=== PATIENT | male | born 1965 | race Caucasian/White ===

== ENCOUNTER 2022-10-04 22:54 | Emergency (ER) | payer MEDICARE, SELFPAY ==
--- NOTE | ~2022-10-04 | XR_ITS ---
EXAMINATION: XR FINGER, RIGHT CLINICAL INFORMATION: Second finger trauma COMPARISON: None available. TECHNIQUE: Three views of the right hand second digit. FINDINGS: No fracture or dislocation. Alignment maintained. Joint spaces are maintained. The soft tissues are unremarkable. XR/XR finger RT min 2V IMPRESSION: No fracture or malalignment.
[2022-10-04 23:07] VITALS: BP 171/93; PULSE 61; RESP 16; TEMP 36.6; O2SAT 94; BMI 36.3
[2022-10-05] MEDS: Diphth,Pertus(ACell),Tet Adult 0.5 ML SYRINGE IM (00:58)
--- NOTE | 2022-10-05 01:00 | ED.GENADULT ---
HPI - General Adult General Chief complaint: Wound/Laceration Stated complaint: Lac on Finger Time Seen by Provider: 10/05/22 00:47 Source: patient, RN notes reviewed and old records reviewed Mode of arrival: ambulatory Limitations: no limitations History of Present Illness HPI narrative: 57-year-old male presents for evaluation of right index finger pain. The patient slammed his right index finger in a door at 6:30 p.m. last night. He complains of pain that radiates from his right index finger tip up his right arm His pain is 8/10. He is able to flex and extend the finger He sustained a laceration to the tip of the finger He is unsure of his last tetanus shot Related Data Allergies Allergy/AdvReac Type Severity Reaction Status Date / Time No Known Allergies Allergy Verified 10/04/22 23:11 Review of Systems Musculoskeletal: Comments: Pain to right 2nd finger Integumentary/Breasts: Comments: Open wound to tip of right 2nd finger PMFSH Social History Social History Advance Directives: No Advance Directives Information Provided: Yes Physical Exam ED Vital Signs: Vital Signs - 24 hr 10/04/22 23:07 Temperature 97.8 F Pulse Rate 61 Respiratory Rate 16 Blood Pressure 171/93 H Pulse Oximetry 94 Oxygen Delivery Method Room Air BMI result Body Mass Index 36.3 Const General: healthy appearing, comfortable, no acute distress, alert and awake Nutritional Appearance: well nourished Orientation/consciousness: patient oriented x3 Resp Effort & Inspection: normal respiratory effort, able to speak in complete sentences and not labored Neuro General: patient oriented x3 Cranial nerves: Yes Bilaterally intact EOM present Cognition (Neuro): normal cognition Extrem Other: Patient has a 2 cm flap of skin missing from the very tip of the right 2nd finger. This is an avulsion, no laceration amenable to sutures. There is no visible bone underneath. Patient has some tenderness to the right 2nd the IP and PIP joints. No tenderness the right 2nd MCP joint. Course Reevaluation(s) Reevaluation #1: Patient re-evaluated after cleaning the wound will better. There is only an avulsion, the soft tissue underneath is actually intact in just the skin is missing. We will wrap the finger. He will be given a dose of ibuprofen. There is no fracture seen on x-ray, Medications Administered Discontinued Medications Generic Name Dose Route Start Last Admin Trade Name Freq PRN Reason Stop Dose Admin Diphtheria/Tetanus/Acell Pertussis 0.5 ml 10/05/22 00:53 10/05/22 00:58 Diphth,Pertus(Acell),Tet Adult 0.5 Ml Syringe IM 10/05/22 00:54 0.5 ml .ONCE ONE Administration Medical Decision Making Medical Decision Making MDM Narrative: Clinically the patient has an avulsion injury. Will get an x-ray to rule out open fracture. Patient's tetanus was updated as he cannot remember the last time he had 1. Will have the patient soak the tip of his finger, so walk-in clinic to been better evaluate to make sure there is no area that can be sutured. Differential Diagnosis Avulsion injury Laceration Finger fracture Dislocation Open fracture Discharge Plan Discharge Clinical Impression: Avulsion of skin Patient Disposition: Home, Self-Care Instructions: Skin Avulsion (ED) Additional Instructions: Your x-ray did not show any fractures. There is a piece of skin missing from the tip of the finger that cannot be replaced. This will eventually scar over Use ibuprofen/Tylenol for the pain. You may apply topical antibiotic to the wound Your tetanus shot was updated today
--- NOTE | 2022-10-05 01:04 | PC.NURSE ---
Pt soaking finger in warm water per PA
[2022-10-05] MEDS: Ibuprofen 800 MG TABLET PO (01:40)
== END 2022-10-05 01:48 | disposition home or self-care (01) ==
PROVIDERS: Emergency Provider Emergency Medicine
DX: S61.210A Laceration without foreign body of right index finger without damage to nail, initial encounter (principal); W23.1XXA Caught, crushed, jammed, or pinched between stationary objects, initial encounter; Y93.9 Activity, unspecified; Y92.9 Unspecified place or not applicable; Y99.9 Unspecified external cause status
CPT/HCPCS: 73140; 90471; 90715; 99283; 99284

== ENCOUNTER 2022-10-13 06:41 | Inpatient (IN) | payer MEDICARE, SELFPAY ==
--- NOTE | ~2022-10-13 | CT_ITS ---
EXAMINATION: CT ABDOMEN AND PELVIS WITHOUT CONTRAST CLINICAL INFORMATION: Abdominal pain COMPARISON: None available. TECHNIQUE: Multidetector volumetric imaging was performed from the superior aspect of the liver through the pubic symphysis. Sagittal and coronal reformatted images were obtained on the technologist's workstation. This CT examination was performed using dose optimization techniques as appropriate, variously including the following: *Automated exposure control *Adjustment of mA and/or kV according to patient size (this includes techniques or standardized protocols for targeted exams where dose is matched to indication/reason for exam; i.e. extremities or head) *Use of iterative reconstruction technique DLP: 661 mGy-cm FINDINGS: LUNG BASES: The visualized lung bases are unremarkable. LIVER, GALLBLADDER, AND BILIARY TREE: Heterogeneous liver attenuation with low-attenuation areas questionable for areas of focal fatty infiltration versus beam hardening artifact from the adjacent ribs. The gallbladder is unremarkable with no evidence of radiopaque gallstones, gallbladder wall thickening, or obvious pericholecystic inflammatory changes. PANCREAS: Unremarkable. SPLEEN: Unremarkable. ADRENAL GLANDS: Unremarkable. KIDNEYS AND URETERS: The kidneys are normal in size, shape, and attenuation. No hydronephrosis, hydroureter, or calculi seen. 2 cm cyst in the lower pole of the right kidney. No imaging follow-up recommended. No perinephric stranding. BLADDER: Unremarkable. GASTROINTESTINAL TRACT: The small and large bowel are unremarkable. The appendix is unremarkable. ABDOMINAL WALL: Small umbilical hernia containing fat. LYMPH NODES: No enlarged lymph nodes. Shotty bilateral inguinal, retroperitoneal and periportal lymph nodes. No ascites. VASCULAR: Unremarkable. PELVIC VISCERA: Unremarkable. OSSEOUS STRUCTURES: Degenerative changes of the spine. CT/CT abdomen pelvis wo IV con IMPRESSION: Heterogeneous liver attenuation, question artifact from the adjacent rib versus areas of focal fatty infiltration. Small umbilical hernia containing fat. Fleischner guidelines were followed.
--- NOTE | ~2022-10-13 | US_ITS ---
EXAMINATION: US VENOUS WITH DOPPLER UPPER EXTREMITY, BILATERAL CLINICAL INFORMATION: Bilateral swelling and pain. History of previous IV COMPARISON: None available. TECHNIQUE: Ultrasound of the upper extremity is performed using compression sonography and color and pulse Doppler flow with assessment of augmentation of flow. There is also imaging and Doppler assessment of the jugular and subclavian veins. Spectral analysis with color-flow imaging is performed. FINDINGS: Right: There is occlusive thrombus seen in the cephalic vein. The right internal jugular, subclavian, axillary, brachial and basilic veins are patent. Left: There is occlusive thrombus seen in the left basilic vein. The left internal jugular, subclavian, axillary, brachial and cephalic veins are patent. US/US venous duplex UE BI IMPRESSION: Occlusive thrombus in the right cephalic vein and left basilic vein. Findings communicated to Dr. Elam by telephone on 10/17/2022 at 3:05 PM.
--- NOTE | ~2022-10-13 | US_ITS ---
EXAMINATION: US VENOUS ULTRASOUND WITH DOPPLER LOWER EXTREMITY, LEFT CLINICAL INFORMATION: Left lower extremity redness since yesterday COMPARISON: None available. TECHNIQUE: Ultrasound of the deep veins is performed from the hip to the calf with compression sonography and color and pulse Doppler assessment. Spectral analysis with color-flow imaging is performed. FINDINGS: There is normal venous compression and respiratory variation and augmented flow. The visualized common femoral vein, superficial femoral vein, profunda femoral vein, popliteal vein, and the trifurcation region shows no evidence of deep venous thrombosis. There is no significant popliteal fossa cyst. There are multiple inguinal lymph nodes in the left groin. The largest measuring 4.3 x 0.9 x 2.2 cm. If the patient's symptoms persist, followup ultrasound in 5 days 7 days might be of value to exclude proximal propagation from a non-visualized calf vein. US/US venous duplex LE IMPRESSION: No DVT demonstrated in the left lower extremity.
--- NOTE | ~2022-10-13 | US_ITS ---
EXAMINATION: US VENOUS ULTRASOUND WITH DOPPLER LOWER EXTREMITY, LEFT CLINICAL INFORMATION: Lower extremity swelling and pain COMPARISON: None available. TECHNIQUE: Ultrasound of the deep veins is performed from the hip to the calf with compression sonography and color and pulse Doppler assessment. Spectral analysis with color-flow imaging is performed. FINDINGS: There is normal venous compression and respiratory variation and augmented flow. The visualized common femoral vein, superficial femoral vein, profunda femoral vein, popliteal vein, and the trifurcation region shows no evidence of deep venous thrombosis. There is no significant popliteal fossa cyst. If the patient's symptoms persist, followup ultrasound in 5 days 7 days might be of value to exclude proximal propagation from a non-visualized calf vein. US/US venous duplex LE IMPRESSION: No DVT demonstrated in the left lower extremity.
--- NOTE | ~2022-10-13 | CT_ITS ---
EXAMINATION: CT left lower leg without contrast INDICATION: ? gas COMPARISON: None TECHNIQUE: Multidetector volumetric imaging was obtained through the left lower leg from the knee through the ankle without intravenous contrast material. Multiplanar reformatted images in coronal and sagittal orientations were submitted. This CT examination was performed using dose optimization techniques as appropriate, variously including the following: *Automated exposure control *Adjustment of mA and/or kV according to patient size (this includes techniques or standardized protocols for targeted exams where dose is matched to indication/reason for exam; i.e. extremities or head) *Use of iterative reconstruction technique DLP: 299 mGy-cm FINDINGS: Bone mineralization is normal. No fracture or malalignment. No areas of osteolysis or periostitis. Joint spaces are normal in appearance at both the knee and ankle. No effusions. There is subcutaneous fat stranding at the anterior and lateral aspects of the lower leg proximally and at the anterior and medial aspects of the ankle. No subcutaneous gas. No fluid collections. Deep fascial planes are normal in appearance. Calf musculature is unremarkable. Tendons are grossly intact. CT/CT lower leg LT wo IV con IMPRESSION: Subcutaneous fat stranding at the proximal and medial aspects of the lower leg and ankle, most consistent with cellulitis. No subcutaneous gas or fluid collections.
[2022-10-13 07:00] VITALS: BP 120/69; PULSE 100; RESP 20; TEMP 36.4; O2SAT 100; BMI 36.8
--- NOTE | 2022-10-13 07:17 | ED_ITS ---
HPI - General Adult General Chief complaint: General Medical Stated complaint: Left leg pain/vomiting/chestpain Time Seen by Provider: 10/13/22 07:19 Source: patient Mode of arrival: ambulatory Limitations: no limitations History of Present Illness HPI narrative: This is a 57 years old male presented to the emergency department with chief complaint of left lower extremity redness since yesterday he also report of fever and vomiting . He has no comorbidity but high blood pressure Onset (ago): day(s) (1) Radiation: non-radiation Severity: moderate Quality: burning Pain Consistency: constant Relieving factors: none Associated symptoms: denies other symptoms Related Data Home Medications Medication Instructions Recorded Confirmed ascorbic acid (vitamin C) 1,000 mg 1,000 mg PO DAILY 10/13/22 10/13/22 tablet (Vitamin C) cholecalciferol (vitamin D3) 25 25 mcg PO DAILY 10/13/22 10/13/22 mcg (1,000 unit) tablet (Vitamin D3) hydralazine 50 mg tablet 50 mg PO BIDWM 10/13/22 10/13/22 losartan 100 1 tab PO DAILY 10/13/22 10/13/22 mg-hydrochlorothiazide 25 mg tablet (Hyzaar) Allergies Allergy/AdvReac Type Severity Reaction Status Date / Time No Known Allergies Allergy Verified 10/04/22 23:11 Review of Systems Constitutional: Constitutional: Reports no additional constitutional complaints and Reports fever(s) Gastrointestinal: Gastrointestinal: Reports vomiting [facility] Past Medical History [facility] Narrative: Hypertension Medical History Psoriasis Social History Social History Alcohol intake: never Patient Tobacco Use Status: Never used Tobacco Smoked in Last 30 Days: No Use of substances other than those prescribed or required for medical reasons: No Advance Directives: No Advance Directives Information Provided: Yes Nutrition Risks: No Nutritional Risk Physical Exam ED Vital Signs: Vital Signs - 24 hr 10/13/22 07:00 10/13/22 07:37 10/13/22 09:53 Temperature 97.6 F 97.6 F 98.7 F Pulse Rate 100 94 81 Respiratory Rate 20 18 14 Blood Pressure 120/69 108/68 120/52 L Pulse Oximetry 100 95 93 Oxygen Delivery Method Room Air Room Air Room Air BMI result Body Mass Index 36.8 Const General: cooperative Nutritional Appearance: well nourished Orientation/consciousness: patient oriented x3 HENMT Head: Yes normal to inspection General nose exam: Normal external nose present Face and sinus: Yes normal facial exam Mouth: Normal oral and palatal mucosa present Neck Neck: Yes normal visual inspection, Yes full ROM and Yes no lymphadenopathy Chest Chest palpation & inspection: normal inspection of the chest Resp Effort & Inspection: normal respiratory effort Auscultation: clear to auscultation bilaterally Cardio Jugular venous distension: no JVD Rate: regular rate Rhythm: regular rhythm GI Inspection: Yes normal to inspection Palpation (GI): Soft to palpation, not firm, nontender and no guarding Skin Other: Lower extremities there is extensive redness left knee down to the foot he has excellent pulses in the foot Neuro General: patient oriented x3 Extrem Other: Course Reevaluation(s) Reevaluation #1: vital sign remain stable no tachycardia no hypotension,WBC noted along with lactic acid ,Broad spectrum AB started IV fluids ordered base on Lean body Weight ,also got 250 cc fluids with vanco and 50 cc with cefepine,US leg showed no DVT,I will order ct also to r/o gas Time: 09:45 Reevaluation #2: ct done c/w cellulitis no gas no abscess,BP remain stable 123/52 hert rate 81,good capillary refill,COR RRR,Lungs clear non toxic Time: 10:28 Medications Administered Generic Name Dose Route Start Last Admin Trade Name Freq PRN Reason Stop Dose Admin Enoxaparin Sodium 40 mg 10/13/22 10:45 10/13/22 12:27 Enoxaparin Sodium 40 Mg/0.4 Ml Syringe SUBCUT 40 mg Q24H LUCÍA Administration Lactated Ringer's 1,000 mls @ 100 mls/hr 10/13/22 10:45 10/13/22 12:08 Lr IVCONT 100 mls/hr .Q10H LUCÍA Administration Piperacillin Sod/Tazobactam 50 mls @ 100 mls/hr 10/13/22 13:00 10/13/22 13:51 Sod 3.375 gm/ Sodium Chloride IV Infused Q6H LUCÍA Infusion Discontinued Medications Generic Name Dose Route Start Last Admin Trade Name Freq PRN Reason Stop Dose Admin Cefepime HCl 2 gm/ Sodium 50 mls @ 100 mls/hr 10/13/22 08:20 10/13/22 09:00 Chloride IV 10/13/22 08:49 Infused ONCE ONE Infusion Sodium Chloride 3,102.57 mls @ 3,102.57 mls/hr 10/13/22 08:20 10/13/22 11:43 Ns 30 ml/kg infuse over 1 hr (3102.57 ml) 10/13/22 09:19 Infused IV Infusion .Q1H STA Vancomycin HCl 2,000 mg in 500 mls @ 250 mls/hr 10/13/22 09:45 10/13/22 12:13 Vancomycin/Ns IV 10/13/22 11:44 Infused ONCE ONE Infusion Morphine Sulfate 4 mg 10/13/22 08:45 10/13/22 08:53 Morphine Sulfate 4 Mg/Ml Cartridge IVPUSH 10/13/22 08:46 4 mg ONCE ONE Administration Protocol Potassium Chloride 20 meq 10/13/22 09:00 10/13/22 09:38 Potassium Chloride Er 20 Meq Tab.Er.Prt PO 10/13/22 09:01 20 meq ONCE ONE Administration Medical Decision Making Medical Decision Making [facility] Narrative: Patient presented with extensive cellulitis of the left lower extremity we will get labs of blood culture start antibiotic anticipate admission Differential Diagnosis Differential Diagnoses: The differential diagnosis associated with the presentation includes Cellulitis/sepsis/leg abscess Admission/Observation Consideration of admission/observation: Escalation of care including admission/observation considered Consult Healthcare Provider Management of the patient was discussed with: Hospitalist Lab Data [facility] Lab Attestation statement: I reviewed the patient's lab results. Leukocytosis/lactic acidosis hyperkalemia acute renal failure 10/13/22 07:55 10/13/22 07:55 Labs: Lab Results 10/13/22 10/13/22 10/13/22 Range/Units 07:55 07:55 07:55 WBC 28.7 H (4.8-10.8) X10*3/uL RBC 5.32 (4.60-5.80) X10*6/uL Hgb 15.5 (14.0-18.0) g/dl Hct 44.3 (42.0-52.0) % MCV 83.3 (80.0-98.0) fL MCH 29.1 (27.0-33.0) pg MCHC 35.0 (31.0-36.0) g/dl RDW 12.1 (11.0-16.0) % Plt Count 239 (160-400) X10*3/uL MPV 9.6 (9.4-12.4) fL Immature Gran % (Auto) 1.3 H (0.0-0.4) % Neut % (Auto) 88.9 H (45-73) % Lymph % (Auto) 4.8 L (20-40) % [place] % (Auto) 4.8 (2-11) % Eos % (Auto) 0.0 (0-4) % Baso % (Auto) 0.2 (0-2) % Lymph # (Auto) 1.4 (1.2-4.9) X10*3/uL [place] # (Auto) 1.4 H (0.1-1.2) X10*3/uL Eos # (Auto) 0.0 (0.0-0.4) X10*3/uL Baso # (Auto) 0.1 (0.0-0.2) X10*3/uL Abs Immat Gran (auto) 0.37 H (0.00-0.03) X10*3/uL Absolute Neuts (auto) 25.5 H (2.0-8.3) x10*3/uL Absolute Nucleated RBC 0.000 (0.0-0.012) X10*3/uL Nucleated RBC % (auto) 0.0 (0.0-0.2) /100WBC Smear Tech's Comments VERIFIED Sodium 134 L (135-145) mmol/L Potassium 3.2 L (3.3-5.1) mmol/L Chloride 96 (96-108) mmol/L Carbon Dioxide 26 (22-29) mmol/L Anion Gap 15 (12-20) BUN 26 H (9-16) mg/dL Creatinine 1.84 H (0.5-1.4) mg/dL Estim Creat Clear Calc 48.6 Estimated GFR 38 Random Glucose 207 H (60-115) mg/dL Lactic Acid 3.1 H* (0.5-2.0) mmol/L Lactic Acid F/U @ 2Hr (0.5-2.0) mmol/L Calcium 10.2 (8.4-10.2) mg/dL Total Bilirubin 1.1 H (0.0-1.0) mg/dL AST 18 (5-37) U/L ALT 26 (0-40) U/L Alkaline Phosphatase 68 (39-117) U/L Total Protein 7.4 (6.5-8.0) g/dL Albumin 4.3 (3.5-5.0) g/dL 10/13/22 Range/Units 10:21 WBC (4.8-10.8) X10*3/uL RBC (4.60-5.80) X10*6/uL Hgb (14.0-18.0) g/dl Hct (42.0-52.0) % MCV (80.0-98.0) fL MCH (27.0-33.0) pg MCHC (31.0-36.0) g/dl RDW (11.0-16.0) % Plt Count (160-400) X10*3/uL MPV (9.4-12.4) fL Immature Gran % (Auto) (0.0-0.4) % Neut % (Auto) (45-73) % Lymph % (Auto) (20-40) % [place] % (Auto) (2-11) % Eos % (Auto) (0-4) % Baso % (Auto) (0-2) % Lymph # (Auto) (1.2-4.9) X10*3/uL [place] # (Auto) (0.1-1.2) X10*3/uL Eos # (Auto) (0.0-0.4) X10*3/uL Baso # (Auto) (0.0-0.2) X10*3/uL Abs Immat Gran (auto) (0.00-0.03) X10*3/uL Absolute Neuts (auto) (2.0-8.3) x10*3/uL Absolute Nucleated RBC (0.0-0.012) X10*3/uL Nucleated RBC % (auto) (0.0-0.2) /100WBC Smear Tech's Comments Sodium (135-145) mmol/L Potassium (3.3-5.1) mmol/L Chloride (96-108) mmol/L Carbon Dioxide (22-29) mmol/L Anion Gap (12-20) BUN (9-16) mg/dL Creatinine (0.5-1.4) mg/dL Estim Creat Clear Calc Estimated GFR Random Glucose (60-115) mg/dL Lactic Acid (0.5-2.0) mmol/L Lactic Acid F/U @ 2Hr 1.2 (0.5-2.0) mmol/L Calcium (8.4-10.2) mg/dL Total Bilirubin (0.0-1.0) mg/dL AST (5-37) U/L ALT (0-40) U/L Alkaline Phosphatase (39-117) U/L Total Protein (6.5-8.0) g/dL Albumin (3.5-5.0) g/dL Independent Interpretation I performed an independent interpretation of an: Ultrasound Interpretation: No DVT Radiology Impression Discussion of test interpretation with radiology: I have reviewed the radiologist's reading. Radiologist Impression: performed. FINDINGS: There is normal venous compression and respiratory variation and augmented flow. The visualized common femoral vein, superficial femoral vein, profunda femoral vein, popliteal vein, and the trifurcation region shows no evidence of deep venous thrombosis. ? There is no significant popliteal fossa cyst. There are multiple inguinal lymph nodes in the left groin. The largest measuring 4.3 x 0.9 x 2.2 cm. If the patient's symptoms persist, followup ultrasound in 5 days 7 days might be of value to exclude proximal propagation from a non-visualized calf vein. US/US venous duplex LE LT IMPRESSION: No DVT demonstrated in the left lower extremity. ? External Record Review External record reviewed: Inpatient record Chronic Conditions Patient?s care impacted by: Hypertension Discharge Plan Discharge Clinical Impression: Cellulitis of left leg, Acidosis, lactic, Acute renal failure, Acute hypokalemia Patient Disposition: Admitted As Inpatient
[2022-10-13 07:37] VITALS: BP 108/68; PULSE 94; RESP 18; TEMP 36.4; O2SAT 95
--- NOTE | 2022-10-13 07:39 | PC.NURSE ---
pt AOx3, reporting left groin pain that is radiating down to left leg. leg is red and warm to touch. Pedal pulses intact. Pt reporting N/V/D yesterday which has mostly subsided. Vitals stable. Will draw lab work
[2022-10-13 08:04] LABS: Basophils Absolute Auto 0.1 X10*3/uL (0.0-0.2); Basophils Percent Auto 0.2 % (0-2); Hematocrit 44.3 % (42.0-52.0); Hemoglobin 15.5 g/dl (14.0-18.0); Imm Gran Abs Auto 0.37 X10*3/uL (0.00-0.03); Imm Gran Pct Auto 1.3 % (0.0-0.4); Lymphocytes Absolute Auto 1.4 X10*3/uL (1.2-4.9); Lymphocytes Percent Auto 4.8 % (20-40); MANUAL DIFF FLAG SCAN; Mean Corpuscular Hemoglobin 29.1 pg (27.0-33.0); Mean Corpuscular Volume 83.3 fL (80.0-98.0); Mean Platelet Volume 9.6 fL (9.4-12.4); Monocytes Absolute Auto 1.4 X10*3/uL (0.1-1.2); Monocytes Percent Auto 4.8 % (2-11); Neutrophils Absolute Auto 25.5 x10*3/uL (2.0-8.3); Neutrophils Percent Auto 88.9 % (45-73); Platelet Count 239 X10*3/uL (160-400); Red Blood Count 5.32 X10*6/uL (4.60-5.80); Red Cell Distribution Width 12.1 % (11.0-16.0); SCAN SMEAR FLAG 1; White Blood Count 28.7 X10*3/uL (4.8-10.8)
[2022-10-13 08:19] LABS: Lactic Acid 3.1 mmol/L (0.5-2.0)
[2022-10-13 08:20] LABS: Alanine Aminotransferase 26 U/L (0-40); Albumin Level 4.3 g/dL (3.5-5.0); Alkaline Phosphatase 68 U/L (39-117); Anion Gap 15 (12-20); Aspartate Amino Transferase 18 U/L (5-37); Bilirubin Total 1.1 mg/dL (0.0-1.0); Blood Urea Nitrogen 26 mg/dL (9-16); Calcium 10.2 mg/dL (8.4-10.2); Carbon Dioxide 26 mmol/L (22-29); Chloride 96 mmol/L (96-108); Creatinine Clr Calc Pharmacy 48.6; Estimated Glomerular Filt Rate 38; Glucose Random 207 mg/dL (60-115); Potassium 3.2 mmol/L (3.3-5.1); Sodium 134 mmol/L (135-145); Total Protein 7.4 g/dL (6.5-8.0)
[2022-10-13 08:22] LABS: SLIDE REVIEW VERIFIED
[2022-10-13] MEDS: cefEPime HCl 2 GM in 0.9 % Sodium Chloride 50 ML IV (08:30)
--- NOTE | 2022-10-13 08:31 | PC.NURSE ---
cefepime started per order. Initial vial of vanco was wasted be nurse was unable to get diluted med back into bag of saline. After removing some air from the bag we were able to add the med back to the bag and another vial of vanco was not needed and not removed from Pyxis.
[2022-10-13] MEDS: Morphine Sulfate 4 MG/ML CARTRIDGE IVPUSH ×2 (08:53→18:48)
--- NOTE | 2022-10-13 09:32 | PC.NURSE ---
Vanco was not hung because when order was change dosing was not correct. Pharmacy is changing dosing. When verified, this RN will admin vanco as ordered.
[2022-10-13] MEDS: vancomycin/NS 2,000 MG/500 ML PLAST..BAG 250 MG IV (09:38)
[2022-10-13] MEDS: Potassium Chloride ER 20 MEQ TAB.ER.PRT PO (09:38)
--- NOTE | 2022-10-13 09:40 | PC.NURSE ---
Pt back from CT scan. Adjusted Vanco (2g in 500ml) hanging per order. will cont to sandra
[2022-10-13 09:53] VITALS: BP 120/52; PULSE 81; RESP 14; TEMP 37.1; O2SAT 93
[2022-10-13 10:01] LABS: Reflex Lactate? Lactic Acid Added
[2022-10-13 10:36] LABS: ~Lactic Acid-LAB USE ONLY 1.2 mmol/L (0.5-2.0)
--- NOTE | 2022-10-13 10:51 | PHA.MEDREC ---
Pharmacy Consult ? Medication Reconciliation Pharmacy has completed the medication reconciliation Spoke to patient to confirm medications. Patient states he only takes Hyzaar 100/25 mg daily and Hydralazine 50mg BIDWM. Patient's prescriptions were filled at [address], but does not show up on claim history. Patient prefers [facility] as primary pharmacy when in [place].
[2022-10-13 11:37] LABS: Estimated Average Glucose 108 mg/dL; Hemoglobin A1C 149.0242 umol/L; Hemoglobin A1c % 5.4 %
--- NOTE | 2022-10-13 11:41 | PM.IMHP ---
History of Present Illness Date of Service: 10/13/22 Chief Complaint: LLE pain and swelling A 57 years old male with PMH of psoriasis who presents to the hospital complaining of LLE erythema and pain for 1 day CLINICAL DOCUMENTATION SPEC. the patient reports that he went for dinner on and started feeling sick to his stomach after that with nausea, vomiting and diarrhea which has improved since but noticed Saturday morning LLE swelling and pain associated with chills and feeling unwell. No headache, chest pain, palpitations, SOB, urinary symptoms. In ED found to have elevated WBCs, tachycardia and elevated LA. admitted for treatment of LLE cellulitis. Review of Systems Review of Systems: No fever, but has chills or weakness No chest pain, palpitation No shortness of breath or coughing No abdominal pain, nausea or vomiting No urinary symptoms LLE rash, erythema PMFSH Medical History Psoriasis Social History Alcohol intake: never Smoked in Last 30 Days: No Use of substances other than those prescribed or required for medical reasons: No Advance Directives: No Advance Directives Information Provided: Yes Meds Allergies Allergy/AdvReac Type Severity Reaction Status Date / Time No Known Allergies Allergy Verified 10/04/22 23:11 Active Medications: Current Medications Acetaminophen (Acetaminophen 325 Mg Tablet) 650 mg PO Q6H PRN PRN Reason: Pain, Mild (Pain Scale 1-3) Enoxaparin Sodium (Enoxaparin Sodium 40 Mg/0.4 Ml Syringe) 40 mg SUBCUT Q24H [facility] Vancomycin HCl (Vancomycin/Ns) 2,000 mg in 500 mls @ 250 mls/hr IV ONCE ONE Stop: 10/13/22 11:44 Last Admin: 10/13/22 09:38 Dose: 250 mls/hr Piperacillin Sod/Tazobactam (Sod 2.25 gm/ Sodium Chloride) 50 mls @ 100 mls/hr IV Q6H LUCÍA Lactated Ringer's (Lr) 1,000 mls @ 100 mls/hr IVCONT .Q10H LUCÍA Morphine Sulfate (Morphine Sulfate 4 Mg/Ml Cartridge) 4 mg IVPUSH Q4H PRN; Protocol PRN Reason: Pain, Severe (Pain Scale 7-10) Ondansetron HCl (Ondansetron Hcl 4 Mg/2 Ml Vial) 4 mg IVPUSH Q8H PRN PRN Reason: Nausea and Vomiting Pharmacy Consult (Consult Rx Perform Med Rec) 1 each MISCELLANE ONCE PRN PRN Reason: Consult order Pharmacy Consult (Consult Rx Vancomycin Dosing) 1 each MISCELLANE DAILY PRN PRN Reason: Consult order Sodium Chloride (0.9 % Sodium Chloride Flush 3 Ml Syringe) 3 ml IVFLUSH [facility] Medications Medication Instructions Recorded Confirmed Last Taken Type ascorbic acid (vitamin C) 1,000 mg 1,000 mg PO DAILY 10/13/22 10/13/22 10/13/22 09:00 History tablet (Vitamin C) cholecalciferol (vitamin D3) 25 25 mcg PO DAILY 10/13/22 10/13/22 10/13/22 09:00 History mcg (1,000 unit) tablet (Vitamin D3) hydralazine 50 mg tablet 50 mg PO BIDWM 10/13/22 10/13/22 10/13/22 09:00 History losartan 100 1 tab PO DAILY 10/13/22 10/13/22 10/13/22 09:00 History mg-hydrochlorothiazide 25 mg tablet (Hyzaar) Physical Exam Vital Signs and Narrative: Vital Signs: Last Vital Signs Temp 98.7 F 10/13/22 09:53 Pulse 81 10/13/22 09:53 Resp 14 10/13/22 09:53 BP 120/52 L 10/13/22 09:53 Pulse Ox 93 10/13/22 09:53 O2 Del Method Room Air 10/13/22 09:53 BMI result Body Mass Index 36.8 Const: Other: Constitutional : Awake, interactive, not in distress Neck : Normal inspection, Supple Cardiovascular : RRR, no JVP, no lower extremity edema Respiratory : good bilateral air entry, no crackles, wheezes or rhonchi Gastrointestinal: soft, lax, Normal bowel sounds, Non tender Skin : Warm, Dry, LLE erythema and tenderness with warmth, dry plaque of psoriasis on knee, normal ROM Neurological : Alert & oriented x3, No focal deficit Results Labs 10/13/22 07:55 10/13/22 07:55 Labs: Laboratory Results - last 24 hr 10/13/22 10/13/22 10/13/22 07:55 07:55 07:55 MCV 83.3 MCH 29.1 MCHC 35.0 RDW 12.1 Plt Count 239 MPV 9.6 Immature Gran % (Auto) 1.3 H Neut % (Auto) 88.9 H Lymph % (Auto) 4.8 L [place] % (Auto) 4.8 Eos % (Auto) 0.0 Baso % (Auto) 0.2 Lymph # (Auto) 1.4 [place] # (Auto) 1.4 H Eos # (Auto) 0.0 Baso # (Auto) 0.1 Abs Immat Gran (auto) 0.37 H Absolute Neuts (auto) 25.5 H Absolute Nucleated RBC 0.000 Nucleated RBC % (auto) 0.0 Smear Tech's Comments VERIFIED Anion Gap 15 Estim Creat Clear Calc 48.6 Estimated GFR 38 Random Glucose 207 H Estimat Average Glucose Hemoglobin A1c % Lactic Acid 3.1 H* Lactic Acid F/U @ 2Hr Calcium 10.2 Total Bilirubin 1.1 H AST 18 ALT 26 Alkaline Phosphatase 68 Total Protein 7.4 Albumin 4.3 10/13/22 10/13/22 10:21 Unknown MCV MCH MCHC RDW Plt Count MPV Immature Gran % (Auto) Neut % (Auto) Lymph % (Auto) [place] % (Auto) Eos % (Auto) Baso % (Auto) Lymph # (Auto) [place] # (Auto) Eos # (Auto) Baso # (Auto) Abs Immat Gran (auto) Absolute Neuts (auto) Absolute Nucleated RBC Nucleated RBC % (auto) Smear Tech's Comments Anion Gap Estim Creat Clear Calc Estimated GFR Random Glucose Estimat Average Glucose 108 Hemoglobin A1c % 5.4 Lactic Acid Lactic Acid F/U @ 2Hr 1.2 Calcium Total Bilirubin AST ALT Alkaline Phosphatase Total Protein Albumin Imaging Radiologist's Impressions: Impressions Venous Duplex 10/13/22 08:16 IMPRESSION: No DVT demonstrated in the left lower extremity. Lower Extremity CT 10/13/22 09:59 IMPRESSION: Subcutaneous fat stranding at the proximal and medial aspects of the lower leg and ankle, most consistent with cellulitis. No subcutaneous gas or fluid collections. Assessment and Plan (1) Cellulitis of left leg: Status: Acute (2) Sepsis: Status: Acute (3) Acidosis, lactic: Status: Acute (4) Acute renal failure: Status: Acute (5) Acute hypokalemia: Status: Acute Plan A 57 years old male with PMH of psoriasis who presents to the hospital complaining of LLE erythema and pain for 1 day CLINICAL DOCUMENTATION SPEC. Sepsis 2/2 LLE cellulitis pending cultures broad spectrum Abx of Vanco and Zosyn ammonia lotion for dry skin Lactic acidosis 2/2 sepsis should correct with IVF HELEN no clear baseline but seems dehydration related follow with BMP Hypokalemia replaced follow BMP HTN Continue hydralazine DVT PPx Lovenox The patient will likely need 2 overnight hospital stay for treatment of sepsis pending final blood culture Time Spent With Patient Time: Total time managing care of this patient today ____ minutes. Quality Stroke Does the patient have a stroke diagnosis?: No VTE Prior VTE?: No VTE Risk Level:: Medical - moderate - high VTE Device Contraindication: Treatment Not Indicated VTE Drug Contraindication: N/A - Med Ordered
[2022-10-13] MEDS: Lactated Ringers 1,000 ML 100 ML IVCONT ×2 (12:08→21:48)
[2022-10-13 12:15] LABS: Appearance Urine Clear; Color Urine Yellow; Glucose Urine UA Negative (Negative); Leukocyte Esterase Urine Trace (Negative); Nitrite Urine Negative (Negative); UMIC TRIGGER UACC YES; Urine Blood Negative (Negative); Urine Ketones Negative (Negative); Urine Protein 30 (1+) mg/dL (Neg-Trace)
[2022-10-13 12:18] LABS: Bacteria Urine None Seen (None Seen); Hyaline Casts Urine 0-2 /LPF (0-2); Squamous Epithelial Cell Urine 0-2 /HPF (0-2); WBC Urine 0-5 /HPF (0-5)
[2022-10-13] MEDS: Enoxaparin Sodium 40 MG/0.4 ML SYRINGE SUBCUT (12:27)
[2022-10-13] MEDS: Piperacillin Sodium/Tazobactam 3.375 GM in 0.9 % Sodium Chloride 50 ML IV ×2 (12:28→18:48)
--- NOTE | 2022-10-13 12:29 | PC.NURSE ---
called pharmacy to get zocyn verified. pharm had to change dose. Dose changed, med verified, rescheduled, and given per AUG.
--- NOTE | 2022-10-13 12:30 | PHA.PROG ---
Admission Date/Time: October 13, 2022 10:33 Indication: sepsis Weight in k.419 kg Adjusted body weight in K.6 kg Allison body weight in K.8 kg Obesity Dosing Indication % IBW: Serum Creatinine - Last 168 Hours 10/13/22 07:55 Creatinine 1.84 H Estimated CrCl and GFR - Last 168 Hours 10/13/22 07:55 Estim Creat Clear Calc 48.6 Estimated GFR 38 Vancomycin Loading Dose: 2000 mg x 1 Current Vancomycin Dosing Regimen: 1000 mgq24h Vancomycin Monitoring using AUC goal of 400 - 600 range with trough as surrogate marker: predicted auc of 532 Date and Time for next Vancomycin Level to be drawn: random 10/14/22 @0700 Pharmacist Comments on Vancomycin Plan: obese model used Vancomycin dosing will take advantage of [employer] as a clinical decision support tool that uses Bayesian modeling to calculate individual patient's pharmacokinetic parameters and forecast the patient's drug concentration time course with the target goal AUC 24 range of 400 - 600 mg/L/hr.
--- NOTE | 2022-10-13 12:36 | PC.NURSE ---
fluids started, antibiotics ended per documented.
--- NOTE | 2022-10-13 14:12 | PC.NURSE ---
assumed care of patient at 1300. patient is pleasant and cooperative with staff. able to make needs known. call porras placed on bed railing. ambulated to the bathroom with steady gait. will CTM
[2022-10-13 16:00] VITALS: BP 147/82; PULSE 93; RESP 18; TEMP 37.3; O2SAT 94
[2022-10-13] MEDS: hydrALAZINE HCl 50 MG TABLET PO (17:02)
[2022-10-13 19:45] VITALS: BMI 39.1
[2022-10-13] MEDS: Ammonium Lactate 12 % Lotion 226 GM BOTTLE 1 APPL TOPICAL (22:02)
[2022-10-13 22:33] VITALS: PULSE 84; RESP 20; O2SAT 95
[2022-10-14] MEDS: Piperacillin Sodium/Tazobactam 3.375 GM in 0.9 % Sodium Chloride 50 ML IV ×4 (00:56→18:15)
[2022-10-14 04:00] VITALS: BP 123/62; PULSE 78; RESP 18; TEMP 37; O2SAT 96
[2022-10-14] MEDS: Morphine Sulfate 4 MG/ML CARTRIDGE IVPUSH ×4 (05:14→20:44)
[2022-10-14 05:47] VITALS: RESP 18
[2022-10-14 06:01] LABS: Hematocrit 38.3 % (42.0-52.0); Hemoglobin 13.3 g/dl (14.0-18.0); Mean Corpuscular HGB Conc 34.7 g/dl (31.0-36.0); Mean Corpuscular Hemoglobin 29.4 pg (27.0-33.0); Mean Corpuscular Volume 84.7 fL (80.0-98.0); Mean Platelet Volume 9.9 fL (9.4-12.4); Platelet Count 198 X10*3/uL (160-400); Red Blood Count 4.52 X10*6/uL (4.60-5.80); Red Cell Distribution Width 12.2 % (11.0-16.0); White Blood Count 17.1 X10*3/uL (4.8-10.8)
[2022-10-14] MEDS: Lactated Ringers 1,000 ML 100 ML IVCONT (06:07)
[2022-10-14 06:35] LABS: Anion Gap 12 (12-20); Blood Urea Nitrogen 15 mg/dL (9-16); Calcium 9.4 mg/dL (8.4-10.2); Carbon Dioxide 24 mmol/L (22-29); Chloride 106 mmol/L (96-108); Estimated Glomerular Filt Rate > 60; Glucose Random 116 mg/dL (60-115); Potassium 3.9 mmol/L (3.3-5.1); Sodium 138 mmol/L (135-145)
[2022-10-14 07:31] VITALS: BP 117/63; PULSE 63; RESP 18; TEMP 36.3; O2SAT 92
[2022-10-14] MEDS: Cholecalciferol (Vitamin D3) 25 MCG TABLET PO (08:11)
[2022-10-14] MEDS: Ascorbic Acid 500 MG TABLET 1000 MG PO (08:11)
[2022-10-14] MEDS: Ammonium Lactate 12 % Lotion 226 GM BOTTLE 1 APPL TOPICAL ×2 (08:12→20:49)
[2022-10-14] MEDS: vancomycin HCL 1,000 MG in 0.9 % Sodium Chloride 250 ML 270 MG IV (08:12)
[2022-10-14] MEDS: hydrALAZINE HCl 50 MG TABLET PO ×2 (08:12→16:18)
[2022-10-14] MEDS: 0.9 % Sodium Chloride Flush 3 ML SYRINGE IVFLUSH ×3 (08:12→20:53)
--- NOTE | 2022-10-14 09:24 | HE.PHANOTE ---
Addendum entered by Venecia Goetz [facility] 10/14/22 10:16: javier Ledezma would like to increase to 1250 mg q12h which still gives a predicted auc of 586. Patient has severe infection and would like the values higher. Original Note: Vancomycin Dosing Addendum Scr decreased significantly since yesterday. ( 1.84 to 0.79). Adjusting Vancomcyin dose from 1000 mg q24h to 1000 mg q12h. Will continue with getting level on 10/15/22 @0700 and will adjust accordingly
[2022-10-14] MEDS: Enoxaparin Sodium 40 MG/0.4 ML SYRINGE SUBCUT (09:47)
--- NOTE | 2022-10-14 09:52 | HO.PM.IMPN ---
Subjective Subjective Date of Service: 10/14/22 Interval History: Seen and evaluated this morning still has significant LLE swelling and erythema with pain no other overnight events reported Review of Systems No fever, but has chills or weakness No chest pain, palpitation No shortness of breath or coughing No abdominal pain, nausea or vomiting No urinary symptoms LLE rash, erythema Physical Exam Vital Signs: Vital Signs: Last Vital Signs Temp 97.4 F 10/14/22 07:31 Pulse 63 10/14/22 07:31 Resp 18 10/14/22 07:31 BP 117/63 10/14/22 07:31 Pulse Ox 92 10/14/22 07:31 O2 Del Method Room Air 10/14/22 07:31 BMI result Body Mass Index 39.1 Const: Other: Constitutional : Awake, interactive, not in distress Neck : Normal inspection, Supple Cardiovascular : RRR, no JVP, no lower extremity edema Respiratory : good bilateral air entry, no crackles, wheezes or rhonchi Gastrointestinal: soft, lax, Normal bowel sounds, Non tender Skin : Warm, Dry, LLE erythema and tenderness with warmth, dry plaque of psoriasis on knee, normal ROM Neurological : Alert & oriented x3, No focal deficit Objective Data Active Medications Acetaminophen (Acetaminophen 325 Mg Tablet) 650 mg PO Q6H PRN PRN Reason: Pain, Mild (Pain Scale 1-3) Ascorbic Acid (Ascorbic Acid 500 Mg Tablet) 1,000 mg PO DAILY [facility] Last Admin: 10/14/22 08:11 Dose: 1,000 mg Documented By: MEKHI Enoxaparin Sodium (Enoxaparin Sodium 40 Mg/0.4 Ml Syringe) 40 mg SUBCUT Q24H [facility] Last Admin: 10/14/22 09:47 Dose: 40 mg Documented By: MEKIH Hydralazine HCl (Hydralazine Hcl 50 Mg Tablet) 50 mg PO BIDWM [facility]; Protocol Last Admin: 10/14/22 08:12 Dose: 50 mg Documented By: MEKHI Lactated Ringer's (Lr) 1,000 mls @ 100 mls/hr IVCONT .Q10H [facility] Last Admin: 10/14/22 06:07 Dose: 100 mls/hr Documented By: OZORALB Piperacillin Sod/Tazobactam (Sod 3.375 gm/ Sodium Chloride) 50 mls @ 100 mls/hr IV Q6H [facility] Last Infusion: 10/14/22 06:43 Dose: 0 mls/hr Documented By: ISAIAS Vancomycin HCl 1,000 mg/ (Sodium Chloride) 270 mls @ 270 mls/hr IV Q12H [facility] Lactic Acid (Ammonium Lactate 12 % Lotion 226 Gm Bottle) 1 appl TOPICAL BID [facility]; Protocol Last Admin: 10/14/22 08:12 Dose: 1 appl Documented By: MEKHI Morphine Sulfate (Morphine Sulfate 4 Mg/Ml Cartridge) 4 mg IVPUSH Q4H PRN; Protocol PRN Reason: Pain, Severe (Pain Scale 7-10) Last Admin: 10/14/22 05:14 Dose: 4 mg Documented By: ISAIAS Ondansetron HCl (Ondansetron Hcl 4 Mg/2 Ml Vial) 4 mg IVPUSH Q8H PRN PRN Reason: Nausea and Vomiting Pharmacy Consult (Consult Rx Perform Med Rec) 1 each MISCELLANE ONCE PRN PRN Reason: Consult order Pharmacy Consult (Consult Rx Vancomycin Dosing) 1 each MISCELLANE DAILY PRN PRN Reason: Consult order Sodium Chloride (0.9 % Sodium Chloride Flush 3 Ml Syringe) 3 ml IVFLUSH QSHIFT [facility] Last Admin: 10/14/22 08:12 Dose: 3 ml Documented By: MEKHI Vitamin D (Cholecalciferol (Vitamin D3) 25 Mcg Tablet) 25 mcg PO DAILY [facility] Last Admin: 10/14/22 08:11 Dose: 25 mcg Documented By: MEKHI Labs 10/14/22 05:51 10/14/22 05:51 Labs: Laboratory Results - last 24 hr 10/13/22 10/13/22 10/13/22 10:21 11:50 11:51 MCV MCH MCHC RDW Plt Count MPV Absolute Nucleated RBC Nucleated RBC % (auto) Anion Gap Estim Creat Clear Calc Estimated GFR Random Glucose Estimat Average Glucose Hemoglobin A1c % Lactic Acid F/U @ 2Hr 1.2 Calcium Urine Color Cancelled Yellow Urine Appearance Cancelled Clear Urine pH Cancelled 7.0 Ur Specific [place] Cancelled 1.010 Urine Protein Cancelled 30 (1+) H Urine Glucose (UA) Cancelled Negative Urine Ketones Cancelled Negative Urine Blood Cancelled Negative Urine Nitrite Cancelled Negative Ur Leukocyte Esterase Cancelled Trace H Urine RBC 3-5 H Urine WBC 0-5 Ur Squamous Epith Cells 0-2 Urine Bacteria None Seen Hyaline Casts 0-2 Ur Random Sodium 10/13/22 10/13/22 10/14/22 11:51 Unknown 05:51 MCV 84.7 MCH 29.4 MCHC 34.7 RDW 12.2 Plt Count 198 MPV 9.9 Absolute Nucleated RBC 0.000 Nucleated RBC % (auto) 0.0 Anion Gap Estim Creat Clear Calc Estimated GFR Random Glucose Estimat Average Glucose 108 Hemoglobin A1c % 5.4 Lactic Acid F/U @ 2Hr Calcium Urine Color Urine Appearance Urine pH Ur Specific [place] Urine Protein Urine Glucose (UA) Urine Ketones Urine Blood Urine Nitrite Ur Leukocyte Esterase Urine RBC Urine WBC Ur Squamous Epith Cells Urine Bacteria Hyaline Casts Ur Random Sodium 24.0 10/14/22 10/14/22 05:51 05:51 MCV MCH MCHC RDW Plt Count MPV Absolute Nucleated RBC Nucleated RBC % (auto) Anion Gap 12 Estim Creat Clear Calc 117.0 Cancelled Estimated GFR > 60 Cancelled Random Glucose 116 H Estimat Average Glucose Hemoglobin A1c % Lactic Acid F/U @ 2Hr Calcium 9.4 D Urine Color Urine Appearance Urine pH Ur Specific [place] Urine Protein Urine Glucose (UA) Urine Ketones Urine Blood Urine Nitrite Ur Leukocyte Esterase Urine RBC Urine WBC Ur Squamous Epith Cells Urine Bacteria Hyaline Casts Ur Random Sodium Assessment and Plan (1) Sepsis: Status: Acute (2) Cellulitis of left leg: Status: Acute (3) Acute renal failure: Status: Acute Plan A 57 years old male with PMH of psoriasis who presents to the hospital complaining of LLE erythema and pain for 1 day [employer]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 Sepsis 2/2 LLE cellulitis pending cultures broad spectrum Abx of Vanco and Zosyn ammonia lotion for dry skin vanco trough Lactic acidosis 2/2 sepsis corrected with IVF HELEN seems dehydration related improving follow with BMP Hypokalemia replaced follow BMP HTN Continue hydralazine DVT PPx Lovenox The patient will likely need overnight hospital stay for treatment of sepsis pending final blood culture Time Spent With Patient Time: Total time managing care of this patient today ____ minutes. Quality Stroke Does the patient have a stroke diagnosis?: No VTE Prior VTE?: No VTE Risk Level:: Medical - moderate - high VTE Device Contraindication: Treatment Not Indicated VTE Drug Contraindication: N/A - Med Ordered
--- NOTE | 2022-10-14 10:34 | MHC.CM.PN ---
PT REPORTS HE LIVES ALONE IN [place] AND IS HERE VISITING HE DENIES USE OF DME OR HOME SERVICES PT SAYS HE HAS A PCP IN [place], HE DOES NOT HAVE THE NAME HE SAYS HE IS TYRON BUTTERFIELD HE DECLINES TO COMPLETE A HCP DCP: HOME NO SERVICES PT WILL DRIVE HIMSELF
[2022-10-14] MEDS: HYDROmorphone HCl 0.5 MG/0.5 ML SYRINGE IVPUSH (13:32)
[2022-10-14 15:14] VITALS: BP 151/75; PULSE 58; RESP 18; TEMP 36.9; O2SAT 94
[2022-10-14] MEDS: Betamethasone Dip Aug 0.05% Cr 15 GM TUBE 1 APPL TOPICAL ×2 (16:19→20:49)
[2022-10-14 19:27] VITALS: BP 166/86; PULSE 86; RESP 20; TEMP 37.1; O2SAT 96
[2022-10-14] MEDS: vancomycin HCL 1,250 MG in 0.9 % Sodium Chloride 250 ML 166.67 MG IV (20:54)
[2022-10-15] MEDS: Piperacillin Sodium/Tazobactam 3.375 GM in 0.9 % Sodium Chloride 50 ML IV ×4 (01:17→18:46)
[2022-10-15 03:44] VITALS: BP 140/89; PULSE 60; RESP 18; TEMP 36.2; O2SAT 96
[2022-10-15] MEDS: Morphine Sulfate 4 MG/ML CARTRIDGE IVPUSH ×3 (06:34→19:56)
[2022-10-15 07:51] LABS: Hematocrit 37.6 % (42.0-52.0); Hemoglobin 12.8 g/dl (14.0-18.0); Mean Corpuscular Hemoglobin 28.9 pg (27.0-33.0); Mean Corpuscular Volume 84.9 fL (80.0-98.0); Platelet Count 187 X10*3/uL (160-400); Red Blood Count 4.43 X10*6/uL (4.60-5.80); Red Cell Distribution Width 11.9 % (11.0-16.0); White Blood Count 9.4 X10*3/uL (4.8-10.8)
[2022-10-15 07:59] VITALS: BP 154/89; PULSE 61; RESP 18; TEMP 36.5; O2SAT 95
[2022-10-15 08:05] LABS: Anion Gap 10 (12-20); Blood Urea Nitrogen 9 mg/dL (9-16); Calcium 9.4 mg/dL (8.4-10.2); Carbon Dioxide 28 mmol/L (22-29); Chloride 106 mmol/L (96-108); Estimated Glomerular Filt Rate > 60; Glucose Random 93 mg/dL (60-115); Potassium 3.9 mmol/L (3.3-5.1); Sodium 140 mmol/L (135-145)
[2022-10-15 08:06] LABS: Estimated Glomerular Filt Rate > 60
[2022-10-15 08:07] LABS: Vancomycin Random 6.9 mcg/mL (15-20)
[2022-10-15] MEDS: Cholecalciferol (Vitamin D3) 25 MCG TABLET PO (08:42)
[2022-10-15] MEDS: Ammonium Lactate 12 % Lotion 226 GM BOTTLE 1 APPL TOPICAL ×2 (08:42→21:34)
[2022-10-15] MEDS: hydrALAZINE HCl 50 MG TABLET PO ×2 (08:42→16:59)
[2022-10-15] MEDS: Ascorbic Acid 500 MG TABLET 1000 MG PO (08:42)
[2022-10-15] MEDS: vancomycin HCL 1,250 MG in 0.9 % Sodium Chloride 250 ML 166.67 MG IV ×2 (08:42→16:59)
[2022-10-15] MEDS: Betamethasone Dip Aug 0.05% Cr 15 GM TUBE 1 APPL TOPICAL ×2 (08:43→21:34)
[2022-10-15] MEDS: 0.9 % Sodium Chloride Flush 3 ML SYRINGE IVFLUSH ×3 (08:43→19:56)
--- NOTE | 2022-10-15 08:58 | HE.PHANOTE ---
Vanomcyin dosing Level 6.8 today. Will increase dose to 1250mg Q8H Since patient is morbidly obese, will get a level after one dose to access for safety. Alice Kumar, MelissaD
[2022-10-15] MEDS: Enoxaparin Sodium 40 MG/0.4 ML SYRINGE SUBCUT (10:31)
--- NOTE | 2022-10-15 11:06 | P.PNIM_ITS ---
Subjective Subjective Date of Service: 10/15/22 Interval History: Seen and evaluated this morning still has significant LLE swelling and erythema with pain but improvement in symptoms overall no other overnight events reported Review of Systems No fever, but has chills or weakness No chest pain, palpitation No shortness of breath or coughing No abdominal pain, nausea or vomiting No urinary symptoms LLE rash, erythema Physical Exam Vital Signs: Vital Signs: Last Vital Signs Temp 97.7 F 10/15/22 07:59 Pulse 61 10/15/22 07:59 Resp 18 10/15/22 07:59 BP 154/89 H 10/15/22 07:59 Pulse Ox 95 10/15/22 07:59 O2 Del Method Room Air 10/15/22 07:59 BMI result Body Mass Index 39.1 Const: Other: Constitutional : Awake, interactive, not in distress Neck : Normal inspection, Supple Cardiovascular : RRR, no JVP, no lower extremity edema Respiratory : good bilateral air entry, no crackles, wheezes or rhonchi Gastrointestinal: soft, lax, Normal bowel sounds, Non tender Skin : Warm, Dry, LLE erythema and tenderness with warmth mildly better, dry plaque of psoriasis on knee, normal ROM Neurological : Alert & oriented x3, No focal deficit Objective Data Active Medications Acetaminophen (Acetaminophen 325 Mg Tablet) 650 mg PO Q6H PRN PRN Reason: Pain, Mild (Pain Scale 1-3) Ascorbic Acid (Ascorbic Acid 500 Mg Tablet) 1,000 mg PO DAILY COUNTS INCLUDE 234 BEDS AT THE [facility] Last Admin: 10/15/22 08:42 Dose: 1,000 mg Documented By: MARLEN Betamethasone Dipropion Augmented (Betamethasone Dip Aug 0.05% Cr 15 Gm Tube) 1 appl TOPICAL BID COUNTS INCLUDE 234 BEDS AT THE [facility]; Protocol Last Admin: 10/15/22 08:43 Dose: 1 appl Documented By: MARLEN Enoxaparin Sodium (Enoxaparin Sodium 40 Mg/0.4 Ml Syringe) 40 mg SUBCUT Q24H [facility] Last Admin: 10/15/22 10:31 Dose: 40 mg Documented By: MARLEN Hydralazine HCl (Hydralazine Hcl 50 Mg Tablet) 50 mg PO BIDWM COUNTS INCLUDE 234 BEDS AT THE [facility]; Protocol Last Admin: 10/15/22 08:42 Dose: 50 mg Documented By: MARLEN Piperacillin Sod/Tazobactam (Sod 3.375 gm/ Sodium Chloride) 50 mls @ 100 mls/hr IV Q6H COUNTS INCLUDE 234 BEDS AT THE [facility] Last Infusion: 10/15/22 07:13 Dose: 0 mls/hr Documented By: MARLEN Vancomycin HCl 1,250 mg/ (Sodium Chloride) 250 mls @ 166.667 mls/hr IV Q8H COUNTS INCLUDE 234 BEDS AT THE [facility] Last Infusion: 10/15/22 10:30 Dose: 0 mls/hr Documented By: MARLEN Lactic Acid (Ammonium Lactate 12 % Lotion 226 Gm Bottle) 1 appl TOPICAL BID COUNTS INCLUDE 234 BEDS AT THE [facility]; Protocol Last Admin: 10/15/22 08:42 Dose: 1 appl Documented By: MARLEN Morphine Sulfate (Morphine Sulfate 4 Mg/Ml Cartridge) 4 mg IVPUSH Q4H PRN; Protocol PRN Reason: Pain, Severe (Pain Scale 7-10) Last Admin: 10/15/22 06:34 Dose: 4 mg Documented By: DONI Ondansetron HCl (Ondansetron Hcl 4 Mg/2 Ml Vial) 4 mg IVPUSH Q8H PRN PRN Reason: Nausea and Vomiting Pharmacy Consult (Consult Rx Perform Med Rec) 1 each MISCELLANE ONCE PRN PRN Reason: Consult order Pharmacy Consult (Consult Rx Vancomycin Dosing) 1 each MISCELLANE DAILY PRN PRN Reason: Consult order Sodium Chloride (0.9 % Sodium Chloride Flush 3 Ml Syringe) 3 ml IVFLUSH QSHIFT COUNTS INCLUDE 234 BEDS AT THE [facility] Last Admin: 10/15/22 08:43 Dose: 3 ml Documented By: MARLEN Vitamin D (Cholecalciferol (Vitamin D3) 25 Mcg Tablet) 25 mcg PO DAILY COUNTS INCLUDE 234 BEDS AT THE [facility] Last Admin: 10/15/22 08:42 Dose: 25 mcg Documented By: MARLEN Labs 10/15/22 07:23 10/15/22 07:23 Labs: Laboratory Results - last 24 hr 10/15/22 10/15/22 10/15/22 07:23 07:23 07:23 MCV 84.9 MCH 28.9 MCHC 34.0 RDW 11.9 Plt Count 187 MPV 10.0 Absolute Nucleated RBC 0.000 Nucleated RBC % (auto) 0.0 Anion Gap Estim Creat Clear Calc 117.0 Estimated GFR > 60 Random Glucose Calcium Random Vancomycin 6.9 L 10/15/22 07:23 MCV MCH MCHC RDW Plt Count MPV Absolute Nucleated RBC Nucleated RBC % (auto) Anion Gap 10 L Estim Creat Clear Calc 120.0 Estimated GFR > 60 Random Glucose 93 Calcium 9.4 Random Vancomycin Microbiology Microbiology Results: Microbiology 10/13/22 07:55 Blood Culture - Preliminary Blood - Venous No growth after 48 hours. 10/13/22 07:55 Blood Culture - Preliminary Blood - Venous No growth after 48 hours. 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 Quality Stroke Does the patient have a stroke diagnosis?: No VTE Prior VTE?: No VTE Risk Level:: Medical - moderate - high VTE Device Contraindication: Treatment Not Indicated VTE Drug Contraindication: N/A - Med Ordered
[2022-10-15 15:15] VITALS: BP 170/90; PULSE 80; RESP 20; TEMP 37.2; O2SAT 94
[2022-10-15 15:36] LABS: Vancomycin Random 11.6 mcg/mL (15-20)
[2022-10-15 19:22] VITALS: BP 167/91; PULSE 72; RESP 17; TEMP 36.9; O2SAT 98
[2022-10-15 23:46] VITALS: RESP 17
[2022-10-16] MEDS: Piperacillin Sodium/Tazobactam 3.375 GM in 0.9 % Sodium Chloride 50 ML IV ×2 (01:04→06:37)
[2022-10-16] MEDS: vancomycin HCL 1,250 MG in 0.9 % Sodium Chloride 250 ML 166.67 MG IV ×3 (01:45→16:59)
[2022-10-16 04:00] VITALS: BP 148/78; PULSE 63; RESP 18; TEMP 36.4; O2SAT 96
[2022-10-16 04:55] LABS: Hematocrit 38.7 % (42.0-52.0); Hemoglobin 13.3 g/dl (14.0-18.0); Mean Corpuscular HGB Conc 34.4 g/dl (31.0-36.0); Mean Corpuscular Hemoglobin 28.9 pg (27.0-33.0); Mean Corpuscular Volume 83.9 fL (80.0-98.0); Mean Platelet Volume 9.7 fL (9.4-12.4); Platelet Count 195 X10*3/uL (160-400); Red Blood Count 4.61 X10*6/uL (4.60-5.80); Red Cell Distribution Width 11.9 % (11.0-16.0); White Blood Count 8.7 X10*3/uL (4.8-10.8)
[2022-10-16 05:09] LABS: Anion Gap 12 (12-20); Blood Urea Nitrogen 11 mg/dL (9-16); Calcium 9.6 mg/dL (8.4-10.2); Carbon Dioxide 26 mmol/L (22-29); Chloride 106 mmol/L (96-108); Creatinine Clr Calc Pharmacy 118.5; Estimated Glomerular Filt Rate > 60; Glucose Random 102 mg/dL (60-115); Sodium 140 mmol/L (135-145)
[2022-10-16 08:00] VITALS: BP 172/89; PULSE 63; RESP 18; TEMP 36.6; O2SAT 94
[2022-10-16] MEDS: Enoxaparin Sodium 40 MG/0.4 ML SYRINGE SUBCUT (09:06)
[2022-10-16] MEDS: Ascorbic Acid 500 MG TABLET 1000 MG PO (09:07)
[2022-10-16] MEDS: hydrALAZINE HCl 50 MG TABLET PO ×2 (09:07→16:59)
[2022-10-16] MEDS: Acetaminophen 325 MG TABLET 650 MG PO ×2 (09:07→16:59)
[2022-10-16] MEDS: Cholecalciferol (Vitamin D3) 25 MCG TABLET PO (09:07)
[2022-10-16] MEDS: Ammonium Lactate 12 % Lotion 226 GM BOTTLE 1 APPL TOPICAL ×2 (09:08→21:18)
[2022-10-16] MEDS: Morphine Sulfate 4 MG/ML CARTRIDGE IVPUSH ×2 (09:08→17:02)
[2022-10-16] MEDS: Betamethasone Dip Aug 0.05% Cr 15 GM TUBE 1 APPL TOPICAL ×2 (09:08→21:18)
[2022-10-16] MEDS: amLODIPine Besylate 5 MG TABLET PO (11:18)
[2022-10-16] MEDS: Clindamycin Phosphate/D5W 600 MG/50 ML PIGGYBACK 100 MG IV ×2 (11:19→18:30)
--- NOTE | 2022-10-16 11:29 | HO.PM.IMPN ---
Subjective Subjective Date of Service: 10/16/22 Interval History: Seen and evaluated this morning still has LLE pain and erythema with pain with improvement in symptoms overall No fever or chills no other overnight events reported Review of Systems No fever or chills or weakness No chest pain, palpitation No shortness of breath or coughing No abdominal pain, nausea or vomiting No urinary symptoms LLE rash, erythema improving Physical Exam Vital Signs: Vital Signs: Last Vital Signs Temp 97.9 F 10/16/22 08:00 Pulse 63 10/16/22 08:00 Resp 18 10/16/22 08:00 BP 172/89 H 10/16/22 08:00 Pulse Ox 94 10/16/22 08:00 O2 Del Method Room Air 10/16/22 08:00 BMI result Body Mass Index 39.1 Const: Other: Constitutional : Awake, interactive, not in distress Neck : Normal inspection, Supple Cardiovascular : RRR, no JVP, no lower extremity edema Respiratory : good bilateral air entry, no crackles, wheezes or rhonchi Gastrointestinal: soft, lax, Normal bowel sounds, Non tender Skin : Warm, Dry, Knee to ankle dorsal LLE erythema and tenderness with warmth much better, dry plaque of psoriasis on knee, normal ROM Neurological : Alert & oriented x3, No focal deficit Objective Data Active Medications Acetaminophen (Acetaminophen 325 Mg Tablet) 650 mg PO Q6H PRN PRN Reason: Pain, Mild (Pain Scale 1-3) Last Admin: 10/16/22 09:07 Dose: 650 mg Documented By: JUDI Amlodipine Besylate (Amlodipine Besylate 5 Mg Tablet) 5 mg PO DAILY [facility]; Protocol Last Admin: 10/16/22 11:18 Dose: 5 mg Documented By: JUDI Ascorbic Acid (Ascorbic Acid 500 Mg Tablet) 1,000 mg PO DAILY [facility] Last Admin: 10/16/22 09:07 Dose: 1,000 mg Documented By: JUDI Betamethasone Dipropion Augmented (Betamethasone Dip Aug 0.05% Cr 15 Gm Tube) 1 appl TOPICAL BID [facility]; Protocol Last Admin: 10/16/22 09:08 Dose: 1 appl Documented By: JUDI Enoxaparin Sodium (Enoxaparin Sodium 40 Mg/0.4 Ml Syringe) 40 mg SUBCUT Q24H [facility] Last Admin: 10/16/22 09:06 Dose: 40 mg Documented By: JUDI Hydralazine HCl (Hydralazine Hcl 50 Mg Tablet) 50 mg PO BIDWM [facility]; Protocol Last Admin: 10/16/22 09:07 Dose: 50 mg Documented By: JUDI Vancomycin HCl 1,250 mg/ (Sodium Chloride) 250 mls @ 166.667 mls/hr IV Q8H [facility] Stop: 10/17/22 08:00 Last Infusion: 10/16/22 11:28 Dose: 0 mls/hr Documented By: JUDI Clindamycin Phosphate (Cleocin) 600 mg in 50 mls @ 100 mls/hr IV Q8H [facility] Last Admin: 10/16/22 11:19 Dose: 100 mls/hr Documented By: JUDI Lactic Acid (Ammonium Lactate 12 % Lotion 226 Gm Bottle) 1 appl TOPICAL BID [facility]; Protocol Last Admin: 10/16/22 09:08 Dose: 1 appl Documented By: JUDI Morphine Sulfate (Morphine Sulfate 4 Mg/Ml Cartridge) 4 mg IVPUSH Q4H PRN; Protocol PRN Reason: Pain, Severe (Pain Scale 7-10) Last Admin: 10/16/22 09:08 Dose: 4 mg Documented By: JUDI Ondansetron HCl (Ondansetron Hcl 4 Mg/2 Ml Vial) 4 mg IVPUSH Q8H PRN PRN Reason: Nausea and Vomiting Pharmacy Consult (Consult Rx Perform Med Rec) 1 each MISCELLANE ONCE PRN PRN Reason: Consult order Pharmacy Consult (Consult Rx Vancomycin Dosing) 1 each MISCELLANE DAILY PRN PRN Reason: Consult order Sodium Chloride (0.9 % Sodium Chloride Flush 3 Ml Syringe) 3 ml IVFLUSH QSHIFT [facility] Last Admin: 10/16/22 07:45 Dose: Not Given Documented By: JUDI Non-Admin Reason: Previously Administered Vitamin D (Cholecalciferol (Vitamin D3) 25 Mcg Tablet) 25 mcg PO DAILY [facility] Last Admin: 10/16/22 09:07 Dose: 25 mcg Documented By: JUDI Labs 10/16/22 04:19 10/16/22 04:19 Labs: Laboratory Results - last 24 hr 10/15/22 10/16/22 10/16/22 15:00 04:19 04:19 MCV 83.9 MCH 28.9 MCHC 34.4 RDW 11.9 Plt Count 195 MPV 9.7 Absolute Nucleated RBC 0.000 Nucleated RBC % (auto) 0.0 Anion Gap 12 Estim Creat Clear Calc 118.5 Estimated GFR > 60 Random Glucose 102 Calcium 9.6 Random Vancomycin 11.6 L Microbiology Microbiology Results: Microbiology 10/13/22 07:55 Blood Culture - Preliminary Blood - Venous No growth after 48 hours. 10/13/22 07:55 Blood Culture - Preliminary Blood - Venous No growth after 48 hours. Assessment and Plan (1) Sepsis: Status: Acute (2) Cellulitis of left leg: Status: Acute (3) Acute renal failure: Status: Acute Plan A 57 years old male with PMH of psoriasis who presents to the hospital complaining of LLE erythema and pain for 1 day [employer]. Sepsis 2/2 LLE cellulitis negative cultures DC Abx of Vanco and Zosyn Start Clindamycin ammonia lotion for dry skin low vanco trough, dose adjusted acute Lactic acidosis, resolved 2/2 sepsis resolved with IVF HELEN seems dehydration related resolved follow with BMP Hypokalemia replaced follow BMP HTN Continue hydralazine DVT PPx Lovenox The patient will likely need overnight hospital stay for treatment of sepsis 2/2 cellulitis needs IV antibiotics Time Spent With Patient Time: Total time managing care of this patient today ____ minutes. Quality Stroke Does the patient have a stroke diagnosis?: No VTE Prior VTE?: No VTE Risk Level:: Medical - moderate - high VTE Device Contraindication: Treatment Not Indicated VTE Drug Contraindication: N/A - Med Ordered
[2022-10-16 15:54] VITALS: BP 161/83; PULSE 75; RESP 16; TEMP 36.8; O2SAT 92
--- NOTE | 2022-10-16 16:36 | HE.PHANOTE ---
Vancomycin Dosing Level 15 today. Renal function stable. Continue current regimen. Vancomycin scheduled to stop 10/17/22 @ 0800. Next level 10/17 @ 1500 in case vancomycin is continued by provider so a level is not missed. Alice Kumar, PharmD
[2022-10-16] MEDS: 0.9 % Sodium Chloride Flush 3 ML SYRINGE IVFLUSH ×2 (17:00→21:18)
[2022-10-16 19:46] VITALS: BP 164/80; PULSE 70; RESP 18; TEMP 36.8; O2SAT 93
[2022-10-16] MEDS: Melatonin 3 MG TABLET 6 MG PO (23:33)
[2022-10-17] MEDS: vancomycin HCL 1,250 MG in 0.9 % Sodium Chloride 250 ML 166.67 MG IV (00:56)
[2022-10-17] MEDS: Clindamycin Phosphate/D5W 600 MG/50 ML PIGGYBACK 100 MG IV ×3 (02:42→17:52)
[2022-10-17] MEDS: Morphine Sulfate 4 MG/ML CARTRIDGE IVPUSH ×4 (03:12→21:20)
[2022-10-17 03:30] VITALS: BP 144/92; PULSE 66; RESP 18; TEMP 36.6; O2SAT 95
[2022-10-17 04:24] VITALS: RESP 18
[2022-10-17 06:24] LABS: Hematocrit 38.7 % (42.0-52.0); Hemoglobin 13.4 g/dl (14.0-18.0); Mean Corpuscular HGB Conc 34.6 g/dl (31.0-36.0); Mean Corpuscular Hemoglobin 29.3 pg (27.0-33.0); Mean Corpuscular Volume 84.7 fL (80.0-98.0); Mean Platelet Volume 9.7 fL (9.4-12.4); Platelet Count 214 X10*3/uL (160-400); Red Blood Count 4.57 X10*6/uL (4.60-5.80); Red Cell Distribution Width 11.8 % (11.0-16.0); White Blood Count 7.9 X10*3/uL (4.8-10.8)
[2022-10-17 06:51] LABS: Anion Gap 10 (12-20); Blood Urea Nitrogen 10 mg/dL (9-16); Calcium 9.6 mg/dL (8.4-10.2); Carbon Dioxide 27 mmol/L (22-29); Chloride 106 mmol/L (96-108); Estimated Glomerular Filt Rate > 60; Glucose Random 130 mg/dL (60-115); Sodium 139 mmol/L (135-145)
[2022-10-17 07:58] VITALS: BP 155/81; PULSE 65; RESP 18; TEMP 36.6; O2SAT 95
[2022-10-17] MEDS: Ascorbic Acid 500 MG TABLET 1000 MG PO (08:24)
[2022-10-17] MEDS: amLODIPine Besylate 5 MG TABLET PO (08:24)
[2022-10-17] MEDS: 0.9 % Sodium Chloride Flush 3 ML SYRINGE IVFLUSH (08:24)
[2022-10-17] MEDS: Cholecalciferol (Vitamin D3) 25 MCG TABLET PO (08:24)
[2022-10-17] MEDS: hydrALAZINE HCl 50 MG TABLET PO ×2 (08:24→16:40)
[2022-10-17] MEDS: Ammonium Lactate 12 % Lotion 226 GM BOTTLE 1 APPL TOPICAL ×2 (08:24→20:53)
[2022-10-17] MEDS: Betamethasone Dip Aug 0.05% Cr 15 GM TUBE 1 APPL TOPICAL ×2 (08:24→20:53)
[2022-10-17] MEDS: Enoxaparin Sodium 40 MG/0.4 ML SYRINGE SUBCUT (10:26)
--- NOTE | 2022-10-17 10:50 | HO.PM.IMPN ---
Subjective Subjective Date of Service: 10/17/22 Interval History: still with left leg pain, bilateral ue thrombophlebitis Physical Exam Vital Signs: Vital Signs: Last Vital Signs Temp 97.9 F 10/17/22 07:58 Pulse 65 10/17/22 07:58 Resp 18 10/17/22 07:58 BP 155/81 H 10/17/22 07:58 Pulse Ox 95 10/17/22 07:58 O2 Del Method Room Air 10/17/22 07:58 BMI result Body Mass Index 39.1 Const: Other: Constitutional : Awake, interactive, not in distress Neck : Normal inspection, Supple Cardiovascular : RRR, no JVP, no lower extremity edema Respiratory : good bilateral air entry, no crackles, wheezes or rhonchi Gastrointestinal: soft, lax, Normal bowel sounds, Non tender Skin : Warm, Dry, Knee to ankle dorsal LLE erythema and tenderness with warmth much better, dry plaque of psoriasis on knee, normal ROM bilateral ue thrombophlebitis Neurological : Alert & oriented x3, No focal deficit Objective Data Active Medications Acetaminophen (Acetaminophen 325 Mg Tablet) 650 mg PO Q6H PRN PRN Reason: Pain, Mild (Pain Scale 1-3) Last Admin: 10/16/22 16:59 Dose: 650 mg Documented By: JUDI Amlodipine Besylate (Amlodipine Besylate 5 Mg Tablet) 5 mg PO DAILY [facility]; Protocol Last Admin: 10/17/22 08:24 Dose: 5 mg Documented By: NELSON Ascorbic Acid (Ascorbic Acid 500 Mg Tablet) 1,000 mg PO DAILY [facility] Last Admin: 10/17/22 08:24 Dose: 1,000 mg Documented By: NELSON Betamethasone Dipropion Augmented (Betamethasone Dip Aug 0.05% Cr 15 Gm Tube) 1 appl TOPICAL BID [facility]; Protocol Last Admin: 10/17/22 08:24 Dose: 1 appl Documented By: NELSON Enoxaparin Sodium (Enoxaparin Sodium 40 Mg/0.4 Ml Syringe) 40 mg SUBCUT Q24H [facility] Last Admin: 10/17/22 10:26 Dose: 40 mg Documented By: NELSON Hydralazine HCl (Hydralazine Hcl 50 Mg Tablet) 50 mg PO BIDWM [facility]; Protocol Last Admin: 10/17/22 08:24 Dose: 50 mg Documented By: NELSON Clindamycin Phosphate (Cleocin) 600 mg in 50 mls @ 100 mls/hr IV Q8H [facility] Last Admin: 10/17/22 10:26 Dose: 100 mls/hr Documented By: NELSON Lactic Acid (Ammonium Lactate 12 % Lotion 226 Gm Bottle) 1 appl TOPICAL BID [facility]; Protocol Last Admin: 10/17/22 08:24 Dose: 1 appl Documented By: NELSON Melatonin (Melatonin 3 Mg Tablet) 6 mg PO BEDTIME PRN PRN Reason: Insomnia Last Admin: 10/16/22 23:33 Dose: 6 mg Documented By: OZORALB Morphine Sulfate (Morphine Sulfate 4 Mg/Ml Cartridge) 4 mg IVPUSH Q4H PRN; Protocol PRN Reason: Pain, Severe (Pain Scale 7-10) Last Admin: 10/17/22 10:26 Dose: 4 mg Documented By: NELSON Ondansetron HCl (Ondansetron Hcl 4 Mg/2 Ml Vial) 4 mg IVPUSH Q8H PRN PRN Reason: Nausea and Vomiting Pharmacy Consult (Consult Rx Perform Med Rec) 1 each MISCELLANE ONCE PRN PRN Reason: Consult order Pharmacy Consult (Consult Rx Vancomycin Dosing) 1 each MISCELLANE DAILY PRN PRN Reason: Consult order Sodium Chloride (0.9 % Sodium Chloride Flush 3 Ml Syringe) 3 ml IVFLUSH QSHIFT [facility] Last Admin: 10/17/22 08:24 Dose: 3 ml Documented By: NELSON Vitamin D (Cholecalciferol (Vitamin D3) 25 Mcg Tablet) 25 mcg PO DAILY [facility] Last Admin: 10/17/22 08:24 Dose: 25 mcg Documented By: NELSON Labs 10/17/22 06:03 10/17/22 06:03 Labs: Laboratory Results - last 24 hr 10/16/22 10/17/22 10/17/22 15:37 06:03 06:03 MCV 84.7 MCH 29.3 MCHC 34.6 RDW 11.8 Plt Count 214 MPV 9.7 Absolute Nucleated RBC 0.000 Nucleated RBC % (auto) 0.0 Anion Gap 10 L Estim Creat Clear Calc 117.0 Estimated GFR > 60 Random Glucose 130 H Calcium 9.6 Vancomycin Trough 15.0 10/17/22 06:03 MCV MCH MCHC RDW Plt Count MPV Absolute Nucleated RBC Nucleated RBC % (auto) Anion Gap Estim Creat Clear Calc Cancelled Estimated GFR Cancelled Random Glucose Calcium Vancomycin Trough Assessment and Plan (1) Sepsis: Status: Acute (2) Cellulitis of left leg: Status: Acute (3) Acute renal failure: Status: Acute Plan 57M PMH of psoriasis who presented to the hospital complaining of LLE erythema and 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 Sepsis 2/2 LLE cellulitis negative cultures DCed Abx of Vanco and Zosyn now on Clindamycin ammonia lotion for dry skin acute Lactic acidosis, resolved 2/2 sepsis resolved with IVF HELEN resolved Hypokalemia replaced HTN Continue hydralazine bilateral ue throbophlebitis check doppler DVT PPx Lovenox full code reason for continued hospitalization:still with significant pain, difficulty ambulating Time Spent With Patient Time: Total time managing care of this patient today ____ minutes. Quality Stroke Does the patient have a stroke diagnosis?: No VTE Prior VTE?: No VTE Risk Level:: Medical - moderate - high VTE Device Contraindication: Treatment Not Indicated VTE Drug Contraindication: N/A - Med Ordered
--- NOTE | 2022-10-17 11:57 | MHC.CLN ---
NUTRITION CONSULT FOR IMPAIRED SKIN INTEGRITY. LEFT LEG CELLULITIS. NO PRESSURE INJURIES. DIET=REGULAR. INTAKE USUALLY 75-100%. NO NEW NUTRITION INTERVENTIONS.
[2022-10-17 15:23] VITALS: BP 176/85; PULSE 69; RESP 20; TEMP 36.3; O2SAT 95
[2022-10-17 15:35] LABS: Vancomycin Trough 8.1 mcg/mL (10.0-20.0)
--- NOTE | 2022-10-17 16:14 | MHC.CM.PN ---
Per MD rounds no dc today r/t pain management. DP Home via private transport.
[2022-10-17 19:18] VITALS: BP 160/83; PULSE 70; RESP 20; TEMP 36.6; O2SAT 94
[2022-10-17] MEDS: Apixaban 5 MG TABLET 10 MG PO (20:53)
[2022-10-17] MEDS: Melatonin 3 MG TABLET 6 MG PO (21:21)
[2022-10-17 21:56] VITALS: PULSE 67; RESP 24; O2SAT 94
[2022-10-18 03:24] VITALS: BP 153/94; PULSE 61; RESP 14; TEMP 36.4; O2SAT 94
[2022-10-18] MEDS: Clindamycin Phosphate/D5W 600 MG/50 ML PIGGYBACK 100 MG IV ×3 (03:32→18:16)
[2022-10-18] MEDS: 0.9 % Sodium Chloride Flush 3 ML SYRINGE IVFLUSH ×3 (03:33→16:09)
--- NOTE | 2022-10-18 03:53 | PC.NURSE ---
Pt c/o heartburn, bloating and would like medication for it, MD notified. See new orders.
[2022-10-18] MEDS: Magnesium Hydrox/Alum Hydrox 30 ML ORAL.SUSP PO (04:35)
[2022-10-18 06:38] LABS: Hemoglobin 13.7 g/dl (14.0-18.0); Mean Corpuscular HGB Conc 34.3 g/dl (31.0-36.0); Mean Corpuscular Hemoglobin 28.6 pg (27.0-33.0); Mean Corpuscular Volume 83.5 fL (80.0-98.0); Mean Platelet Volume 9.6 fL (9.4-12.4); Platelet Count 231 X10*3/uL (160-400); Red Blood Count 4.79 X10*6/uL (4.60-5.80); Red Cell Distribution Width 11.8 % (11.0-16.0); White Blood Count 10.5 X10*3/uL (4.8-10.8)
[2022-10-18 06:57] LABS: Anion Gap 11 (12-20); Blood Urea Nitrogen 12 mg/dL (9-16); Calcium 9.6 mg/dL (8.4-10.2); Carbon Dioxide 26 mmol/L (22-29); Chloride 104 mmol/L (96-108); Creatinine Clr Calc Pharmacy 115.5; Estimated Glomerular Filt Rate > 60; Glucose Fasting 109 mg/dL (60-99); Potassium 4.2 mmol/L (3.3-5.1); Sodium 137 mmol/L (135-145)
[2022-10-18 07:40] VITALS: BP 160/84; PULSE 61; RESP 18; TEMP 36.6; O2SAT 94
[2022-10-18] MEDS: Apixaban 5 MG TABLET 10 MG PO ×2 (09:14→19:56)
[2022-10-18] MEDS: Omeprazole 40 MG CAPSULE.DR PO ×2 (09:14→18:16)
[2022-10-18] MEDS: Ascorbic Acid 500 MG TABLET 1000 MG PO (09:14)
[2022-10-18] MEDS: hydrALAZINE HCl 50 MG TABLET PO ×2 (09:15→16:08)
[2022-10-18] MEDS: amLODIPine Besylate 5 MG TABLET PO (09:15)
[2022-10-18] MEDS: Cholecalciferol (Vitamin D3) 25 MCG TABLET PO (09:15)
[2022-10-18] MEDS: Ammonium Lactate 12 % Lotion 226 GM BOTTLE 1 APPL TOPICAL ×2 (09:16→19:57)
[2022-10-18] MEDS: Betamethasone Dip Aug 0.05% Cr 15 GM TUBE 1 APPL TOPICAL ×2 (09:17→19:56)
[2022-10-18] MEDS: ondansetron HCL 4 MG/2 ML VIAL IVPUSH (09:25)
[2022-10-18] MEDS: Morphine Sulfate 4 MG/ML CARTRIDGE IVPUSH (09:25)
--- NOTE | 2022-10-18 10:25 | P.PNIM_ITS ---
Subjective Subjective Date of Service: 10/18/22 Interval History: abd pain Physical Exam Vital Signs: Vital Signs: Last Vital Signs Temp 97.9 F 10/18/22 07:40 Pulse 61 10/18/22 07:40 Resp 18 10/18/22 07:40 BP 160/84 H 10/18/22 07:40 Pulse Ox 94 10/18/22 07:40 O2 Del Method Room Air 10/18/22 07:40 BMI result Body Mass Index 39.1 Const: Other: Constitutional : Awake, interactive, not in distress Neck : Normal inspection, Supple Cardiovascular : RRR, no JVP, no lower extremity edema Respiratory : good bilateral air entry, no crackles, wheezes or rhonchi Gastrointestinal: soft, lax, Normal bowel sounds, Non tender Skin : Warm, Dry, Knee to ankle dorsal LLE erythema and tenderness with warmth much better, dry plaque of psoriasis on knee, normal ROM bilateral ue thrombophlebitis Neurological : Alert & oriented x3, No focal deficit Objective Data Active Medications Acetaminophen (Acetaminophen 325 Mg Tablet) 650 mg PO Q6H PRN PRN Reason: Pain, Mild (Pain Scale 1-3) Last Admin: 10/16/22 16:59 Dose: 650 mg Documented By: JUDI Amlodipine Besylate (Amlodipine Besylate 5 Mg Tablet) 5 mg PO DAILY [facility]; Protocol Last Admin: 10/18/22 09:15 Dose: 5 mg Documented By: ZAID Apixaban (Apixaban 5 Mg Tablet) 10 mg PO BID [facility] Stop: 10/24/22 09:01 Last Admin: 10/18/22 09:14 Dose: 10 mg Documented By: ZAID Ascorbic Acid (Ascorbic Acid 500 Mg Tablet) 1,000 mg PO DAILY [facility] Last Admin: 10/18/22 09:14 Dose: 1,000 mg Documented By: ZAID Betamethasone Dipropion Augmented (Betamethasone Dip Aug 0.05% Cr 15 Gm Tube) 1 appl TOPICAL BID [facility]; Protocol Last Admin: 10/18/22 09:17 Dose: 1 appl Documented By: ZAID Hydralazine HCl (Hydralazine Hcl 50 Mg Tablet) 50 mg PO BIDWM [facility]; Protocol Last Admin: 10/18/22 09:15 Dose: 50 mg Documented By: ZAID Clindamycin Phosphate (Cleocin) 600 mg in 50 mls @ 100 mls/hr IV Q8H [facility] Last Infusion: 10/18/22 04:37 Dose: 0 mls/hr Documented By: NIKOLAS Lactic Acid (Ammonium Lactate 12 % Lotion 226 Gm Bottle) 1 appl TOPICAL BID [facility]; Protocol Last Admin: 10/18/22 09:16 Dose: 1 appl Documented By: ZAID Melatonin (Melatonin 3 Mg Tablet) 6 mg PO BEDTIME PRN PRN Reason: Insomnia Last Admin: 10/17/22 21:21 Dose: 6 mg Documented By: NIKOLAS Morphine Sulfate (Morphine Sulfate 4 Mg/Ml Cartridge) 4 mg IVPUSH Q4H PRN; Protocol PRN Reason: Pain, Severe (Pain Scale 7-10) Last Admin: 10/18/22 09:25 Dose: 4 mg Documented By: ZAID Omeprazole (Omeprazole 40 Mg Capsule.Dr) 40 mg PO DAILY@0630 [facility] Last Admin: 10/18/22 09:14 Dose: 40 mg Documented By: ZAID Ondansetron HCl (Ondansetron Hcl 4 Mg/2 Ml Vial) 4 mg IVPUSH Q8H PRN PRN Reason: Nausea and Vomiting Last Admin: 10/18/22 09:25 Dose: 4 mg Documented By: ZAID Pharmacy Consult (Consult Rx Perform Med Rec) 1 each MISCELLANE ONCE PRN PRN Reason: Consult order Pharmacy Consult (Consult Rx Vancomycin Dosing) 1 each MISCELLANE DAILY PRN PRN Reason: Consult order Sodium Chloride (0.9 % Sodium Chloride Flush 3 Ml Syringe) 3 ml IVFLUSH QSHIFT [facility] Last Admin: 10/18/22 09:14 Dose: 3 ml Documented By: ZAID Vitamin D (Cholecalciferol (Vitamin D3) 25 Mcg Tablet) 25 mcg PO DAILY [facility] Last Admin: 10/18/22 09:15 Dose: 25 mcg Documented By: ZAID Labs 10/18/22 05:47 10/18/22 05:47 Labs: Laboratory Results - last 24 hr 10/17/22 10/18/22 10/18/22 15:09 05:47 05:47 MCV 83.5 MCH 28.6 MCHC 34.3 RDW 11.8 Plt Count 231 MPV 9.6 Absolute Nucleated RBC 0.000 Nucleated RBC % (auto) 0.0 Anion Gap Estim Creat Clear Calc Cancelled Estimated GFR Cancelled Fasting Glucose Calcium Vancomycin Trough 8.1 L 10/18/22 05:47 MCV MCH MCHC RDW Plt Count MPV Absolute Nucleated RBC Nucleated RBC % (auto) Anion Gap 11 L Estim Creat Clear Calc 115.5 Estimated GFR > 60 Fasting Glucose 109 H Calcium 9.6 Vancomycin Trough Microbiology Microbiology Results: Microbiology 10/13/22 07:55 Blood Culture - Final Blood - Venous No growth after 5 days. 10/13/22 07:55 Blood Culture - Final Blood - Venous No growth after 5 days. 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 2/2 LLE cellulitis negative cultures DCed Abx of Vanco and Zosyn now on Clindamycin ammonia lotion for dry skin follow up repeat doppler bilateral upper extremity acute DVT started eliquis 10mg bid 10/17/22, change to 5mg bid on 10/24/22 seems unprovoked, outpatient hematology eval acute Lactic acidosis, resolved 2/2 sepsis resolved with IVF HELEN resolved Hypokalemia replaced HTN Continue hydralazine bilateral ue throbophlebitis check doppler DVT PPx Lovenox full code reason for continued hospitalization:still with significant pain, difficulty ambulating Time Spent With Patient Time: Total time managing care of this patient today ____ minutes. Quality Stroke Does the patient have a stroke diagnosis?: No VTE Prior VTE?: No VTE Risk Level:: Medical - moderate - high VTE Device Contraindication: Treatment Not Indicated VTE Drug Contraindication: N/A - Med Ordered
[2022-10-18 15:54] VITALS: BP 171/89; PULSE 63; RESP 18; TEMP 36.9; O2SAT 95
[2022-10-18] MEDS: Acetaminophen 325 MG TABLET 650 MG PO (16:08)
--- NOTE | 2022-10-18 17:10 | PC.NURSE ---
Addendum entered by Karey Osorio RN 10/18/22 19:09: BP recheck at 1718, 173/89, pt continue to c/o abd pain, MD Norton aware, orders for 1x dose of omeprazole 40mg PO given. Original Note: MD Norton notified at 1608 via tiger text of 12/17 abd pain, chills , and a BP of 171/89. Pt was given PRN tylenol and scheduled Hydralazie given.
[2022-10-18 17:18] VITALS: BP 173/89
[2022-10-18 20:00] VITALS: BP 146/82; PULSE 70; RESP 18; TEMP 36.5; O2SAT 96
[2022-10-18] MEDS: traMADoL HCL 50 MG TABLET PO (20:09)
--- NOTE | 2022-10-18 20:12 | PC.NURSE ---
Addendum entered by Shantell Smith RN 10/18/22 23:45: Pt had received tramadol analisa w no effect and continued to c/o abdominal pain, visibly uncomfortable and was requesting pain meds. MD Moyer notified and ordered morphine. Pt given morphine w/ good effect. Original Note: Pt c/o abdominal pain and pain in legs. His blood pressure is also elevated, 170s-180s. MD Moyer notified, see new orders.
[2022-10-18] MEDS: Morphine Sulfate 2 MG/ML CARTRIDGE IVPUSH (22:25)
[2022-10-18] MEDS: Melatonin 3 MG TABLET 6 MG PO (23:34)
--- NOTE | 2022-10-19 00:34 | PC.RT ---
Patient refuses CPAP tonight due to pain that is not well controlled this shift. He will call if he wants to put CPAP on as patient is usually compliant with this device. RN is aware and will also evaluate and notify this therapist if patient is willing.
[2022-10-19] MEDS: Clindamycin Phosphate/D5W 600 MG/50 ML PIGGYBACK 100 MG IV ×3 (02:04→19:52)
[2022-10-19 03:15] VITALS: BP 144/76; PULSE 76; RESP 18; TEMP 36.3; O2SAT 96
[2022-10-19] MEDS: Omeprazole 40 MG CAPSULE.DR PO (05:24)
[2022-10-19 06:15] LABS: Hemoglobin 13.8 g/dl (14.0-18.0); Mean Corpuscular HGB Conc 33.7 g/dl (31.0-36.0); Mean Corpuscular Hemoglobin 28.9 pg (27.0-33.0); Mean Corpuscular Volume 85.8 fL (80.0-98.0); Mean Platelet Volume 9.4 fL (9.4-12.4); Platelet Count 229 X10*3/uL (160-400); Red Blood Count 4.78 X10*6/uL (4.60-5.80); Red Cell Distribution Width 11.8 % (11.0-16.0); White Blood Count 10.8 X10*3/uL (4.8-10.8)
[2022-10-19 06:31] LABS: Anion Gap 14 (12-20); Blood Urea Nitrogen 12 mg/dL (9-16); Calcium 9.5 mg/dL (8.4-10.2); Carbon Dioxide 23 mmol/L (22-29); Chloride 102 mmol/L (96-108); Estimated Glomerular Filt Rate > 60; Glucose Fasting 107 mg/dL (60-99); Potassium 4.3 mmol/L (3.3-5.1); Sodium 135 mmol/L (135-145)
[2022-10-19 07:16] VITALS: BP 141/81; PULSE 62; RESP 18; TEMP 37; O2SAT 95
[2022-10-19] MEDS: hydrALAZINE HCl 50 MG TABLET PO ×2 (07:48→16:37)
[2022-10-19] MEDS: Ascorbic Acid 500 MG TABLET 1000 MG PO (07:48)
[2022-10-19] MEDS: 0.9 % Sodium Chloride Flush 3 ML SYRINGE IVFLUSH ×3 (07:48→23:57)
[2022-10-19] MEDS: Apixaban 5 MG TABLET 10 MG PO ×2 (07:48→19:58)
[2022-10-19] MEDS: Cholecalciferol (Vitamin D3) 25 MCG TABLET PO (07:48)
[2022-10-19] MEDS: amLODIPine Besylate 5 MG TABLET PO (07:48)
[2022-10-19] MEDS: Ammonium Lactate 12 % Lotion 226 GM BOTTLE 1 APPL TOPICAL ×2 (08:16→19:58)
[2022-10-19] MEDS: Betamethasone Dip Aug 0.05% Cr 15 GM TUBE 1 APPL TOPICAL ×2 (08:17→19:59)
--- NOTE | 2022-10-19 09:00 | P.PNIM_ITS ---
Subjective Subjective Date of Service: 10/19/22 Interval History: abd pain, diarrhea Physical Exam Vital Signs: Vital Signs: Last Vital Signs Temp 98.6 F 10/19/22 07:16 Pulse 62 10/19/22 07:16 Resp 18 10/19/22 07:16 BP 141/81 H 10/19/22 07:16 Pulse Ox 95 10/19/22 07:16 O2 Del Method Room Air 10/19/22 07:16 BMI result Body Mass Index 39.1 Const: Other: Constitutional : Awake, interactive, not in distress Neck : Normal inspection, Supple Cardiovascular : RRR, no JVP, no lower extremity edema Respiratory : good bilateral air entry, no crackles, wheezes or rhonchi Gastrointestinal: soft, lax, Normal bowel sounds, Non tender Skin : Warm, Dry, Knee to ankle dorsal LLE erythema and tenderness with warmth much better, dry plaque of psoriasis on knee, normal ROM bilateral ue thrombophlebitis Neurological : Alert & oriented x3, No focal deficit Objective Data Active Medications Acetaminophen (Acetaminophen 325 Mg Tablet) 650 mg PO Q6H PRN PRN Reason: Pain, Mild (Pain Scale 1-3) Last Admin: 10/18/22 16:08 Dose: 650 mg Documented By: ZAID Amlodipine Besylate (Amlodipine Besylate 5 Mg Tablet) 5 mg PO DAILY [facility]; Geraldo col Last Admin: 10/19/22 07:48 Dose: 5 mg Documented By: ZAID Apixaban (Apixaban 5 Mg Tablet) 10 mg PO BID [facility] Stop: 10/24/22 09:01 Last Admin: 10/19/22 07:48 Dose: 10 mg Documented By: ZAID Ascorbic Acid (Ascorbic Acid 500 Mg Tablet) 1,000 mg PO DAILY [facility] Last Admin: 10/19/22 07:48 Dose: 1,000 mg Documented By: ZAID Betamethasone Dipropion Augmented (Betamethasone Dip Aug 0.05% Cr 15 Gm Tube) 1 appl TOPICAL BID [facility]; Protocol Last Admin: 10/19/22 08:17 Dose: 1 appl Documented By: ZAID Hydralazine HCl (Hydralazine Hcl 50 Mg Tablet) 50 mg PO BIDWM [facility]; Protocol Last Admin: 10/19/22 07:48 Dose: 50 mg Documented By: ZAID Clindamycin Phosphate (Cleocin) 600 mg in 50 mls @ 100 mls/hr IV Q8H [facility] Last Infusion: 10/19/22 03:24 Dose: 0 mls/hr Documented By: NIKOLAS Lactic Acid (Ammonium Lactate 12 % Lotion 226 Gm Bottle) 1 appl TOPICAL BID [facility]; Protocol Last Admin: 10/19/22 08:16 Dose: 1 appl Documented By: ZAID Melatonin (Melatonin 3 Mg Tablet) 6 mg PO BEDTIME PRN PRN Reason: Insomnia Last Admin: 10/18/22 23:34 Dose: 6 mg Documented By: NIKOLAS Morphine Sulfate (Morphine Sulfate 2 Mg/Ml Cartridge) 2 mg IVPUSH Q4H [facility]; Protocol PRN Reason: moderate pain Omeprazole (Omeprazole 40 Mg Capsule.Dr) 40 mg PO DAILY@0630 [facility] Last Admin: 10/19/22 05:24 Dose: 40 mg Documented By: NIKOLAS Ondansetron HCl (Ondansetron Hcl 4 Mg/2 Ml Vial) 4 mg IVPUSH Q8H PRN PRN Reason: Nausea and Vomiting Last Admin: 10/18/22 09:25 Dose: 4 mg Documented By: ZAID Pharmacy Consult (Consult Rx Perform Med Rec) 1 each MISCELLANE ONCE PRN PRN Reason: Consult order Pharmacy Consult (Consult Rx Vancomycin Dosing) 1 each MISCELLANE DAILY PRN PRN Reason: Consult order Sodium Chloride (0.9 % Sodium Chloride Flush 3 Ml Syringe) 3 ml IVFLUSH QSHIFT [facility] Last Admin: 10/19/22 07:48 Dose: 3 ml Documented By: ZAID Vitamin D (Cholecalciferol (Vitamin D3) 25 Mcg Tablet) 25 mcg PO DAILY [facility] Last Admin: 10/19/22 07:48 Dose: 25 mcg Documented By: ZAID Labs 10/19/22 05:53 10/19/22 05:53 Labs: Laboratory Results - last 24 hr 10/19/22 10/19/22 10/19/22 05:53 05:53 05:53 MCV 85.8 MCH 28.9 MCHC 33.7 RDW 11.8 Plt Count 229 MPV 9.4 Absolute Nucleated RBC 0.000 Nucleated RBC % (auto) 0.0 Anion Gap 14 Estim Creat Clear Calc Cancelled 117.0 Estimated GFR Cancelled > 60 Fasting Glucose 107 H Calcium 9.5 Microbiology Microbiology Results: Microbiology 10/13/22 07:55 Blood Culture - Final Blood - Venous No growth after 5 days. 10/13/22 07:55 Blood Culture - Final Blood - Venous No growth after 5 days. 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 2/2 LLE cellulitis negative cultures now on Clindamycin ammonia lotion for dry skin repeat doppler negative improving abd pain, diarrhea follow up stool studies, ct abd bilateral upper extremity acute DVT started eliquis 10mg bid 10/17/22, change to 5mg bid on 10/24/22 seems unprovoked, outpatient hematology eval acute Lactic acidosis, resolved 2/2 sepsis resolved with IVF HELEN resolved Hypokalemia replaced HTN Continue hydralazine full code reason for continued hospitalization:still with significant pain, diarrhea Time Spent With Patient Time: Total time managing care of this patient today ____ minutes. Quality Stroke Does the patient have a stroke diagnosis?: No VTE Prior VTE?: No VTE Risk Level:: Medical - moderate - high VTE Device Contraindication: Treatment Not Indicated VTE Drug Contraindication: N/A - Med Ordered
[2022-10-19] MEDS: Morphine Sulfate 2 MG/ML CARTRIDGE IVPUSH ×4 (09:30→23:45)
[2022-10-19 10:13] LABS: CDiff Gene PCR NEGATIVE (Negative)
[2022-10-19 11:58] LABS: Campylobacter Not Detected (Not Detect.); Plesiomonas shigelloides Not Detected (Not Detect.); Salmonella Not Detected (Not Detect.)
[2022-10-19 11:59] LABS: Adenovirus F 40/41 Not Detected (Not Detect.); Astrovirus Not Detected (Not Detect.); Cryptosporidium Not Detected (Not Detect.); Cyclospora cayetanensis Not Detected (Not Detect.); E. coli EAEC Not Detected (Not Detect.); E. coli EPEC Not Detected (Not Detect.); E. coli ETEC Not Detected (Not Detect.); E. coli STEC Not Detected (Not Detect.); Entamoeba histolytica Not Detected (Not Detect.); Giardia lamblia Not Detected (Not Detect.); Norovirus GI/GII Not Detected (Not Detect.); Rotavirus A Not Detected (Not Detect.); Sapovirus Not Detected (Not Detect.); Shigella sp./EIEC Not Detected (Not Detect.); Vibrio Not Detected (Not Detect.); Vibrio Cholerae Not Detected (Not Detect.); Yersinia enterocolitica Not Detected (Not Detect.)
--- NOTE | 2022-10-19 13:32 | MHC.CM.PN ---
Per MD rounds no discharge today. Patient continue with abdominal pain and diarrhea. DP Home self care patient will arrange for a transport.
[2022-10-19 15:30] VITALS: BP 166/80; PULSE 62; RESP 18; TEMP 36.8; O2SAT 94
[2022-10-19 19:22] VITALS: BP 138/85; PULSE 66; RESP 18; TEMP 36.7; O2SAT 97
--- NOTE | 2022-10-19 23:15 | PC.RT ---
pt refusing CPAP at this time due to stomach pain; RN aware
[2022-10-19] MEDS: Melatonin 3 MG TABLET 6 MG PO (23:46)
[2022-10-19 23:55] VITALS: BP 168/90; PULSE 68
[2022-10-20 00:48] VITALS: RESP 18
[2022-10-20 03:36] VITALS: BP 139/81; PULSE 60; RESP 18; TEMP 36.6; O2SAT 95
[2022-10-20] MEDS: Clindamycin Phosphate/D5W 600 MG/50 ML PIGGYBACK 100 MG IV ×2 (04:18→10:56)
[2022-10-20] MEDS: Omeprazole 40 MG CAPSULE.DR PO (05:42)
[2022-10-20 06:27] LABS: Hematocrit 40.2 % (42.0-52.0); Hemoglobin 13.9 g/dl (14.0-18.0); Mean Corpuscular HGB Conc 34.6 g/dl (31.0-36.0); Mean Corpuscular Hemoglobin 28.5 pg (27.0-33.0); Mean Corpuscular Volume 82.5 fL (80.0-98.0); Mean Platelet Volume 9.4 fL (9.4-12.4); Platelet Count 238 X10*3/uL (160-400); Red Blood Count 4.87 X10*6/uL (4.60-5.80); Red Cell Distribution Width 11.8 % (11.0-16.0)
[2022-10-20 06:41] LABS: Anion Gap 12 (12-20); Blood Urea Nitrogen 10 mg/dL (9-16); Calcium 9.5 mg/dL (8.4-10.2); Carbon Dioxide 26 mmol/L (22-29); Chloride 102 mmol/L (96-108); Creatinine Clr Calc Pharmacy 111.3; Estimated Glomerular Filt Rate > 60; Glucose Fasting 117 mg/dL (60-99); Potassium 4.3 mmol/L (3.3-5.1); Sodium 136 mmol/L (135-145)
[2022-10-20 07:19] VITALS: BP 140/72; PULSE 61; RESP 18; TEMP 36.8; O2SAT 95
[2022-10-20] MEDS: 0.9 % Sodium Chloride Flush 3 ML SYRINGE IVFLUSH (07:32)
[2022-10-20] MEDS: amLODIPine Besylate 5 MG TABLET PO (07:33)
[2022-10-20] MEDS: hydrALAZINE HCl 50 MG TABLET PO (07:33)
[2022-10-20] MEDS: Cholecalciferol (Vitamin D3) 25 MCG TABLET PO (07:33)
[2022-10-20] MEDS: Apixaban 5 MG TABLET 10 MG PO (07:34)
[2022-10-20] MEDS: Ascorbic Acid 500 MG TABLET 1000 MG PO (07:34)
[2022-10-20] MEDS: Ammonium Lactate 12 % Lotion 226 GM BOTTLE 1 APPL TOPICAL (07:38)
[2022-10-20] MEDS: Betamethasone Dip Aug 0.05% Cr 15 GM TUBE 1 APPL TOPICAL (07:38)
--- NOTE | 2022-10-20 08:45 | PM.DS ---
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 the patient reports that he went for dinner on and started feeling sick to his stomach after that with nausea, vomiting and diarrhea which has improved since but noticed Saturday morning LLE swelling and pain associated with chills and feeling unwell. No headache, chest pain, palpitations, SOB, urinary symptoms. In ED found to have elevated WBCs, tachycardia and elevated LA. admitted for treatment of LLE cellulitis. hospital course: patient was admitted for sepsis due to LLE cellulitis was treated with vancomycin, then transistioned to clinda, due to diarrhea/abdominal pain (cdif negative) will change to doxy po on discharge for 7 more days. erythema and pain has significantly improved, LLE doppler negative twice for dvt. patient did have bilateral upper extremity swelling was started on eliquis, unclear if considered provoked or not, will defer duration of treatment to outpatient eval. patient presented with shaquille, resolved. had hypokalemia which was replaced. hypertension treated with hydralazine. patient feeling better, will be discharged home. Time Spent with Patient Time attestation: Total time managing care of this patient today ____ minutes. Discharge coordination time: Greater than 30 minutes Quality: Safe Use of Opioids Does Pt have an Active Cancer Diagnosis on the Problem List?: No Quality: Stroke Does the patient have a stroke diagnosis?: No Physical Exam Vital Signs: Vital Signs: Last Vital Signs Temp 98.2 F 10/20/22 07:19 Pulse 61 10/20/22 07:19 Resp 18 10/20/22 07:19 BP 140/72 H 10/20/22 07:19 Pulse Ox 95 10/20/22 07:19 O2 Del Method Room Air 10/20/22 07:19 BMI result Body Mass Index 39.1 General: AO X 3, no acute distress Resp: CTA bilateral, no accessory muscles used CVS: S1,S2,RRR GI: soft, non tender, non distended Neuro: motor grossly intact, alert Psych: appropriate affect, appropriate insight DS: Data Data Completed and Pending Labs on day of discharge: Laboratory Results - last 24 hr 10/19/22 10/19/22 10/20/22 07:37 07:37 05:42 WBC 10.0 RBC 4.87 Hgb 13.9 L Hct 40.2 L MCV 82.5 MCH 28.5 MCHC 34.6 RDW 11.8 Plt Count 238 MPV 9.4 Absolute Nucleated RBC 0.000 Nucleated RBC % (auto) 0.0 Sodium Potassium Chloride Carbon Dioxide Anion Gap BUN Creatinine Estim Creat Clear Calc Estimated GFR Fasting Glucose Calcium Stl C. cayetanensis PCR Not Detected Stool Rotavirus A PCR Not Detected Stl Adenov F 40/41 PCR Not Detected Stool Astrovirus (PCR) Not Detected Stool Campylobacter PCR Not Detected Stool Cryptosporidium PCR Not Detected Stl Sh Tox Pr E STEC PCR Not Detected Stool E coli O157 PCR Not applicable Stl Enterotoxigenic E PCR Not Detected Stool EPEC (PCR) Not Detected Stool EAEC (PCR) Not Detected Stl E. histolytica PCR Not Detected Stool Giardia Lamblia PCR Not Detected Stl P. shigelloides PCR Not Detected Stool Salmonella PCR Not Detected Stool Sapovirus (PCR) Not Detected Stl Shigella/EIEC PCR Not Detected St Y.enterocolitica PCR Not Detected Stool Vibrio (PCR) Not Detected Stl Vibrio cholerae PCR Not Detected Stl Norovirus GI/GII PCR Not Detected C. difficile Tox B Gene NEGATIVE 10/20/22 05:42 WBC RBC Hgb Hct MCV MCH MCHC RDW Plt Count MPV Absolute Nucleated RBC Nucleated RBC % (auto) Sodium 136 Potassium 4.3 Chloride 102 Carbon Dioxide 26 Anion Gap 12 BUN 10 Creatinine 0.83 Estim Creat Clear Calc 111.3 Estimated GFR > 60 Fasting Glucose 117 H Calcium 9.5 Stl C. cayetanensis PCR Stool Rotavirus A PCR Stl Adenov F 40/41 PCR Stool Astrovirus (PCR) Stool Campylobacter PCR Stool Cryptosporidium PCR Stl Sh Tox Pr E STEC PCR Stool E coli O157 PCR Stl Enterotoxigenic E PCR Stool EPEC (PCR) Stool EAEC (PCR) Stl E. histolytica PCR Stool Giardia Lamblia PCR Stl P. shigelloides PCR Stool Salmonella PCR Stool Sapovirus (PCR) Stl Shigella/EIEC PCR St Y.enterocolitica PCR Stool Vibrio (PCR) Stl Vibrio cholerae PCR Stl Norovirus GI/GII PCR C. difficile Tox B Gene Discharge Plan Discharge Anticipated Discharge Date/Time: 10/20/22 08:41 Patient Disposition: Home, Self-Care Discharge Diagnosis: dvt, cellulitis Referrals: Physician,Unknown J [Primary Care Provider] - 1 Week Discharge Medications: New Eliquis 5 mg Tablet 10 mg PO BID 30 Days Qty: 120 0RF Rx Instructions: 4 more days of 10mg bid, then decrease to 5mg bid doxycycline hyclate 100 mg tablet 100 mg PO BID Qty: 14 0RF omeprazole 40 mg Capsule,Delayed Release(Dr/Ec) 40 mg PO DAILY@0630 Qty: 30 0RF Continued ascorbic acid (vitamin C) [Vitamin C] 1,000 mg Tablet 1,000 mg PO DAILY losartan-hydrochlorothiazide [Hyzaar] 100-25 mg Tablet 1 tab PO DAILY hydralazine 50 mg Tablet 50 mg PO BIDWM cholecalciferol (vitamin D3) [Vitamin D3] 25 mcg (1,000 unit) Tablet 25 mcg PO DAILY Discharge Orders: Discharge Order (Routine); Ordered 10/20/22 Ordered By: Dino Norton Diet: Advance to usual diet Activity on Discharge: As tolerated Stand Alone Forms: Patient Portal Discharge page Care Plan Goals: recovery Health Concerns: dvt, cellulitis Plan of Treatment: 7 more days doxy, 4 more days of eliquis 10mg bid, then decrease to 5mg bid, atleast 3 months, follow up pcp/hematology to determine exact duration Assessment: see above
--- NOTE | 2022-10-20 10:22 | MHC.CM.PN ---
PT WILL DC HOME TODAY WITH NO SERVICES VIA PRIVATE TRANSPORT
== END 2022-10-20 14:25 | disposition home or self-care (01) | DRG 872 ==
LOC: HO.ED 09:00 → HO.EDOVER 10:41 → HO.S3 18:05
PROVIDERS: Admitting Provider Student in an Organized Health Care Education/Training Program; Emergency Provider Emergency Medicine; Visit Provider Internal Medicine
DX: A41.9 Sepsis, unspecified organism (principal); L03.116 Cellulitis of left lower limb; N17.9 Acute kidney failure, unspecified; E87.21 Acute metabolic acidosis; I82.613 Acute embolism and thrombosis of superficial veins of upper extremity, bilateral; E66.9 Obesity, unspecified; Z68.39 Body mass index [BMI] 39.0-39.9, adult; E86.0 Dehydration; I10 Essential (primary) hypertension; E87.6 Hypokalemia; Z79.899 Other long term (current) drug therapy
CPT/HCPCS: 36415; 73700; 74176; 80048; 80053; 80202; 81001; 82565; 83036; 83605; 84300; 85025; 85027; 87040; 87493; 87507; 93970; 93971; 94660; 99285; J0692; J1170; J1650; J2270; J2405; J2543; J3370; J3371

== ENCOUNTER 2022-10-20 18:58 | Emergency (ER) | payer MEDICARE, SELFPAY ==
[2022-10-20 19:14] VITALS: BP 176/96; PULSE 92; RESP 18; TEMP 36.9; O2SAT 96; BMI 35.5
--- NOTE | 2022-10-20 19:23 | ED.GENADULT ---
HPI - General Adult General Chief complaint: General Medical Stated complaint: Infection leg/ Re-visit Time Seen by Provider: 10/20/22 20:01 Source: patient Mode of arrival: ambulatory Limitations: no limitations History of Present Illness HPI narrative: Patient with history psoriasis with left leg cellulitis just discharged today at 14:00 comes back as having the pain in the back and blood pressure was elevated patient admitted here on 10/13 stayed here for 7 days discharged on p.o. antibiotics had a CBC done today which was normal no fever no chills patient was worried about the blood pressure as many check blood pressure was 176/80 on arrival blood pressure was 176/96 repeat blood pressure was 146/80. Related Data Home Medications Medication Instructions Recorded Confirmed ascorbic acid (vitamin C) 1,000 mg 1,000 mg PO DAILY 10/13/22 10/13/22 tablet (Vitamin C) cholecalciferol (vitamin D3) 25 25 mcg PO DAILY 10/13/22 10/13/22 mcg (1,000 unit) tablet (Vitamin D3) hydralazine 50 mg tablet 50 mg PO BIDWM 10/13/22 10/13/22 losartan 100 1 tab PO DAILY 10/13/22 10/13/22 mg-hydrochlorothiazide 25 mg tablet (Hyzaar) Previous Rx's Medication Instructions Recorded apixaban 5 mg tablet (Eliquis) 10 mg PO BID 30 days #120 tabs 10/20/22 doxycycline hyclate 100 mg tablet 100 mg PO BID #14 tabs 10/20/22 omeprazole 40 mg capsule,delayed 40 mg PO DAILY@0630 #30 caps 10/20/22 release tramadol 50 mg tablet 50 mg PO Q6H PRN pain #20 tabs 10/20/22 Allergies Allergy/AdvReac Type Severity Reaction Status Date / Time No Known Allergies Allergy Verified 10/20/22 19:20 Review of Systems Review of Systems: Yes all other systems are reviewed and are negative PMFSH Past Medical History Medical History Psoriasis Social History Social History Household Members: Family Housing: Apartment Alcohol intake: never Patient Tobacco Use Status: Never used Tobacco Smoked in Last 30 Days: No Use of substances other than those prescribed or required for medical reasons: No Advance Directives: No Advance Directives Information Provided: Yes service: No Current occupational status: unemployed Physical Exam ED Vital Signs: Vital Signs - 24 hr 10/20/22 19:14 10/20/22 20:30 Temperature 98.4 F Pulse Rate 92 Respiratory Rate 18 Blood Pressure 176/96 H 146/80 H Pulse Oximetry 96 Oxygen Delivery Method Room Air BMI result Body Mass Index 35.5 Appearance: Alert. Oriented X3. No acute distress. ENT: Pharynx normal. Oral Mucosa moist Neck: Normal inspection. Neck supple. CVS: Normal heart rate and rhythm. Pulses normal. Respiratory: No respiratory distress. Equal air entry bilateral, no wheezing/rales/rhonchi Abdomen: Soft and nontender. Bowel sounds are present, no mass palpable, no CVA tenderness Skin: Skin warm and dry. Normal skin color. Normal skin turgor. Extremities: No lower extremity edema. No calf tenderness slight redness of the left leg Neuro: Oriented X 3. Course Course Course Narrative: 57 year old male presents for evaluation of left leg pain and back pain. Patient was admitted from 10/13/2022 until 2:00 p.m. today for left leg cellulitis. He states since being discharged she now has lower back pain and is concerned is a kidney infection because ?is difficult to pee. ? he denies any burning with urination. He remains on doxycycline twice daily for his cellulitis for additional 7 days. On exam his left lower extremity appears significantly improved when compared to pictures from his last ER visit 1 week ago. Will hold off on labs and will add UA only at this time. Patient is hypertensive but otherwise vitals are stable. No evidence of sepsis. Medications Administered Discontinued Medications Generic Name Dose Route Start Last Admin Trade Name Freq PRN Reason Stop Dose Admin Tramadol HCl 50 mg 10/20/22 20:11 10/20/22 20:16 Tramadol Hcl 50 Mg Tablet PO 10/20/22 20:12 50 mg ONCE ONE Administration Medical Decision Making Medical Decision Making [facility] Narrative: Patient just discharged with diagnosis of cellulitis of the left leg p.o. antibiotic has antibiotics at home blood pressure improved in the ER asking for pain medication will discharge patient home on tramadol Discharge Plan Discharge Clinical Impression: Cellulitis of left leg Patient Disposition: Home, Self-Care Instructions: Cellulitis (ED) Additional Instructions: Continue taking your antibiotic and blood pressure medication Tramadol for pain Follow with PCP as planned Prescriptions: New tramadol 50 mg tablet 50 mg PO Q6H PRN (Reason: pain) Qty: 20 0RF No Action ascorbic acid (vitamin C) [Vitamin C] 1,000 mg Tablet 1,000 mg PO DAILY losartan-hydrochlorothiazide [Hyzaar] 100-25 mg Tablet 1 tab PO DAILY hydralazine 50 mg Tablet 50 mg PO BIDWM cholecalciferol (vitamin D3) [Vitamin D3] 25 mcg (1,000 unit) Tablet 25 mcg PO DAILY Eliquis 5 mg Tablet 10 mg PO BID 30 Days Qty: 120 0RF Rx Instructions: 4 more days of 10mg bid, then decrease to 5mg bid doxycycline hyclate 100 mg tablet 100 mg PO BID Qty: 14 0RF omeprazole 40 mg Capsule,Delayed Release(Dr/Ec) 40 mg PO DAILY@0630 Qty: 30 0RF Interventions: ED Discharge Assessment Last Done: 10/20/22 20:58 Discharge Date/Time: 10/20/22 20:58
[2022-10-20] MEDS: traMADoL HCL 50 MG TABLET PO (20:16)
--- NOTE | 2022-10-20 20:22 | PC.NURSE ---
pt c/o severe lower back pain, medicated with 50mg of Tramdol po
[2022-10-20 20:30] VITALS: BP 146/80
== END 2022-10-20 20:58 | disposition home or self-care (01) ==
PROVIDERS: Emergency Provider Internal Medicine
DX: L03.116 Cellulitis of left lower limb (principal); Z79.01 Long term (current) use of anticoagulants; Z79.899 Other long term (current) drug therapy
CPT/HCPCS: 99283; 99284

== ENCOUNTER 2022-10-30 09:36 | Emergency (ER) | payer MEDICARE, SELFPAY ==
[2022-10-30 09:52] VITALS: BP 171/78; PULSE 74; RESP 16; TEMP 36; O2SAT 99; BMI 36.3
[2022-10-30 10:11] LABS: MANUAL DIFF FLAG NO
[2022-10-30 10:18] LABS: Basophils Percent Auto 0.5 % (0-2); Eosinophils Absolute Auto 0.2 X10*3/uL (0.0-0.4); Eosinophils Percent Auto 2.6 % (0-4); Hematocrit 41.3 % (42.0-52.0); Hemoglobin 14.3 g/dl (14.0-18.0); Imm Gran Abs Auto 0.03 X10*3/uL (0.00-0.03); Imm Gran Pct Auto 0.5 % (0.0-0.4); Lymphocytes Absolute Auto 1.5 X10*3/uL (1.2-4.9); Lymphocytes Percent Auto 25.9 % (20-40); Mean Corpuscular HGB Conc 34.6 g/dl (31.0-36.0); Mean Corpuscular Hemoglobin 28.8 pg (27.0-33.0); Mean Corpuscular Volume 83.3 fL (80.0-98.0); Mean Platelet Volume 9.4 fL (9.4-12.4); Monocytes Absolute Auto 0.6 X10*3/uL (0.1-1.2); Monocytes Percent Auto 10.1 % (2-11); Neutrophils Absolute Auto 3.5 x10*3/uL (2.0-8.3); Neutrophils Percent Auto 60.4 % (45-73); Platelet Count 305 X10*3/uL (160-400); Red Blood Count 4.96 X10*6/uL (4.60-5.80); Red Cell Distribution Width 11.9 % (11.0-16.0); White Blood Count 5.8 X10*3/uL (4.8-10.8)
[2022-10-30 10:27] LABS: Anion Gap 12 (12-20); Blood Urea Nitrogen 13 mg/dL (9-16); Carbon Dioxide 24 mmol/L (22-29); Chloride 107 mmol/L (96-108); Creatinine Clr Calc Pharmacy 98.8; Estimated Glomerular Filt Rate > 60; Glucose Random 235 mg/dL (60-115); Potassium 3.7 mmol/L (3.3-5.1); Sodium 139 mmol/L (135-145)
[2022-10-30 13:32] VITALS: BP 152/91; PULSE 61; RESP 18; TEMP 36.9; O2SAT 97
--- NOTE | 2022-10-30 13:32 | ED.ABDPAIN ---
HPI - Abdominal Pain General Chief Complaint: Abdominal Pain Stated Complaint: Diarrhea/Abd pain admitted recently Time Seen by Provider: 10/30/22 14:04 Source: patient and old records reviewed Mode of arrival: ambulatory Limitations: no limitations History of Present Illness HPI narrative: Patient is a 57-year-old male with history of psoriasis who was recently hospitalized for left leg cellulitis presenting with epigastric abdominal pain and diarrhea since being discharged home. While inpatient he received IV vanco and clindamycin and was discharged home on p.o. doxycycline. He states that he is unsure if he has had blood in his stool or black stools as he does not look at it. He also reports feeling lightheaded. He denies any chest pain or shortness of breath. He reports nausea and decreased appetite but denies any vomiting. He states that his episodes of diarrhea are approximately 3 times per hour. He denies any urinary symptoms. He denies any fevers. He was also started on Eliquis during his recent admission for upper extremity DVTs. MD elicited complaint: abdominal pain Onset (ago): day(s) Pain Consistency: constant Location: epigastric Severity: moderate Radiation: none Exacerbating factors: eating Relieving factors: nothing Context: recent antibiotic use Associated symptoms: nausea and diarrhea Related Data Home Medications Medication Instructions Recorded Confirmed ascorbic acid (vitamin C) 1,000 mg 1,000 mg PO DAILY 10/13/22 10/13/22 tablet (Vitamin C) cholecalciferol (vitamin D3) 25 25 mcg PO DAILY 10/13/22 10/13/22 mcg (1,000 unit) tablet (Vitamin D3) hydralazine 50 mg tablet 50 mg PO BIDWM 10/13/22 10/13/22 losartan 100 1 tab PO DAILY 10/13/22 10/13/22 mg-hydrochlorothiazide 25 mg tablet (Hyzaar) Previous Rx's Medication Instructions Recorded apixaban 5 mg tablet (Eliquis) 10 mg PO BID 30 days #120 tabs 10/20/22 doxycycline hyclate 100 mg tablet 100 mg PO BID #14 tabs 10/20/22 omeprazole 40 mg capsule,delayed 40 mg PO DAILY@0630 #30 caps 10/20/22 release tramadol 50 mg tablet 50 mg PO Q6H PRN pain #20 tabs 10/20/22 Allergies Allergy/AdvReac Type Severity Reaction Status Date / Time No Known Allergies Allergy Verified 10/20/22 19:20 Review of Systems Review of Systems As per HPI. Yes all other systems are reviewed and are negative Constitutional: Reports as per HPI [facility] Past Medical History Medical History Psoriasis Social History Social History Household Members: Family Housing: Apartment Alcohol intake: never Patient Tobacco Use Status: Never used Tobacco Smoked in Last 30 Days: No Use of substances other than those prescribed or required for medical reasons: No Advance Directives: No Advance Directives Information Provided: Yes service: No Current occupational status: unemployed Physical Exam ED Vital Signs: Vital Signs - 24 hr 10/30/22 18:45 Temperature 97.2 F Pulse Rate 60 Respiratory Rate 12 Blood Pressure 158/85 H Pulse Oximetry 97 Oxygen Delivery Method Room Air BMI result Body Mass Index 36.3 Vital signs have been reviewed and appear to be correct. Blood pressure mildly elevated. Heart rate normal. Respiratory rate normal. Temperature normal. Oxygen saturation normal. Const General: cooperative, healthy appearing and no acute distress Orientation/consciousness: oriented to person, oriented to place, oriented to time and patient oriented x3 Limitations: no limitations HENVA Head: Yes normocephalic and Yes atraumatic Ears: external ears normal General nose exam: Normal external nose present Face and sinus: Yes face symmetric Mouth: oropharynx normal and moist mucous membranes Throat: Yes uvula midline Eyes Pupils: Equal, round and reactive pupils present Neck Neck: Yes normal visual inspection and Yes supple Resp Effort & Inspection: normal respiratory effort and able to speak in complete sentences Auscultation: clear to auscultation bilaterally Cardio Rate: regular rate Rhythm: regular rhythm Heart sounds: S1 normal heart sound present and S2 normal heart sound present GI Other: Rectal exam chaperoned by DEBRA Smith. Palpation (GI): Soft to palpation and nontender Auscultation: normoactive bowel sounds Rectal Exam - Male: Yes visual inspection normal and Yes normal sphincter tone General: Yes no CVA tenderness Back/Spine/Pelvis Back: no CVA tenderness Skin General skin exam: elasticity normal and turgor normal Neuro General: oriented to person, oriented to place, oriented to time, patient oriented x3, moves all extremities, no focal motor deficits and CN's II-XI intact bilaterally Cranial nerves: Yes Equal, round and reactive pupils present Cognition (Neuro): normal cognition Extrem General: Yes full ROM, Yes capillary refill normal, Yes no pedal edema and Yes no calf tenderness Right upper extremity: Extremity exam: right hand Details: vascular exam Details: radial pulse present Details: 2+ Left upper extremity: hand Details: vascular exam Details: radial pulse present Details: 2+ Psych Mental Status: mental status grossly normal Affect: normal affect Thought process: Normal thought process present Course Course Course Narrative: RME: 57yo M w/PMHx psoriasis, recently d/c from our facility on 10/20 for sepsis/HELEN/cellulitis c/o abdominal pain and watery diarrhea x18 days since hospital discharge. Reports decreased PO intake and assoc dizziness. Denies melena or brbpr. Abdomen soft nontender EKG, labs, UA, Stool studies ordered Full HPI, ROS and PE to be performed by primary ED provider. Medical Decision Making Medical Decision Making [facility] Narrative: Patient is a 57-year-old male with history of psoriasis who was recently hospitalized for left leg cellulitis presenting with epigastric abdominal pain and diarrhea since being discharged home. On exam patient is nontoxic appearing, awake, A+Ox3, normal neurological exam without focal deficits, abdomen soft and nontender without guarding or rebound tenderness. Given recent inpatient admission with several courses of antibiotics, concerned for C. diff. Less likely appendictis, diverticulitis, partial SBO. Doubt viral enteritis. Low suspicion for secondary causes such as hyperadrenergic state, pheo, adrenal crisis, hyperthyroidism, or sepsis. No indication for imaging at this time. Plan: labs, GI panel, UA, IV fluids, reassess 15:50 Labs unremarkable, awaiting results of C. diff and GI panel. 16:15 Patient signed out to VICTOR MANUEL Rdz pending GI results. 18:19- labs reviewed. Initial troponin 27, 3 hour repeat without rise, [place] unlikely. Occult stool negative. C diff negative. Verified with the lab stool panel will not result today Results discussed with patient including worrisome signs and symptoms and strict return precautions, and when to return to the emergency department. They verbalized understanding and feel safe for discharge at this time. Differential Diagnosis Differential Diagnoses: The differential diagnosis associated with the presentation includes As above. Admission/Observation Consideration of admission/observation: Escalation of care including admission/observation considered Lab Data MDM Lab Attestation statement: I reviewed the patient's lab results. 10/30/22 10:07 10/30/22 10:07 Labs: Lab Results 10/30/22 10/30/22 10/30/22 Range/Units 10:07 10:07 13:53 WBC 5.8 (4.8-10.8) X10*3/uL RBC 4.96 (4.60-5.80) X10*6/uL Hgb 14.3 (14.0-18.0) g/dl Hct 41.3 L (42.0-52.0) % MCV 83.3 (80.0-98.0) fL MCH 28.8 (27.0-33.0) pg MCHC 34.6 (31.0-36.0) g/dl RDW 11.9 (11.0-16.0) % Plt Count 305 D (160-400) X10*3/uL MPV 9.4 (9.4-12.4) fL Immature Gran % (Auto) 0.5 H (0.0-0.4) % Neut % (Auto) 60.4 (45-73) % Lymph % (Auto) 25.9 (20-40) % [place] % (Auto) 10.1 (2-11) % Eos % (Auto) 2.6 (0-4) % Baso % (Auto) 0.5 (0-2) % Lymph # (Auto) 1.5 (1.2-4.9) X10*3/uL [place] # (Auto) 0.6 (0.1-1.2) X10*3/uL Eos # (Auto) 0.2 (0.0-0.4) X10*3/uL Baso # (Auto) 0.0 (0.0-0.2) X10*3/uL Abs Immat Gran (auto) 0.03 (0.00-0.03) X10*3/uL Absolute Neuts (auto) 3.5 (2.0-8.3) x10*3/uL Absolute Nucleated RBC 0.000 (0.0-0.012) X10*3/uL Nucleated RBC % (auto) 0.0 (0.0-0.2) /100WBC Sodium 139 (135-145) mmol/L Potassium 3.7 (3.3-5.1) mmol/L Chloride 107 (96-108) mmol/L Carbon Dioxide 24 (22-29) mmol/L Anion Gap 12 (12-20) BUN 13 (9-16) mg/dL Creatinine 0.90 (0.5-1.4) mg/dL Estim Creat Clear Calc 98.8 Estimated GFR > 60 Random Glucose 235 H (60-115) mg/dL Calcium 10.0 (8.4-10.2) mg/dL Magnesium 2.0 (1.6-2.6) mg/dL Total Bilirubin 0.4 (0.0-1.0) mg/dL Direct Bilirubin 0.1 (0.0-0.5) mg/dL AST 25 (5-37) U/L ALT 34 (0-40) U/L Alkaline Phosphatase 62 (39-117) U/L Troponin I High Sens 27.0 (<3.5-35.0) ng/L Total Protein 7.7 (6.5-8.0) g/dL Albumin 4.0 (3.5-5.0) g/dL Lipase 33 (8-78) U/L Urine Color Urine Appearance Urine pH (5.0-9.0) Ur Specific [place] (1.005-1.025) Urine Protein (Neg-Trace) mg/dL Urine Glucose (UA) (Negative) mg/dL Urine Ketones (Negative) mg/dL Urine Blood (Negative) Urine Nitrite (Negative) Ur Leukocyte Esterase (Negative) Stool Occult Blood (NEGATIVE) Stl C. cayetanensis PCR (Not Detect.) Stool Rotavirus A PCR (Not Detect.) Stl Adenov F 40/41 PCR (Not Detect.) Stool Astrovirus (PCR) (Not Detect.) Stool Campylobacter PCR (Not Detect.) Stool Cryptosporidium PCR (Not Detect.) Stl Sh Tox Pr E STEC PCR (Not Detect.) Stool E coli O157 PCR (Not Detect.) Stl Enterotoxigenic E PCR (Not Detect.) Stool EPEC (PCR) (Not Detect.) Stool EAEC (PCR) (Not Detect.) Stl E. histolytica PCR (Not Detect.) Stool Giardia Lamblia PCR (Not Detect.) Stl P. shigelloides PCR (Not Detect.) Stool Salmonella PCR (Not Detect.) Stool Sapovirus (PCR) (Not Detect.) Stl Shigella/EIEC PCR (Not Detect.) St Y.enterocolitica PCR (Not Detect.) Stool Vibrio (PCR) (Not Detect.) Stl Vibrio cholerae PCR (Not Detect.) Stl Norovirus GI/GII PCR (Not Detect.) C. difficile Tox B Gene (Negative) 10/30/22 10/30/22 10/30/22 Range/Units 14:08 15:21 15:21 WBC (4.8-10.8) X10*3/uL RBC (4.60-5.80) X10*6/uL Hgb (14.0-18.0) g/dl Hct (42.0-52.0) % MCV (80.0-98.0) fL MCH (27.0-33.0) pg MCHC (31.0-36.0) g/dl RDW (11.0-16.0) % Plt Count (160-400) X10*3/uL MPV (9.4-12.4) fL Immature Gran % (Auto) (0.0-0.4) % Neut % (Auto) (45-73) % Lymph % (Auto) (20-40) % [place] % (Auto) (2-11) % Eos % (Auto) (0-4) % Baso % (Auto) (0-2) % Lymph # (Auto) (1.2-4.9) X10*3/uL [place] # (Auto) (0.1-1.2) X10*3/uL Eos # (Auto) (0.0-0.4) X10*3/uL Baso # (Auto) (0.0-0.2) X10*3/uL Abs Immat Gran (auto) (0.00-0.03) X10*3/uL Absolute Neuts (auto) (2.0-8.3) x10*3/uL Absolute Nucleated RBC (0.0-0.012) X10*3/uL Nucleated RBC % (auto) (0.0-0.2) /100WBC Sodium (135-145) mmol/L Potassium (3.3-5.1) mmol/L Chloride (96-108) mmol/L Carbon Dioxide (22-29) mmol/L Anion Gap (12-20) BUN (9-16) mg/dL Creatinine (0.5-1.4) mg/dL Estim Creat Clear Calc Estimated GFR Random Glucose (60-115) mg/dL Calcium (8.4-10.2) mg/dL Magnesium (1.6-2.6) mg/dL Total Bilirubin (0.0-1.0) mg/dL Direct Bilirubin (0.0-0.5) mg/dL AST (5-37) U/L ALT (0-40) U/L Alkaline Phosphatase (39-117) U/L Troponin I High Sens (<3.5-35.0) ng/L Total Protein (6.5-8.0) g/dL Albumin (3.5-5.0) g/dL Lipase (8-78) U/L Urine Color Yellow Urine Appearance Clear Urine pH 7.0 (5.0-9.0) Ur Specific [place] <= 1.005 (1.005-1.025) Urine Protein Negative (Neg-Trace) mg/dL Urine Glucose (UA) Negative (Negative) mg/dL Urine Ketones Negative (Negative) mg/dL Urine Blood Negative (Negative) Urine Nitrite Negative (Negative) Ur Leukocyte Esterase Negative (Negative) Stool Occult Blood NEGATIVE (NEGATIVE) Stl C. cayetanensis PCR (Not Detect.) Stool Rotavirus A PCR (Not Detect.) Stl Adenov F 40/41 PCR (Not Detect.) Stool Astrovirus (PCR) (Not Detect.) Stool Campylobacter PCR (Not Detect.) Stool Cryptosporidium PCR (Not Detect.) Stl Sh Tox Pr E STEC PCR (Not Detect.) Stool E coli O157 PCR (Not Detect.) Stl Enterotoxigenic E PCR (Not Detect.) Stool EPEC (PCR) (Not Detect.) Stool EAEC (PCR) (Not Detect.) Stl E. histolytica PCR (Not Detect.) Stool Giardia Lamblia PCR (Not Detect.) Stl P. shigelloides PCR (Not Detect.) Stool Salmonella PCR (Not Detect.) Stool Sapovirus (PCR) (Not Detect.) Stl Shigella/EIEC PCR (Not Detect.) St Y.enterocolitica PCR (Not Detect.) Stool Vibrio (PCR) (Not Detect.) Stl Vibrio cholerae PCR (Not Detect.) Stl Norovirus GI/GII PCR (Not Detect.) C. difficile Tox B Gene NEGATIVE (Negative) 10/30/22 10/30/22 Range/Units 17:30 19:19 WBC (4.8-10.8) X10*3/uL RBC (4.60-5.80) X10*6/uL Hgb (14.0-18.0) g/dl Hct (42.0-52.0) % MCV (80.0-98.0) fL MCH (27.0-33.0) pg MCHC (31.0-36.0) g/dl RDW (11.0-16.0) % Plt Count (160-400) X10*3/uL MPV (9.4-12.4) fL Immature Gran % (Auto) (0.0-0.4) % Neut % (Auto) (45-73) % Lymph % (Auto) (20-40) % [place] % (Auto) (2-11) % Eos % (Auto) (0-4) % Baso % (Auto) (0-2) % Lymph # (Auto) (1.2-4.9) X10*3/uL [place] # (Auto) (0.1-1.2) X10*3/uL Eos # (Auto) (0.0-0.4) X10*3/uL Baso # (Auto) (0.0-0.2) X10*3/uL Abs Immat Gran (auto) (0.00-0.03) X10*3/uL Absolute Neuts (auto) (2.0-8.3) x10*3/uL Absolute Nucleated RBC (0.0-0.012) X10*3/uL Nucleated RBC % (auto) (0.0-0.2) /100WBC Sodium (135-145) mmol/L Potassium (3.3-5.1) mmol/L Chloride (96-108) mmol/L Carbon Dioxide (22-29) mmol/L Anion Gap (12-20) BUN (9-16) mg/dL Creatinine (0.5-1.4) mg/dL Estim Creat Clear Calc Estimated GFR Random Glucose (60-115) mg/dL Calcium (8.4-10.2) mg/dL Magnesium (1.6-2.6) mg/dL Total Bilirubin (0.0-1.0) mg/dL Direct Bilirubin (0.0-0.5) mg/dL AST (5-37) U/L ALT (0-40) U/L Alkaline Phosphatase (39-117) U/L Troponin I High Sens 25.2 (<3.5-35.0) ng/L Total Protein (6.5-8.0) g/dL Albumin (3.5-5.0) g/dL Lipase (8-78) U/L Urine Color Urine Appearance Urine pH (5.0-9.0) Ur Specific [place] (1.005-1.025) Urine Protein (Neg-Trace) mg/dL Urine Glucose (UA) (Negative) mg/dL Urine Ketones (Negative) mg/dL Urine Blood (Negative) Urine Nitrite (Negative) Ur Leukocyte Esterase (Negative) Stool Occult Blood (NEGATIVE) Stl C. cayetanensis PCR Not Detected (Not Detect.) Stool Rotavirus A PCR Not Detected (Not Detect.) Stl Adenov F 40/41 PCR Not Detected (Not Detect.) Stool Astrovirus (PCR) Not Detected (Not Detect.) Stool Campylobacter PCR Not Detected (Not Detect.) Stool Cryptosporidium PCR Not Detected (Not Detect.) Stl Sh Tox Pr E STEC PCR Not Detected (Not Detect.) Stool E coli O157 PCR Not applicable (Not Detect.) Stl Enterotoxigenic E PCR Not Detected (Not Detect.) Stool EPEC (PCR) Not Detected (Not Detect.) Stool EAEC (PCR) Not Detected (Not Detect.) Stl E. histolytica PCR Not Detected (Not Detect.) Stool Giardia Lamblia PCR Not Detected (Not Detect.) Stl P. shigelloides PCR Not Detected (Not Detect.) Stool Salmonella PCR Not Detected (Not Detect.) Stool Sapovirus (PCR) Not Detected (Not Detect.) Stl Shigella/EIEC PCR Not Detected (Not Detect.) St Y.enterocolitica PCR Not Detected (Not Detect.) Stool Vibrio (PCR) Not Detected (Not Detect.) Stl Vibrio cholerae PCR Not Detected (Not Detect.) Stl Norovirus GI/GII PCR Not Detected (Not Detect.) C. difficile Tox B Gene (Negative) Independent Interpretation I performed an independent interpretation of an: EKG Interpretation: EKG: normal sinus rhythm, rate 62bpm, normal HI and QT intervals, no evidence of STEMI External Record Review External record reviewed: Inpatient record, Office record and Outpatient record Medications Administered Discontinued Medications Generic Name Dose Route Start Last Admin Trade Name Freq PRN Reason Stop Dose Admin Sodium Chloride 1,000 mls @ 999 mls/hr 10/30/22 14:45 10/30/22 17:48 Ns IV 10/30/22 15:45 Infused .Q1H1M LUCÍA Infusion Ondansetron HCl 4 mg 10/30/22 14:43 10/30/22 15:32 Ondansetron Hcl 4 Mg/2 Ml Vial IVPUSH 10/30/22 14:44 4 mg ONCE ONE Administration Discharge Plan Discharge Clinical Impression: Diarrhea Patient Disposition: Home, Self-Care Instructions: Acute Diarrhea (ED) Additional Instructions: Your blood work is reassuring. You were negative for C diff We did send off stool studies, these are send out we will call you with positive results in the next few days Make sure you are staying hydrated If he develops bloody or black stool, persistent worsening diarrhea, you are unable to eat or drink return to the ED Prescriptions: No Action ascorbic acid (vitamin C) [Vitamin C] 1,000 mg Tablet 1,000 mg PO DAILY losartan-hydrochlorothiazide [Hyzaar] 100-25 mg Tablet 1 tab PO DAILY hydralazine 50 mg Tablet 50 mg PO BIDWM cholecalciferol (vitamin D3) [Vitamin D3] 25 mcg (1,000 unit) Tablet 25 mcg PO DAILY Eliquis 5 mg Tablet 10 mg PO BID 30 Days Qty: 120 0RF Rx Instructions: 4 more days of 10mg bid, then decrease to 5mg bid doxycycline hyclate 100 mg tablet 100 mg PO BID Qty: 14 0RF omeprazole 40 mg Capsule,Delayed Release(Dr/Ec) 40 mg PO DAILY@0630 Qty: 30 0RF tramadol 50 mg tablet 50 mg PO Q6H PRN (Reason: pain) Qty: 20 0RF Referrals: [facility] [place] Gastroenterology Services [Provider Group] Interventions: ED Discharge Assessment Last Done: 10/30/22 19:06 Discharge Date/Time: 10/30/22 19:28
--- NOTE | 2022-10-30 13:34 | ECG_ITS ---
Test Reason : ABD PAIN Blood Pressure : / mmHG Vent. Rate : 062 BPM Atrial Rate : 062 BPM P-R Int : 124 ms QRS Dur : 108 ms QT Int : 412 ms P-R-T Axes : 017 012 092 degrees QTc Int : 418 ms Normal sinus rhythm Normal EKG No previous ECGs available Referred By: Kajal Mcintosh Electronically Signed By:ADILENE REID
[2022-10-30 13:52] VITALS: BP 133/91; PULSE 99; RESP 18; TEMP 36.6; O2SAT 98
[2022-10-30 14:20] LABS: Appearance Urine Clear; Color Urine Yellow; Glucose Urine UA Negative (Negative); Leukocyte Esterase Urine Negative (Negative); Nitrite Urine Negative (Negative); Specific Gravity - Urine <= 1.005 (1.005-1.025); Urine Blood Negative (Negative); Urine Ketones Negative (Negative); Urine Protein Negative (Neg-Trace)
[2022-10-30 14:30] LABS: Alanine Aminotransferase 34 U/L (0-40); Alkaline Phosphatase 62 U/L (39-117); Aspartate Amino Transferase 25 U/L (5-37); Bilirubin Direct 0.1 mg/dL (0.0-0.5); Bilirubin Total 0.4 mg/dL (0.0-1.0); Lipase 33 U/L (8-78); Total Protein 7.7 g/dL (6.5-8.0)
[2022-10-30] MEDS: ondansetron HCL 4 MG/2 ML VIAL IVPUSH (15:32)
[2022-10-30] MEDS: 0.9 % Sodium Chloride 1,000 ML 999 ML IV (15:32)
[2022-10-30 15:34] LABS: OBS Int Ctl Valid YES; OBS1 NEGATIVE (NEGATIVE)
[2022-10-30 16:31] VITALS: BP 145/71; PULSE 63; RESP 12; TEMP 36.2; O2SAT 98
[2022-10-30 16:53] LABS: CDiff Gene PCR NEGATIVE (Negative)
[2022-10-30 18:06] LABS: Troponin-I High Sensitivity 25.2 ng/L (<3.5-35.0)
[2022-10-30 18:45] VITALS: BP 158/85; PULSE 60; RESP 12; TEMP 36.2; O2SAT 97
[2022-10-31 12:48] LABS: Adenovirus F 40/41 Not Detected (Not Detect.); Astrovirus Not Detected (Not Detect.); Campylobacter Not Detected (Not Detect.); Cryptosporidium Not Detected (Not Detect.); Cyclospora cayetanensis Not Detected (Not Detect.); E. coli EAEC Not Detected (Not Detect.); E. coli EPEC Not Detected (Not Detect.); E. coli ETEC Not Detected (Not Detect.); E. coli STEC Not Detected (Not Detect.); Entamoeba histolytica Not Detected (Not Detect.); Giardia lamblia Not Detected (Not Detect.); Norovirus GI/GII Not Detected (Not Detect.); Plesiomonas shigelloides Not Detected (Not Detect.); Rotavirus A Not Detected (Not Detect.); Salmonella Not Detected (Not Detect.); Sapovirus Not Detected (Not Detect.); Shigella sp./EIEC Not Detected (Not Detect.); Vibrio Not Detected (Not Detect.); Vibrio Cholerae Not Detected (Not Detect.); Yersinia enterocolitica Not Detected (Not Detect.)
== END 2022-10-30 19:28 | disposition home or self-care (01) ==
PROVIDERS: Physician Assistant; Registered Nurse Emergency; Emergency Provider Emergency Medicine Emergency Medical Services
DX: R10.9 Unspecified abdominal pain (principal); R19.7 Diarrhea, unspecified; L40.9 Psoriasis, unspecified
CPT/HCPCS: 36415; 80048; 80076; 81003; 82272; 83690; 83735; 84484; 85025; 87493; 87507; 93005; 96361; 96374; 99284; 99285; J2405

== ENCOUNTER 2023-10-02 12:40 | Emergency (ER) | payer MEDICARE, MEDICAID, SELFPAY ==
--- NOTE | ~2023-10-02 | US_ITS ---
EXAMINATION: US VENOUS ULTRASOUND WITH DOPPLER LOWER EXTREMITY, BILATERAL CLINICAL INFORMATION: Pain. COMPARISON: Left lower extremity ultrasound 10/17/2022. Bilateral lower extremity ultrasound 10/17/2022. TECHNIQUE: Ultrasound of the deep veins is performed from the hip to the calf with compression sonography and color and pulse Doppler assessment. Spectral analysis with color-flow imaging is performed. FINDINGS: RIGHT: There is normal venous compression and respiratory variation and augmented flow. The visualized common femoral vein, superficial femoral vein, profunda femoral vein, popliteal vein, and the trifurcation region shows no evidence of deep venous thrombosis. There is no significant popliteal fossa cyst. LEFT: There is normal venous compression and respiratory variation and augmented flow. The visualized common femoral vein, superficial femoral vein, profunda femoral vein, popliteal vein, and the trifurcation region shows no evidence of deep venous thrombosis. There is no significant popliteal fossa cyst. ADDITIONAL FINDINGS: Nonaggressive-appearing prominent left inguinal lymph node measuring 0.8 x 1.5 cm with smooth well-defined margins, preserved fatty carlee and normal cortex most likely reactive in nature. US/US venous duplex LE BI IMPRESSION: No DVT demonstrated in the bilateral lower extremities.
--- NOTE | ~2023-10-02 | CT_ITS ---
EXAMINATION: CT ANGIOGRAM OF THE CHEST WITH AND WITHOUT CONTRAST (CT PULMONARY ANGIOGRAM FOR PE) CLINICAL INFORMATION: Reason for Exam chest pain, hx of DVT COMPARISON: None available. TECHNIQUE: Prior to contrast administration, noncontrast localization images were obtained. Subsequently, multidetector volumetric imaging was performed from the thoracic inlet to below the diaphragms following the administration of 65 mL Omnipaque 350 intravenous contrast. No contrast reaction reported Sagittal, coronal, and MIP oblique sagittal reformatted images were obtained on the CT workstation, uploaded to PACS, and reviewed. This CT examination was performed using dose optimization techniques as appropriate, variously including the following: *Automated exposure control *Adjustment of mA and/or kV according to patient size (this includes techniques or standardized protocols for targeted exams where dose is matched to indication/reason for exam; i.e. extremities or head) *Use of iterative reconstruction technique Total exam dose-length product 393 mGy-cm FINDINGS: QUALITY OF STUDY/CONTRAST BOLUS: Satisfactory. PULMONARY ARTERIES: No pulmonary emboli. THORACIC AORTA: No aneurysm. LUNG: No focal consolidation, nodules or masses. Moderate bronchial thickening is noted. PLEURA: No pleural effusion or pneumothorax. MEDIASTINUM: Normal heart size. No pericardial effusion. No hilar or mediastinal lymphadenopathy. No evidence of septal bowing or right heart strain. CORONARY ARTERY CALCIFICATION: None visualized on this study. CHEST WALL/AXILLA: No axillary or internal mammary lymphadenopathy. OSSEOUS STRUCTURES: No acute or suspicious osseous abnormality. UPPER ABDOMEN: Unremarkable. No reflux of contrast into the hepatic veins to suggest elevated right heart pressures. CT/CT angio chest PE protocol IMPRESSION: 1. No evidence of pulmonary emboli. 2. Moderate bronchial thickening. VTE: negative.
--- NOTE | 2023-10-02 12:44 | ECG_ITS ---
Test Reason : chest pain Blood Pressure : / mmHG Vent. Rate : 071 BPM Atrial Rate : 071 BPM P-R Int : 110 ms QRS Dur : 108 ms QT Int : 382 ms P-R-T Axes : 039 022 138 degrees QTc Int : 415 ms Sinus rhythm with short MO ST & T wave abnormality, consider lateral ischemia Abnormal ECG When compared with ECG of 30-OCT-2022 13:36, No significant change was found Referred By: Yvette Mcintosh Electronically Signed By:AKIT HENDRICKSON MD
[2023-10-02 12:53] VITALS: BP 139/78; PULSE 80; RESP 20; TEMP 36.6; O2SAT 94; BMI 36.8
--- NOTE | 2023-10-02 12:55 | ED_ITS ---
HPI - Chest Pain General Chief Complaint: Chest Pain Stated Complaint: Chest Pain Time Seen by Provider: 10/02/23 17:20 Source: patient Mode of arrival: ambulatory Limitations: no limitations History of Present Illness HPI narrative: Patient is a 58 year old assigned male at with a history of upper extremity DVT in 2022 and HTN presenting to the emergency department today with left lower leg pain and left sided chest pain. Patient states that last night he had left lower leg pain and this morning he woke up with left sided chest pain. Patient states that he feels as though his heart is full . Patient states that he is still taking his anti-hypertensive medications but is not currently on any anti-coagulant medicines. Patient denies any dizziness, lightheadedness, abdominal pain, nausea, vomiting, fever, chills, blurry vision, double vision, loss of vision, difficulty breathing, shortness of breath, back pain, night sweats, pain with urination, increased urinary frequency, increased urinary urgency, blood in his urine or stool, syncope or a near syncopal episode, recent trauma or falls, bowel incontinence, bladder incontinence, bowel retention, bladder retention, or any other complaints at this time. MD complaint: chest pain Onset (ago): hour(s) Timing of current episode: constant Prior episodes: No Onset: during rest Pain location: left chest Pain radiation: none Severity: moderate Quality: fullness Relieving factors: nothing Exacerbating factors: nothing Context: recent travel Treatment prior to arrival: none Risk Factors Coronary artery disease risk factors: hypertension Pulmonary embolism risk factors: history of deep vein thrombosis Related Data Home Medications ?Medication ?Instructions ?Recorded ?Confirmed ascorbic acid (vitamin C) 1,000 mg 1,000 mg PO DAILY 10/13/22 10/13/22 tablet (Vitamin C) cholecalciferol (vitamin D3) 25 25 mcg PO DAILY 10/13/22 10/13/22 mcg (1,000 unit) tablet (Vitamin D3) hydralazine 50 mg tablet 50 mg PO BIDWM 10/13/22 10/13/22 losartan 100 1 tab PO DAILY 10/13/22 10/13/22 mg-hydrochlorothiazide 25 mg tablet (Hyzaar) Previous Rx's ?Medication ?Instructions ?Recorded apixaban 5 mg tablet (Eliquis) 10 mg (2 x 5 mg) PO BID 30 days 10/20/22 #120 tabs doxycycline hyclate 100 mg tablet 100 mg PO BID #14 tabs 10/20/22 omeprazole 40 mg capsule,delayed 40 mg PO DAILY@0630 #30 caps 10/20/22 release tramadol 50 mg tablet 50 mg PO Q6H PRN pain #20 tabs 10/20/22 Allergies Allergy/AdvReac Type Severity Reaction Status Date / Time No Known Allergies Allergy Verified 10/02/23 12:54 Review of Systems 2 Constitutional: Constitutional: Reports no additional constitutional complaints, Denies chills, Denies fever(s) and Denies night sweats Eyes: Eyes: Reports no additional eye complaints, Denies blurry vision, Denies change in vision, Denies diplopia, Denies eye discharge, Denies loss of vision and Denies eye pain ENT: Denies dizziness Cardiovascular: Cardiovascular: Reports no additional cardiovascular complaints, Reports chest pain, Denies lightheadedness, Denies Loss of Consciousness and Denies dyspnea Respiratory: Respiratory: Reports no additional respiratory complaints and Denies dyspnea Gastrointestinal: Gastrointestinal: Reports no additional gastrointestinal complaints, Denies abdominal pain, Denies melena, Denies hematochezia, Denies change in bowel habits and Denies change in stool character Genitourinary: Genitourinary: Reports no additional male genitourinary complaints, Denies hematuria, Denies oliguria, Denies difficulty urinating, Denies dysuria, Denies urinary frequency, Denies urinary hesitancy, Denies urinary incontinence and Denies urinary urgency Musculoskeletal: Musculoskeletal: Reports no additional musculoskeletal complaints, Denies numbness and Denies tingling Comments: left lower leg pain - now resolved Neurologic: Denies dizziness, Denies loss of vision, Denies numbness and Denies tingling Psychiatric: Psychiatric: Reports no additional psychiatric complaints Endocrine: Endocrine: Reports no additional endocrine complaints Hematologic/Lymphatic: Hematologic/Lymphatic: Reports no additional hematologic/lymphatic complaints Allergic/Immunologic: Allergic/Immunologic: Reports no additional allergic/immunologic complaints PMFSH Past Medical History Attestation statement: The following information was validated with the patient. Source: old records reviewed and nursing notes reviewed Medical History Psoriasis Social History Social History Household Members: Family Housing: Apartment Alcohol intake: never Patient Tobacco Use Status: Never used Tobacco Smoked in Last 30 Days: No Use of substances other than those prescribed or required for medical reasons: No Advance Directives: No Advance Directives Information Provided: No Do you have a plan to hurt others: No Plan service: No Current occupational status: unemployed Physical Exam 2 Vital Signs: Vital Signs: Last Vital Signs Temp 98 F 10/02/23 21:54 Pulse 59 10/02/23 21:54 Resp 20 10/02/23 21:54 BP 138/60 10/02/23 21:54 Pulse Ox 98 10/02/23 21:54 O2 Del Method Room Air 10/02/23 21:54 BMI result Body Mass Index 36.8 Const: General: cooperative, no acute distress, alert and awake Nutritional Appearance: well nourished Orientation/consciousness: patient oriented x3 Limitations: no limitations HEENT: Head: Yes normal to inspection and Yes atraumatic Ears: hearing grossly normal bilaterally and external ears normal General nose exam: Normal external nose present, no nasal discharge noted and no epistaxis Face and sinus: Yes normal facial exam, No abrasion and No laceration Mouth: Normal oral and palatal mucosa present, no drooling and no muffled voice Eyes: General: appearance normal, both eyes and all related structures P eriorbital: periorbital findings normal Eyelids: Yes eyelids normal C onjunctivae: conjunctivae normal Pupils: Equal, round and reactive pupils present EOM: EOMs intact bilaterally Neck: Neck: Yes normal visual inspection, Yes full ROM and Yes no lymphadenopathy Chest: Chest palpation & inspection: normal inspection of the chest Resp: Effort & Inspection: normal respiratory effort and able to speak in complete sentences Cardio: Rate: regular rate Rhythm: regular rhythm GI: Inspection: Yes normal to inspection Neuro: General: patient oriented x3 and moves all extremities Cranial nerves: Yes Equal, round and reactive pupils present Cognition (Neuro): n ormal cognition Motor exam (neuro): 5/5 motor strength present throughout Sensory Exam: Normal double simultaneous stimulation for sensation C oordination: [id number] test normal Extrem: General: Yes normal to inspection, Yes full ROM and Yes capillary refill normal Psych: Appearance: grossly normal Mental Status: mental status grossly normal Affect: normal affect Attitude: cooperative Thought process: N ormal thought process present Thought content: Normal thought content present Insight: Good insight present (Psych) Course Course Course Narrative: This is an RME: Additional HPI, ROS, PE not included below will be deferred to primary provider. 58 yo m hx of sepsis, obesity prsents w/ L sided cp which worsens w/ inspiration also has been having a cough now improved since yesterday. PE benign Plan- labs, ekg Reevaluation(s) Reevaluation #1: Sign out to Jose. Pending CTA Reevaluation #2: Patient received in sign-out at change shift pending CT angiography which ruled out PE. It does show mild bronchial wall thickening. The patient has no fever, no significant cough. Acute bronchitis is favored to be less likely. I discussed this with the patient. He would complain of worsening chest pain. On further evaluation the patient reports he has had heartburn over the last 2 days in his worsening chest pain in the ER happened after he was eating [employer]. I discussed that his chest pain may be related to heartburn and he will follow- up with his primary doctor Time: 22:02 Medications Administered Discontinued Medications Generic Name Dose Route Start Last Admin Trade Name Jose Davidq PRN Reason Stop Dose Admin Iohexol 65 ml 10/02/23 19:40 10/02/23 19:40 Iohexol 350 Mg/Ml 100 Ml Infus..Btl IV 10/02/23 19:41 65 ml ONCE ONE Administration Medical Decision Making Medical Decision Making MDM Narrative: Patient is a 58 year old assigned male at with a history of upper extremity DVT in 2022 and HTN presenting to the emergency department today with left sided chest pain and now resolved left lower leg pain. Patient's physical exam was unremarkable. Patient's blood work showed an initial troponin of 45.6 with a repeat of 48.3. Patient's initial EKG and repeat EKGs were unremarkable. Patient's bilateral lower extremity DVT studies showed no acute process. Patient's CTA of the chest is pending at this time. I most suspicious for DVT vs. NSTEMI. I explained my physical exam findings as well as all test results to the patient. I answered all questions asked by the patient. Patient signed out to evening FROY pending CTA results. Patient's disposition will be determiend after CTA results. Differential Diagnosis Differential Diagnoses: The differential diagnosis associated with the presentation includes Chest pain NSTEMI STEMI PE Admission/Observation Consideration of admission/observation: Escalation of care including admission/observation considered Patient's disposition will be determined after CTA results. Lab Data [facility] Lab Attestation statement: I reviewed the patient's lab results. My interpretation of these results are in the [facility] Rationale portion of this note. 10/02/23 13:06 10/02/23 13:06 Labs: Lab Results 10/02/23 10/02/23 10/02/23 Range/Units 13:06 17:03 19:48 WBC 5.4 (4.8-10.8) X10*3/uL RBC 5.35 (4.60-5.80) X10*6/uL Hgb 15.7 (14.0-18.0) g/dl Hct 43.9 (42.0-52.0) % MCV 82.1 (80.0-98.0) fL MCH 29.3 (27.0-33.0) pg MCHC 35.8 (31.0-36.0) g/dl RDW 11.9 (11.0-16.0) % Plt Count 232 (160-400) X10*3/uL MPV 9.8 (9.4-12.4) fL Immature Gran % (Auto) 0.2 (0.0-0.4) % Neut % (Auto) 55.1 (45-73) % Lymph % (Auto) 30.3 (20-40) % Otero % (Auto) 10.5 (2-11) % Eos % (Auto) 3.5 (0-4) % Baso % (Auto) 0.4 (0-2) % Lymph # (Auto) 1.7 (1.2-4.9) X10*3/uL Otero # (Auto) 0.6 (0.1-1.2) X10*3/uL Eos # (Auto) 0.2 (0.0-0.4) X10*3/uL Baso # (Auto) 0.0 (0.0-0.2) X10*3/uL Abs Immat Gran (auto) 0.01 (0.00-0.03) X10*3/uL Absolute Neuts (auto) 3.0 (2.0-8.3) x10*3/uL Absolute Nucleated RBC 0.000 (0.0-0.012) X10*3/uL Nucleated RBC % (auto) 0.0 (0.0-0.2) /100WBC PT 13.4 H (11.1-13.3) SEC INR 1.1 (0.9-1.1) Sodium 137 (135-145) mmol/L Potassium 3.7 (3.3-5.1) mmol/L Chloride 103 (96-108) mmol/L Carbon Dioxide 25 (22-29) mmol/L Anion Gap 13 (12-20) BUN 18 H (9-16) mg/dL Creatinine 0.90 (0.5-1.4) mg/dL Estim Creat Clear Calc 98.3 Estimated GFR > 60 Random Glucose 202 H (60-115) mg/dL Calcium 10.6 H (8.4-10.2) mg/dL Magnesium 2.2 (1.6-2.6) mg/dL Total Bilirubin 0.8 (0.0-1.0) mg/dL AST 39 H (5-37) U/L ALT 41 H (0-40) U/L Alkaline Phosphatase 57 (39-117) U/L Troponin I High Sens 45.6 H D 48.3 H 34.9 (<3.5-35.0) ng/L Total Protein 7.9 (6.5-8.0) g/dL Albumin 4.5 (3.5-5.0) g/dL Independent Interpretation I performed an independent interpretation of an: EKG and Ultrasound Interpretation: My interpretation is in agreement with the radiologist's impression of this imaging study. - EXAMINATION: US VENOUS ULTRASOUND WITH DOPPLER LOWER EXTREMITY, BILATERAL CLINICAL INFORMATION: Pain. COMPARISON: Left lower extremity ultrasound 10/17/2022. Bilateral lower extremity ultrasound 10/17/2022. TECHNIQUE: Ultrasound of the deep veins is performed from the hip to the calf with compression sonography and color and pulse Doppler assessment. Spectral analysis with color-flow imaging is performed. FINDINGS: RIGHT: There is normal venous compression and respiratory variation and augmented flow. The visualized common femoral vein, superficial femoral vein, profunda femoral vein, popliteal vein, and the trifurcation region shows no evidence of deep venous thrombosis. There is no significant popliteal fossa cyst. LEFT: There is normal venous compression and respiratory variation and augmented flow. The visualized common femoral vein, superficial femoral vein, profunda femoral vein, popliteal vein, and the trifurcation region shows no evidence of deep venous thrombosis. There is no significant popliteal fossa cyst. ADDITIONAL FINDINGS: Nonaggressive-appearing prominent left inguinal lymph node measuring 0.8 x 1.5 cm with smooth well-defined margins, preserved fatty carlee and normal cortex most likely reactive in nature. US/US venous duplex LE BI IMPRESSION: No DVT demonstrated in the bilateral lower extremities. Dictated By: Krista Delatorre Signed By: Electronically signed by Krista Delatorre 10/02/23 1834 - Vent. Rate: 071 BPM Atrial Rate: 071 BPM P-R Int: 110 ms QRS Dur: 108 ms QT Int: 382 ms P-R-T Axes: 039 022 138 degrees QTc Int: 415 ms Sinus rhythm with short VT ST & T wave abnormality, consider lateral ischemia Abnormal ECG When compared with ECG of 30-OCT-2022 13:36, No significant change was found DD/ 1243 - Vent. Rate: 060 BPM Atrial Rate: 060 BPM P-R Int: 124 ms QRS Dur: 112 ms QT Int: 416 ms P-R-T Axes: 000 174 041 degrees QTc Int: 416 ms Normal sinus rhythm Right axis deviation Abnormal ECG When compared with ECG of 02-OCT-2023 12:43, QRS axis Shifted right Non-specific change in ST segment in Lateral leads DD/ 1737 Radiology Impression Discussion of test interpretation with radiology: I have reviewed the radiologist's reading. Chronic Conditions Patient?s care impacted by: Hypertension Critical Care Time Critical Care Time Critical Care Time: Yes Total Critical Care Time: 126 Attestation: I spent 126 minutes of Critical Care Time with this patient. This does not include time spent on separately reported billable procedures. Discharge Plan Discharge Clinical Impression: Chest pain Patient Disposition: Home, Self-Care Instructions: Chest Pain (ED) Additional Instructions: Your workup in the ER today was reassuring. This includes your CT scan that shows no evidence of blood clots, You EKGs in your blood work Your symptoms may be related to heartburn You may want to use [id number] Prilosec for your pain Follow-up with your primary doctor Return for new or worsening symptoms Prescriptions: No Action ascorbic acid (vitamin C) [Vitamin C] 1,000 mg Tablet 1,000 mg PO DAILY losartan-hydrochlorothiazide [Hyzaar] 100-25 mg Tablet 1 tab PO DAILY hydralazine 50 mg Tablet 50 mg PO BIDWM cholecalciferol (vitamin D3) [Vitamin D3] 25 mcg (1,000 unit) Tablet 25 mcg PO DAILY Eliquis 5 mg Tablet 10 mg PO BID 30 Days Qty: 120 0RF Rx Instructions: 4 more days of 10mg bid, then decrease to 5mg bid doxycycline hyclate 100 mg tablet 100 mg PO BID Qty: 14 0RF omeprazole 40 mg Capsule,Delayed Release(Dr/Ec) 40 mg PO DAILY@0630 Qty: 30 0RF tramadol 50 mg tablet 50 mg PO Q6H PRN (Reason: pain) Qty: 20 0RF Print Language: Indian
[2023-10-02 13:11] LABS: MANUAL DIFF FLAG NO
[2023-10-02 13:15] LABS: Basophils Percent Auto 0.4 % (0-2); Eosinophils Absolute Auto 0.2 X10*3/uL (0.0-0.4); Eosinophils Percent Auto 3.5 % (0-4); Hematocrit 43.9 % (42.0-52.0); Hemoglobin 15.7 g/dl (14.0-18.0); Imm Gran Abs Auto 0.01 X10*3/uL (0.00-0.03); Imm Gran Pct Auto 0.2 % (0.0-0.4); Lymphocytes Absolute Auto 1.7 X10*3/uL (1.2-4.9); Lymphocytes Percent Auto 30.3 % (20-40); Mean Corpuscular HGB Conc 35.8 g/dl (31.0-36.0); Mean Corpuscular Hemoglobin 29.3 pg (27.0-33.0); Mean Corpuscular Volume 82.1 fL (80.0-98.0); Mean Platelet Volume 9.8 fL (9.4-12.4); Monocytes Absolute Auto 0.6 X10*3/uL (0.1-1.2); Monocytes Percent Auto 10.5 % (2-11); Neutrophils Percent Auto 55.1 % (45-73); Platelet Count 232 X10*3/uL (160-400); Red Blood Count 5.35 X10*6/uL (4.60-5.80); Red Cell Distribution Width 11.9 % (11.0-16.0); White Blood Count 5.4 X10*3/uL (4.8-10.8)
[2023-10-02 13:26] LABS: INTERNATIONAL NORM RATIO 1.1 (0.9-1.1); Prothrombin Time 13.4 SEC (11.1-13.3)
[2023-10-02 13:38] LABS: Alanine Aminotransferase 41 U/L (0-40); Albumin Level 4.5 g/dL (3.5-5.0); Alkaline Phosphatase 57 U/L (39-117); Anion Gap 13 (12-20); Aspartate Amino Transferase 39 U/L (5-37); Bilirubin Total 0.8 mg/dL (0.0-1.0); Blood Urea Nitrogen 18 mg/dL (9-16); Calcium 10.6 mg/dL (8.4-10.2); Carbon Dioxide 25 mmol/L (22-29); Chloride 103 mmol/L (96-108); Creatinine Clr Calc Pharmacy 98.3; Estimated Glomerular Filt Rate > 60; Glucose Random 202 mg/dL (60-115); Magnesium 2.2 mg/dL (1.6-2.6); Potassium 3.7 mmol/L (3.3-5.1); Sodium 137 mmol/L (135-145); Total Protein 7.9 g/dL (6.5-8.0); Troponin-I High Sensitivity 45.6 ng/L (<3.5-35.0)
--- NOTE | 2023-10-02 16:40 | ECG_ITS ---
Test Reason : ELEVATED TROP Blood Pressure : / mmHG Vent. Rate : 060 BPM Atrial Rate : 060 BPM P-R Int : 124 ms QRS Dur : 112 ms QT Int : 416 ms P-R-T Axes : 000 174 041 degrees QTc Int : 416 ms Normal sinus rhythm Right axis deviation Abnormal ECG When compared with ECG of 02-OCT-2023 12:43, QRS axis Shifted right Non-specific change in ST segment in Lateral leads Referred By: Yvette Mcintosh Electronically Signed By:KAIT HENDRICKSON MD
[2023-10-02 17:32] LABS: Troponin-I High Sensitivity 48.3 ng/L (<3.5-35.0)
[2023-10-02 18:13] VITALS: BP 120/69; PULSE 67; RESP 20; TEMP 36.7; O2SAT 98
--- NOTE | 2023-10-02 19:33 | PC.NURSE ---
Patient is in CT scan unable to draw his labs.
[2023-10-02] MEDS: iohexoL 350 MG/ML 100 ML INFUS..BTL 65 ML IV (19:40)
[2023-10-02 20:16] LABS: Troponin-I High Sensitivity 34.9 ng/L (<3.5-35.0)
[2023-10-02 21:54] VITALS: BP 138/60; PULSE 59; RESP 20; TEMP 36.6; O2SAT 98
[2023-10-02 22:26] VITALS: BP 138/60; PULSE 59; RESP 20; TEMP 36.7; O2SAT 98
== END 2023-10-02 22:35 | disposition home or self-care (01) ==
PROVIDERS: Physician Assistant; Emergency Provider Emergency Medicine
DX: R07.9 Chest pain, unspecified (principal); I10 Essential (primary) hypertension; Z86.718 Personal history of other venous thrombosis and embolism
CPT/HCPCS: 36415; 71275; 80053; 83735; 84484; 85025; 85610; 93005; 93970; 99284; 99285; Q9967

== ENCOUNTER → 2023-10-02 12:44 | Outpatient (BNV) | payer MEDICAID, SELFPAY | PROVIDERS: Emergency Provider Emergency Medicine; Visit Provider Internal Medicine Cardiovascular Disease | DX: R94.31 Abnormal electrocardiogram [ECG] [EKG] (principal) | CPT/HCPCS: 93010 ==

== ENCOUNTER 2024-05-27 03:13 | Emergency (ER) | payer OTHER, SELFPAY ==
--- NOTE | 2024-05-27 | ECG_ITS ---
Test Reason : ELEVATED BP Blood Pressure : / mmHG Vent. Rate : 059 BPM Atrial Rate : 059 BPM P-R Int : 136 ms QRS Dur : 110 ms QT Int : 428 ms P-R-T Axes : 033 011 087 degrees QTc Int : 423 ms Sinus bradycardia Otherwise normal ECG When compared with ECG of 02-OCT-2023 17:37, QRS axis Shifted left Nonspecific T wave abnormality, improved in Lateral leads Referred By: Generic ED Physician Electronically Signed By:ADILENE REID
[2024-05-27 03:28] VITALS: BP 191/94; PULSE 64; RESP 16; TEMP 36.7; O2SAT 96; BMI 37.9
[2024-05-27 03:48] LABS: MANUAL DIFF FLAG NO
[2024-05-27 03:49] LABS: Basophils Percent Auto 0.4 % (0-2); Eosinophils Absolute Auto 0.4 X10*3/uL (0.0-0.4); Eosinophils Percent Auto 5.3 % (0-4); Hematocrit 39.9 % (42.0-52.0); Hemoglobin 14.5 g/dl (14.0-18.0); Imm Gran Abs Auto 0.01 X10*3/uL (0.00-0.03); Imm Gran Pct Auto 0.1 % (0.0-0.4); Lymphocytes Absolute Auto 1.9 X10*3/uL (1.2-4.9); Lymphocytes Percent Auto 26.8 % (20-40); Mean Corpuscular HGB Conc 36.3 g/dl (31.0-36.0); Mean Corpuscular Hemoglobin 29.8 pg (27.0-33.0); Mean Corpuscular Volume 82.1 fL (80.0-98.0); Mean Platelet Volume 9.5 fL (9.4-12.4); Monocytes Percent Auto 14.1 % (2-11); Neutrophils Absolute Auto 3.7 x10*3/uL (2.0-8.3); Neutrophils Percent Auto 53.3 % (45-73); Platelet Count 212 X10*3/uL (160-400); Red Blood Count 4.86 X10*6/uL (4.60-5.80); Red Cell Distribution Width 11.6 % (11.0-16.0); White Blood Count 6.9 X10*3/uL (4.8-10.8)
--- NOTE | 2024-05-27 03:49 | MHC.EDTECH ---
Patient brought into room from triage,pt changed into hospital attire,vitals taken,pt placed on the equipment monitor phototypesetting,EKG taken per order and signed by provider,patient ambulated to the bathroom with a steady gait,urine sample obtained and sent to lab,call porras in reach
[2024-05-27 03:50] LABS: Appearance Urine Clear; Color Urine Yellow; Glucose Urine UA Negative (Negative); Leukocyte Esterase Urine Negative (Negative); Nitrite Urine Negative (Negative); Specific Gravity - Urine <= 1.005 (1.005-1.025); Urine Blood Negative (Negative); Urine Ketones Negative (Negative); Urine Protein Negative (Neg-Trace)
[2024-05-27 04:03] LABS: Alanine Aminotransferase 52 U/L (0-40); Albumin Level 4.5 g/dL (3.5-5.0); Alkaline Phosphatase 56 U/L (39-117); Anion Gap 12 (12-20); Aspartate Amino Transferase 48 U/L (5-37); Bilirubin Total 0.3 mg/dL (0.0-1.0); Blood Urea Nitrogen 16 mg/dL (9-16); Carbon Dioxide 25 mmol/L (22-29); Chloride 105 mmol/L (96-108); Creatinine Clr Calc Pharmacy 121.4; Estimated Glomerular Filt Rate > 60; Glucose Random 107 mg/dL (60-115); Potassium 3.6 mmol/L (3.3-5.1); Sodium 138 mmol/L (135-145); Total Protein 7.9 g/dL (6.5-8.0)
--- NOTE | 2024-05-27 05:30 | ED_ITS ---
HPI - General Adult General Chief complaint: General Medical Stated complaint: HBP Time Seen by Provider: 05/27/24 04:49 Source: patient Mode of arrival: ambulatory Limitations: no limitations History of Present Illness ED Provider: HPI narrative: Patient's history of hypertension on amlodipine losartan and hydralazine patient is noncompliant does missed his medication at least 2 times a week taking herbal medication comes here as noticed his blood pressure was high earlier today on arrival was 191/94 patient took his hydralazine prior to arrival during stay in the ER patient's blood pressure improved to 146/79 no nausea no vomiting no chest pain Related Data Home Medications ?Medication ?Instructions ?Recorded ?Confirmed ascorbic acid (vitamin C) 1,000 mg 1,000 mg PO DAILY 10/13/22 10/13/22 tablet (Vitamin C) cholecalciferol (vitamin D3) 25 25 mcg PO DAILY 10/13/22 10/13/22 mcg (1,000 unit) tablet (Vitamin D3) hydralazine 50 mg tablet 50 mg PO BIDWM 10/13/22 10/13/22 losartan 100 1 tab PO DAILY 10/13/22 10/13/22 mg-hydrochlorothiazide 25 mg tablet (Hyzaar) Previous Rx's ?Medication ?Instructions ?Recorded apixaban 5 mg tablet (Eliquis) 10 mg (2 x 5 mg) PO BID 30 days 10/20/22 #120 tabs doxycycline hyclate 100 mg tablet 100 mg PO BID #14 tabs 10/20/22 omeprazole 40 mg capsule,delayed 40 mg PO DAILY@0630 #30 caps 10/20/22 release tramadol 50 mg tablet 50 mg PO Q6H PRN pain #20 tabs 10/20/22 Allergies Allergy/AdvReac Type Severity Reaction Status Date / Time No Known Allergies Allergy Verified 05/27/24 03:31 Review of Systems 2 Review of Systems: Yes all other systems are reviewed and are negative PMFSH Past Medical History Medical History Psoriasis Social History Social History Household Members: Family Housing: Apartment Alcohol intake: never Patient Tobacco Use Status: Never used Tobacco Smoked in Last 30 Days: No Use of substances other than those prescribed or required for medical reasons: No Advance Directives: No Do you have a plan to hurt others: No Plan service: No Current occupational status: unemployed Physical Exam ED Vital Signs: Vital Signs - 24 hr 05/27/24 03:28 05/27/24 05:47 05/27/24 05:50 Temperature 98.0 F 97.9 F 97.9 F Pulse Rate 64 57 57 Respiratory Rate 16 18 18 Blood Pressure 191/94 H 146/79 H 146/79 H Pulse Oximetry 96 98 98 Oxygen Delivery Method Room Air Room Air Room Air BMI result Body Mass Index 37.9 Appearance: Alert. Oriented X3. No acute distress. Eyes: PERRLA, No Nystagmus ENT: Pharynx normal. Oral Mucosa moist Neck: Normal inspection. Neck supple. CVS: Normal heart rate and rhythm. Pulses normal. Respiratory: No respiratory distress. Equal air entry bilateral, no wheezing/rales/rhonchi Abdomen: Soft and nontender. Bowel sounds are present, no mass palpable, no CVA tenderness Skin: Skin warm and dry. Normal skin color. Normal skin turgor. Extremities: No lower extremity edema. No calf tenderness Neuro: Oriented X 3. No motor deficit. No sensory deficit.No cerebellar signs , cranial nerves II-XII intact Medical Decision Making Medical Decision Making [facility] Narrative: Patient with a essential hypertension noncompliant with medication labs are stable patient's blood pressure improved as he took his hydralazine at home prior to arrival patient does have medications at home advised to continue his medication follow up with PCP at this time there is no signs of end-organ damage Differential Diagnosis Differential Diagnoses: The differential diagnosis associated with the presentation includes Lab Data [facility] Lab Attestation statement: I reviewed the patient's lab results. 05/27/24 03:43 05/27/24 03:43 Labs: Lab Results 05/27/24 Range/Units 03:43 WBC 6.9 (4.8-10.8) X10*3/uL RBC 4.86 (4.60-5.80) X10*6/uL Hgb 14.5 (14.0-18.0) g/dl Hct 39.9 L (42.0-52.0) % MCV 82.1 (80.0-98.0) fL MCH 29.8 (27.0-33.0) pg MCHC 36.3 H (31.0-36.0) g/dl RDW 11.6 (11.0-16.0) % Plt Count 212 (160-400) X10*3/uL MPV 9.5 (9.4-12.4) fL Immature Gran % (Auto) 0.1 (0.0-0.4) % Neut % (Auto) 53.3 (45-73) % Lymph % (Auto) 26.8 (20-40) % [place] % (Auto) 14.1 H (2-11) % Eos % (Auto) 5.3 H (0-4) % Baso % (Auto) 0.4 (0-2) % Lymph # (Auto) 1.9 (1.2-4.9) X10*3/uL [place] # (Auto) 1.0 (0.1-1.2) X10*3/uL Eos # (Auto) 0.4 (0.0-0.4) X10*3/uL Baso # (Auto) 0.0 (0.0-0.2) X10*3/uL Abs Immat Gran (auto) 0.01 (0.00-0.03) X10*3/uL Absolute Neuts (auto) 3.7 (2.0-8.3) x10*3/uL Absolute Nucleated RBC 0.000 (0.0-0.012) X10*3/uL Nucleated RBC % (auto) 0.0 (0.0-0.2) /100WBC Sodium 138 (135-145) mmol/L Potassium 3.6 (3.3-5.1) mmol/L Chloride 105 (96-108) mmol/L Carbon Dioxide 25 (22-29) mmol/L Anion Gap 12 (12-20) BUN 16 (9-16) mg/dL Creatinine 0.74 (0.5-1.4) mg/dL Estim Creat Clear Calc 121.4 Estimated GFR > 60 Random Glucose 107 (60-115) mg/dL Calcium 10.0 (8.4-10.2) mg/dL Total Bilirubin 0.3 (0.0-1.0) mg/dL AST 48 H (5-37) U/L ALT 52 H (0-40) U/L Alkaline Phosphatase 56 (39-117) U/L Troponin I High Sens 63.0 H D (<3.5-35.0) ng/L Total Protein 7.9 (6.5-8.0) g/dL Albumin 4.5 (3.5-5.0) g/dL Urine Color Yellow Urine Appearance Clear Urine pH 7.0 (5.0-9.0) Ur Specific [place] <= 1.005 (1.005-1.025) Urine Protein Negative (Neg-Trace) mg/dL Urine Glucose (UA) Negative (Negative) mg/dL Urine Ketones Negative (Negative) mg/dL Urine Blood Negative (Negative) Urine Nitrite Negative (Negative) Ur Leukocyte Esterase Negative (Negative) Discharge Plan Discharge Clinical Impression: Hypertension Patient Disposition: Home, Self-Care Instructions: Chronic Hypertension (ED) Additional Instructions: Got to take your blood pressure medication losartan, amlodipine, hydralazine If you do not take your medication blood pressure will go high and can threaten your life Follow with your PCP Prescriptions: No Action ascorbic acid (vitamin C) [Vitamin C] 1,000 mg Tablet 1,000 mg PO DAILY losartan-hydrochlorothiazide [Hyzaar] 100-25 mg Tablet 1 tab PO DAILY hydralazine 50 mg Tablet 50 mg PO BIDWM cholecalciferol (vitamin D3) [Vitamin D3] 25 mcg (1,000 unit) Tablet 25 mcg PO DAILY Eliquis 5 mg Tablet 10 mg PO BID 30 Days Qty: 120 0RF Rx Instructions: 4 more days of 10mg bid, then decrease to 5mg bid doxycycline hyclate 100 mg tablet 100 mg PO BID Qty: 14 0RF omeprazole 40 mg Capsule,Delayed Release(Dr/Ec) 40 mg PO DAILY@0630 Qty: 30 0RF tramadol 50 mg tablet 50 mg PO Q6H PRN (Reason: pain) Qty: 20 0RF Interventions: ED Discharge Assessment Last Done: 05/27/24 05:50 Discharge Date/Time: 05/27/24 05:51 Print Language: Romanian
[2024-05-27 05:47] VITALS: BP 146/79; PULSE 57; RESP 18; TEMP 36.6; O2SAT 98
[2024-05-27 05:50] VITALS: BP 146/79; PULSE 57; RESP 18; TEMP 36.6; O2SAT 98
== END 2024-05-27 05:51 | disposition home or self-care (01) ==
PROVIDERS: Emergency Provider Internal Medicine
DX: R00.1 Bradycardia, unspecified (principal); I10 Essential (primary) hypertension; Z91.148 Patient's other noncompliance with medication regimen for other reason; Z79.899 Other long term (current) drug therapy
CPT/HCPCS: 36415; 80053; 81003; 84484; 85025; 93005; 99283; 99285

== ENCOUNTER → 2024-05-27 03:43 | Outpatient (BNV) | payer OTHER, SELFPAY | PROVIDERS: Emergency Provider Internal Medicine; Visit Provider Internal Medicine | DX: R00.1 Bradycardia, unspecified (principal) | CPT/HCPCS: 93010 ==

== ENCOUNTER 2024-09-14 19:01 | Emergency (ER) | payer OTHER, SELFPAY ==
--- NOTE | ~2024-09-14 | CT_ITS ---
CLINICAL HISTORY: dizziness CT head without contrast Comparison: None Findings: No intra-axial mass, midline shift, hydrocephalus, or acute hemorrhage. No significant atrophy-like change or white matter disease. There is no sinus or mastoid fluid. The orbits are unremarkable. There is no acute fracture. IMPRESSION: 1. No acute intracranial findings. This document has been electronically signed by: Mervin Zamora MD on 09/14/2024 21:19:03
[2024-09-14 19:32] VITALS: BP 157/76; PULSE 75; RESP 18; TEMP 36.8; O2SAT 95; BMI 37.0
--- NOTE | 2024-09-14 19:40 | ECG_ITS ---
Test Reason : DIZZYNESS Blood Pressure : */* mmHG Vent. Rate : 63 BPM Atrial Rate : 63 BPM P-R Int : 136 ms QRS Dur : 114 ms QT Int : 398 ms P-R-T Axes : 37 14 101 degrees QTcB Int : 407 ms Normal sinus rhythm Nonspecific ST and T wave abnormality Abnormal ECG When compared with ECG of 27-May-2024 03:43, No significant change was found Referred By: Bart Becker Electronically Signed By: Paul Ann
--- NOTE | 2024-09-14 19:40 | ED_ITS ---
HPI - General Adult General Chief complaint: Dizziness Stated complaint: dizzy Time Seen by Provider: 09/14/24 23:23 Source: patient Mode of arrival: ambulatory Limitations: no limitations History of Present Illness ED Provider: DR. Luong HPI narrative: A 59-year-old male came in for evaluation of dizziness room spinning since yesterday symptoms has been intermittent only when he changed position, otherwise no ear pain or hearing symptoms, no headache, no blurry vision, no weakness, no numbness, no double vision. No chest pain, no shortness of breath. Related Data Home Medications ?Medication ?Instructions ?Recorded ?Confirmed ascorbic acid (vitamin C) 1,000 mg 1,000 mg PO DAILY 10/13/22 10/13/22 tablet (Vitamin C) cholecalciferol (vitamin D3) 25 25 mcg PO DAILY 10/13/22 10/13/22 mcg (1,000 unit) tablet (Vitamin D3) hydralazine 50 mg tablet 50 mg PO BIDWM 10/13/22 10/13/22 losartan 100 1 tab PO DAILY 10/13/22 10/13/22 mg-hydrochlorothiazide 25 mg tablet (Hyzaar) Previous Rx's ?Medication ?Instructions ?Recorded apixaban 5 mg tablet (Eliquis) 10 mg (2 x 5 mg) PO BID 30 days 10/20/22 #120 tabs doxycycline hyclate 100 mg tablet 100 mg PO BID #14 tabs 10/20/22 omeprazole 40 mg capsule,delayed 40 mg PO DAILY@0630 #30 caps 10/20/22 release tramadol 50 mg tablet 50 mg PO Q6H PRN pain #20 tabs 10/20/22 meclizine 25 mg tablet 25 mg PO BID PRN dizziness #14 tabs 09/14/24 Allergies Allergy/AdvReac Type Severity Reaction Status Date / Time No Known Allergies Allergy Verified 09/14/24 19:33 Review of Systems 2 Review of Systems: All other systems are reviewed and are negative Constitutional: Reports as per HPI and Reports no additional constitutional complaints Eyes: Reports as per HPI and Reports no additional eye complaints Reports system reviewed and no additional complaints, except as documented Cardiovascular: Reports as per HPI and Reports no additional cardiovascular complaints Respiratory: Reports as per HPI and Reports no additional respiratory complaints Gastrointestinal: Reports as per HPI and Reports no additional gastrointestinal complaints Genitourinary: Reports no additional female genitourinary complaints Musculoskeletal: Reports no additional musculoskeletal complaints Skin/Breast: Reports system reviewed and no additional complaints, except as docu Psychiatric: Reports no additional psychiatric complaints Endocrine: Reports no additional endocrine complaints Hematologic/Lymphatic: Reports no additional hematologic/lymphatic complaints Allergic/Immunologic: Reports no additional allergic/immunologic complaints Reports system reviewed and no additional complaints, except as documented and Reports Abnormal speech present [facility] Past Medical History Medical History Psoriasis Social History Social History Household Members: Family Housing: Apartment Alcohol intake: never Patient Tobacco Use Status: Never used Tobacco Smoked in Last 30 Days: No Use of substances other than those prescribed or required for medical reasons: No Advance Directives: No Advance Directives Information Provided: No service: No Current occupational status: unemployed Physical Exam ED Vital Signs: Vital Signs - 24 hr 09/14/24 19:32 09/14/24 21:28 09/14/24 22:34 Temperature 98.3 F 98.3 F Pulse Rate 75 58 57 Respiratory Rate 18 22 H Blood Pressure 157/76 H 146/71 H 116/74 Pulse Oximetry 95 97 Oxygen Delivery Method Room Air Room Air 09/14/24 22:40 09/14/24 22:45 09/15/24 01:38 Temperature 98.5 F Pulse Rate 68 68 57 Respiratory Rate 18 Blood Pressure 108/75 160/87 H 121/70 Pulse Oximetry 95 Oxygen Delivery Method Room Air 09/15/24 01:42 Temperature 98.5 F Pulse Rate 57 Respiratory Rate 18 Blood Pressure 121/70 Pulse Oximetry 95 Oxygen Delivery Method Room Air BMI result Body Mass Index 37.0 Vital signs have been reviewed and appear to be correct. Blood pressure elevated. Heart rate normal. Respiratory rate normal. Temperature normal. Oxygen saturation normal. Appearance: Alert. Oriented X3. No acute distress. Head: Normal external exam. Normocephalic. Atraumatic. No Ramos signs noted. No raccoon eyes noted Eyes: PERRLA. EOMI. Conjunctiva and sclera normal. Eyelids normal. ENT: TM's Normal. Pharynx normal. Uvula midline. Moist mucous membranes. No trismus noted. No drooling noted. No muffled voice noted. Neck: Normal inspection. Neck supple. FROM. No adenopathy. Thyroid Normal. No meningeal signs. No neck mass noted. CVS: Normal heart rate and rhythm. Heart sound normal. No murmurs noted. Pulses normal throughout. Respiratory: No respiratory distress. Painless inspiration. Breath sounds normal. No wheezes/rales/rhonchi noted. Chest nontender. No accessory muscle usage noted or decreased air movement noted. Abdomen: Soft and nontender. Bowel sounds normal in all 4 quadrants. No distention noted. No organomegaly noted. No visible injury noted. Back: No CVA tenderness. Full range of motion noted. Skin: Skin warm and dry. Normal skin color. Normal skin turgor. No rashes/lesions/lacerations noted. Extremities: No lower extremity edema. Extremities exhibit normal range of motion. Extremities nontender. Neuro: Mental status: Normal attention, orientation, memory, and affect. Cranial nerves: Pupils are equal, round and reactive to light, EOMI, visual rothman are fall, face is symmetric, facial sensations are normal. Motor examination normal muscle tone, strength to 4 extremities. DTR are +2, planter's are flexor. Sensory exam; normal coordination, no ataxia, gait stable. Cerebellar exam: [id number] and [id number] is normal. Extrapyramidal system: No tremors, no rigidity with normal facial expressions. Pronator drift not present Course Course Course Narrative: ANDI; 59-year-old male presents to ED for dizziness described as room spinning. Patient denies any slurred speech, facial droop, paralysis of extremities. Patient denies any loss of vision. NIH score is 0. Labs EKG head CT scan ordered. Reevaluation(s) Reevaluation #1: 09/15/2024; chronic elevation of troponin with no delta change today no chest pain, with unchanged EKG from prior EKG. Dizziness with normal neuro exam and unremarkable head CT patient is on AC therapy, patient improved while he is here. Time: 01:45 Medications Administered Discontinued Medications Generic Name Dose Route Start Last Admin Trade Name Freq PRN Reason Stop Dose Admin Meclizine HCl 25 mg 09/14/24 23:29 09/14/24 23:56 Meclizine Hcl 25 Mg Tablet PO 09/14/24 23:30 25 mg ONCE ONE Administration Medical Decision Making Differential Diagnosis Differential Diagnoses: The differential diagnosis associated with the presentation includes (Intracranial bleed, CVA, peripheral vertigo, dehydration, electrolyte derangement, severe anemia, ACS, chronic troponin elevation.) Admission/Observation Consideration of admission/observation: Escalation of care including admission/observation considered Lab Data MDM Lab Attestation statement: I reviewed the patient's lab results. 09/14/24 19:54 09/14/24 19:54 Labs: Lab Results 09/14/24 09/14/24 09/15/24 Range/Units 19:54 22:07 01:00 WBC 6.4 (4.8-10.8) X10*3/uL RBC 5.02 (4.60-5.80) X10*6/uL Hgb 15.0 (14.0-18.0) g/dl Hct 40.7 L (42.0-52.0) % MCV 81.1 (80.0-98.0) fL MCH 29.9 (27.0-33.0) pg MCHC 36.9 H (31.0-36.0) g/dl RDW 11.8 (11.0-16.0) % Plt Count 228 (160-400) X10*3/uL MPV 9.4 (9.4-12.4) fL Immature Gran % (Auto) 0.2 (0.0-0.4) % Neut % (Auto) 57.2 (45-73) % Lymph % (Auto) 26.9 (20-40) % [place] % (Auto) 10.2 (2-11) % Eos % (Auto) 4.9 H (0-4) % Baso % (Auto) 0.6 (0-2) % Lymph # (Auto) 1.7 (1.2-4.9) X10*3/uL [place] # (Auto) 0.7 (0.1-1.2) X10*3/uL Eos # (Auto) 0.3 (0.0-0.4) X10*3/uL Baso # (Auto) 0.0 (0.0-0.2) X10*3/uL Abs Immat Gran (auto) 0.01 (0.00-0.03) X10*3/uL Absolute Neuts (auto) 3.6 (2.0-8.3) x10*3/uL Absolute Nucleated RBC 0.000 (0.0-0.012) X10*3/uL Nucleated RBC % (auto) 0.0 (0.0-0.2) /100WBC PT 12.1 (10.9-12.4) SEC INR 1.0 (0.9-1.1) APTT 30.0 (26.0-36.8) SEC Sodium 140 (135-145) mmol/L Potassium 3.5 (3.3-5.1) mmol/L Chloride 103 (96-108) mmol/L Carbon Dioxide 28 (22-29) mmol/L Anion Gap 13 (12-20) BUN 12 (9-16) mg/dL Creatinine 0.92 (0.5-1.4) mg/dL Estim Creat Clear Calc 95.2 Estimated GFR > 60 Random Glucose 218 H (60-115) mg/dL Calcium 10.1 (8.4-10.2) mg/dL Total Bilirubin 0.4 (0.0-1.0) mg/dL AST 38 H (5-37) U/L ALT 50 H (0-40) U/L Alkaline Phosphatase 53 (39-117) U/L Troponin I High Sens 45.0 H 44.8 H 40.3 H (<3.5-35.0) ng/L Total Protein 7.7 (6.5-8.0) g/dL Albumin 4.5 (3.5-5.0) g/dL Independent Interpretation I performed an independent interpretation of an: CT Scan (Head: No acute intracranial pathology.) Radiology Impression Discussion of test interpretation with radiology: I have reviewed the radiologist's reading. Discharge Plan Discharge Clinical Impression: Peripheral vertigo Patient Disposition: Home, Self-Care Instructions: Vertigo (DC) Prescriptions: New meclizine 25 mg tablet 25 mg PO BID PRN (Reason: dizziness) Qty: 14 0RF No Action ascorbic acid (vitamin C) [Vitamin C] 1,000 mg Tablet 1,000 mg PO DAILY losartan-hydrochlorothiazide [Hyzaar] 100-25 mg Tablet 1 tab PO DAILY hydralazine 50 mg Tablet 50 mg PO BIDWM cholecalciferol (vitamin D3) [Vitamin D3] 25 mcg (1,000 unit) Tablet 25 mcg PO DAILY Eliquis 5 mg Tablet 10 mg PO BID 30 Days Qty: 120 0RF Rx Instructions: 4 more days of 10mg bid, then decrease to 5mg bid doxycycline hyclate 100 mg tablet 100 mg PO BID Qty: 14 0RF omeprazole 40 mg Capsule,Delayed Release(Dr/Ec) 40 mg PO DAILY@0630 Qty: 30 0RF tramadol 50 mg tablet 50 mg PO Q6H PRN (Reason: pain) Qty: 20 0RF Interventions: ED Discharge Assessment Last Done: 09/15/24 01:42 Discharge Date/Time: 09/15/24 01:43 Print Language: South African
--- OUTSIDE RECORDS SUMMARY | 2024-09-14 19:47 | XMS_ITS | Clinical Summary ---
Author Organization [facility] ity Address [address] [place] [address] Care Team Providers Care Welding Machine Feeder Name Role Phone Unavailable Primary Care Provider Unavailabl e Social History Tobacco Use Types Packs/Day Years Used Date Smoking Tobacco: Never Assessed Sex and Gender Information Value Date Recorded Sex Assigned at Not on file Legal Sex Male 12:59 AM EST Gender Identity Not on file Sexual Orientation Not on file Plan of Treatment Health Maintenance Due Date Last Done Comments DTaP,Tdap,and Td Vaccines (1 - Tdap) 09/04/1982 Pneumococcal Vaccine: 50+ Ye ars (1 of 1 - PCV) 09/04/2013 Zoster Vaccines (1 of 2) 09/04/2013 COVID-19 Vaccine (1 - 2023-2 5 season) 2024 Influenza Vaccine (#1) 2024 RSV Immunization Adult Patie nts (1 - 1-dose 75+ series) 09/04/2038 HIB Vaccines Aged Out No longer eligi ble based on patient's age to complete this topic HPV Vaccines Aged Out No longer eligi ble based on patient's age to complete this topic Hepatitis A Vaccines Aged Out No long er eligible based on patient's age to complete this topic Hepatitis B Vaccines Aged Out No long er eligible based on patient's age to complete this topic IPV Vaccines Aged Out No longer eligi ble based on patient's age to complete this topic MMR Vaccines Aged Out No longer eligi ble based on patient's age to complete this topic Meningococcal ACWY Vaccine Aged Out N o longer eligible based on patient's age to complete this topic Meningococcal B Vaccine Aged Out No l onger eligible based on patient's age to complete this topic Pneumococcal Vaccine: Pediat rics (0 to 5 Years) and At-Risk Patients (6 to 64 Years) Aged Out No longer eligible b ased on patient's age to complete this topic RSV Immunization Patients Un ulisses 20 months Aged Out No longer eligible b ased on patient's age to complete this topic Varicella Vaccines Aged Out No longer eligible based on patient's age to complete this topic
--- OUTSIDE RECORDS SUMMARY | 2024-09-14 19:47 | XMS_ITS | Patient Health Record ---
Author Organization [facility] Address [address] [place] [address] Care Team Providers Care Scientist Electronics Name Role Phone DAVID NEVAREZ Primary Care Provider U germainailable Gerry Child Unavailable [phone] Migration, Provider Unavailable Unavailable Allergies No Known Allergies Reason For Referral No Information Medications Medication SIG (Take, Route, Frequency, Duration) Notes Start Date End Date Status hydrALAZINE HCl 50 MG 1 tab(s) orally 4 times a day for 30 day(s) 03/28/2022 Active HYDROcodone-Ibuprofen 5-200 MG 1 tab(s) orally every 4 hours 03/28/2022 Active Rosuvastatin Calcium 20 MG 1 tab(s) oral ly once a day for 30 day(s) 03/28/2022 Active Sucralfate 1 GM 1 tab(s) orally 4 ti mes a day (before meals and at bedtime) for 30 day(s) 03/28/2022 Active Losartan Potassium-HCTZ 100-25 MG for 90 Active Gabapentin 300 MG for 90 Ac tive Tamsulosin HCl 0.4 MG 1 cap(s) orally on ce a day for 30 day(s) 03/28/2022 Active Social History Sex Assigned At : Social History Observation Description Sex Assigned At Male Problems Problem Type SNOMED Code ICD Code Onset Dates Problem Status W/U Status Risk Notes Problem 812407560 GERD without esophagitis (K21.9) Active confirmed Problem [id number] Fatty liver disease, nonalcoholic (K76.0) Active confirmed Encounters Encounter Location Date Provider Diagnosis [facility] [address] [place] [address] 02/29/2024 Provider Migration Plan Of Treatment Pending Test Test Name Order Date Colonoscopy @ [facility] 03/28/2022 EGD @ [facility] 03/28/2022 Fibroscan at [facility] 03/28/2022 Insurance Providers Payer Name Payer Address Payer Phone Subscriber Number Group Number Insured Name Patient Relationship to Insured Coverage Start Date Coverage End Date [facility] [address] [place] [address] [id number] STEPHANIE HENSON Self - patient is the insured 4 MEDICAID SEC [address] [place] [address] [id number] STEPHANIE HENSON Self - patient is the insured Medical (General) History Medical History History ICD Code HIGH BLOOD PRESSURE HIGH CHOLESTEROL Surgical History Surgery Date(Month/Year)
--- OUTSIDE RECORDS SUMMARY | 2024-09-14 19:47 | XMS_ITS ---
Author Organization [facility] Address [address] [place] [address] Care Team Providers Care Clerical Adjuster Name Role Phone DAVID NEVAREZ Primary Care Provider U germainailable Gerry Child Unavailable [phone] Migration, Provider Unavailable [facility]available [facility] Con[facility] Encounter Medications Medication SIG (Take, Route, Frequency, Duration) [...] at bedtime) for 30 day(s) 03/28/2022 Active Gabapentin 300 MG for 90 Ac tive Losartan Potassium-HCTZ 100-25 MG for 90 Active Tamsulosin HCl 0.4 MG 1 cap(s) orally on ce a day for 30 day(s) 03/28/2022 Active Social History Sex Assigned At : Social History Observation Description Sex Assigned At Male Encounters Encounter Location Date Provider Diagnosis [facility] [address] [place] [address] 02/29/2024 Provider Migration Plan Of Treatment No Information Progress Notes * GUILLERMO HENSONODOB: (59 yo M)Acc No.[id number]:02/29/2024 Patient:ESPERANZA FROST Provider:? :1965???Age:58 Y???Sex:Male [place] e:02/29/2024 Address:[address] [facility] Pcp:DAVID JAIME Subjective: * Chief Complaints: * ???1. Mult[facility] To Med[facility] Con version Encounter. * Medical History:? * Medications:?Taking Tamsulos in HCl 0.4 MG Capsule 1 cap(s) orally once a day , Taking Losartan Potassium-HCTZ 100-25 MG Tablet , Taking Sucralfate 1 GM Tablet 1 tab(s) orally 4 times a day (before meals and at bedtime) , Taking Gabapentin 300 MG Capsule , Taking HYDROcodone-Ibuprofen 5-200 MG Tablet 1 tab(s) orally every 4 hours , Taking hydrALAZINE HCl 50 MG Tablet 1 tab(s) orally 4 times a day , Taking Rosuvastatin Calcium 20 MG Tablet 1 tab(s) orally once a day Objective: * Vitals:? Assessment: Plan: * Treatment: * Billing Information: * Visit Code:? * Procedure Codes:? * Electronic signature of Prov ider Migration on 09/14/2024 at 07:46 PM EDT Sign off status: Pending * Provider:? Date:?02/29/2024 Generated for Enedina garrido/Tai/Odettesmadelita on:?09/14/2024 07:46 PM EDT
[2024-09-14 19:59] LABS: MANUAL DIFF FLAG NO
[2024-09-14 20:01] LABS: Basophils Percent Auto 0.6 % (0-2); Eosinophils Absolute Auto 0.3 X10*3/uL (0.0-0.4); Eosinophils Percent Auto 4.9 % (0-4); Hematocrit 40.7 % (42.0-52.0); Imm Gran Abs Auto 0.01 X10*3/uL (0.00-0.03); Imm Gran Pct Auto 0.2 % (0.0-0.4); Lymphocytes Absolute Auto 1.7 X10*3/uL (1.2-4.9); Lymphocytes Percent Auto 26.9 % (20-40); Mean Corpuscular HGB Conc 36.9 g/dl (31.0-36.0); Mean Corpuscular Hemoglobin 29.9 pg (27.0-33.0); Mean Corpuscular Volume 81.1 fL (80.0-98.0); Mean Platelet Volume 9.4 fL (9.4-12.4); Monocytes Absolute Auto 0.7 X10*3/uL (0.1-1.2); Monocytes Percent Auto 10.2 % (2-11); Neutrophils Absolute Auto 3.6 x10*3/uL (2.0-8.3); Neutrophils Percent Auto 57.2 % (45-73); Platelet Count 228 X10*3/uL (160-400); Red Blood Count 5.02 X10*6/uL (4.60-5.80); Red Cell Distribution Width 11.8 % (11.0-16.0); White Blood Count 6.4 X10*3/uL (4.8-10.8)
[2024-09-14 20:05] LABS: Prothrombin Time 12.1 SEC (10.9-12.4)
[2024-09-14 20:13] LABS: Alanine Aminotransferase 50 U/L (0-40); Albumin Level 4.5 g/dL (3.5-5.0); Alkaline Phosphatase 53 U/L (39-117); Anion Gap 13 (12-20); Aspartate Amino Transferase 38 U/L (5-37); Bilirubin Total 0.4 mg/dL (0.0-1.0); Blood Urea Nitrogen 12 mg/dL (9-16); Calcium 10.1 mg/dL (8.4-10.2); Carbon Dioxide 28 mmol/L (22-29); Chloride 103 mmol/L (96-108); Creatinine Clr Calc Pharmacy 95.2; Estimated Glomerular Filt Rate > 60; Glucose Random 218 mg/dL (60-115); Potassium 3.5 mmol/L (3.3-5.1); Sodium 140 mmol/L (135-145); Total Protein 7.7 g/dL (6.5-8.0)
[2024-09-14 21:28] VITALS: BP 146/71; PULSE 58; RESP 22; TEMP 36.8; O2SAT 97
--- NOTE | 2024-09-14 22:11 | PC.NURSE ---
pt a&o, denies any sob or chest pain, pt oob to bathroom with a steady gait. pt changed into hospital attire and pt place on bedside monitor.
[2024-09-14 22:34] VITALS: BP 116/74; PULSE 57
[2024-09-14 22:34] LABS: Troponin-I High Sensitivity 44.8 ng/L (<3.5-35.0)
[2024-09-14 22:40] VITALS: BP 108/75; PULSE 68
[2024-09-14 22:45] VITALS: BP 160/87; PULSE 68
[2024-09-14] MEDS: Meclizine HCl 25 MG TABLET PO (23:56)
--- NOTE | 2024-09-14 23:57 | PC.NURSE ---
medicated per mar. pt on bed side monitor.
[2024-09-15 01:25] LABS: Troponin-I High Sensitivity 40.3 ng/L (<3.5-35.0)
[2024-09-15 01:38] VITALS: BP 121/70; PULSE 57; RESP 18; TEMP 36.9; O2SAT 95
--- NOTE | 2024-09-15 01:41 | PC.NURSE ---
reviewed discharge instructions with pt. pt verbalized understanding, no sob or chest pain, pt ambulated with a steady gait upon discharge.
[2024-09-15 01:42] VITALS: BP 121/70; PULSE 57; RESP 18; TEMP 36.9; O2SAT 95
== END 2024-09-15 01:43 | disposition home or self-care (01) ==
PROVIDERS: Physician Assistant; Emergency Provider Emergency Medicine
DX: H81.393 Other peripheral vertigo, bilateral (principal); R94.31 Abnormal electrocardiogram [ECG] [EKG]; Z79.899 Other long term (current) drug therapy; Z51.81 Encounter for therapeutic drug level monitoring
CPT/HCPCS: 36415; 70450; 80053; 84484; 85025; 85610; 85730; 93005; 99284; 99285

== ENCOUNTER → 2024-09-14 19:40 | Outpatient (BNV) | payer OTHER, SELFPAY | PROVIDERS: Emergency Provider Emergency Medicine; Visit Provider Internal Medicine Cardiovascular Disease | DX: R94.31 Abnormal electrocardiogram [ECG] [EKG] (principal); R42 Dizziness and giddiness | CPT/HCPCS: 93010 ==

== ENCOUNTER → 2024-09-14 19:40 | Outpatient (BNV) | payer OTHER, SELFPAY | PROVIDERS: Visit Provider Student in an Organized Health Care Education/Training Program | DX: R42 Dizziness and giddiness (principal) | CPT/HCPCS: 70450 ==